=== PATIENT | female | born 1965 | race Caucasian/White ===

== ENCOUNTER 2017-11-10 08:25 | Inpatient (IN) | payer OTHER ==
[2017-11-06 10:52] VITALS: BMI 27.4
[2017-12-01] MEDS ORDERED: HEPARIN NA (PORCINE) 5,000 UNITS/ML 1ML VIAL ONE (07:19)
[2017-12-01] MEDS ORDERED: MIDAZOLAM HCL 2 MG/2 ML SINGLE DOSE VIAL ONE (07:29)
[2017-12-01] MEDS ORDERED: DESFLURANE GAS 240 ML BOTTLE IH ONE (07:43)
[2017-12-01] MEDS ORDERED: PROPOFOL 20 ML ONE ×18 (07:45→12:36)
[2017-12-01] MEDS ORDERED: ROCURONIUM BROMIDE 50 MG/5 ML VIAL ONE (07:54)
[2017-12-01] MEDS ORDERED: fentaNYL CITRATE 250 MCG/5 ML VIAL ONE ×2 (07:55)
[2017-12-01] MEDS ORDERED: THROMBIN (BOVINE) 5,000 UNIT VIAL TP ONE ×3 (07:59→09:23)
[2017-12-01] MEDS ORDERED: SUCCINYLCHOLINE CHLORIDE 200 MG/10 ML VIAL ONE (08:11)
[2017-12-01] MEDS ORDERED: VANCOMYCIN 1,000 MG VIAL (RESTRICTED TO ID ONLY) IVPB ONE (08:23)
[2017-12-01] MEDS ORDERED: ceFAZolin SODIUM 1 GM VIAL IVPB ONE ×2 (08:25→13:30)
[2017-12-01] MEDS ORDERED: TRANEXAMIC ACID 1000 MG/10 ML VIAL ONE ×2 (08:46→10:40)
[2017-12-01] MEDS ORDERED: GELATIN, ABSORBABLE 100 EACH SPONGE TP ONE ×2 (09:23)
[2017-12-01] MEDS ORDERED: DEXAMETHASONE SOD PHOSPHATE 4 MG/1 ML VIAL ONE ×5 (11:45)
[2017-12-01] MEDS ORDERED: ePHEDrine SULFATE 50 MG/1 ML AMPULE ONE (11:48)
[2017-12-01] MEDS ORDERED: BENZOIN/ALOE VERA/STORAX/TOLU 58 ML BOTTLE ONE (13:14)
[2017-12-01] MEDS ORDERED: ceFAZolin SODIUM 1 GM VIAL ONE ×2 (13:26→22:12)
--- NOTE | 2017-12-01 13:59 | OP ---
Operative Note - Note: Operative Date: 12/01/17 Pre-Operative Diagnosis: 1. T6-T7 disk herniation. 2. Thoracic myelopathy Operation: 1. Removal of spinal cord stimulator. 2. T6, T7 left sided pedicle osteotomies. 3. T4-T8 posterior decompression. 4. T6-T7 discectomy. 5. T4-T9 PISF. 6. BMAC autograft. 7. Allograft bone Post-Operative Diagnosis: Same as Pre-op Surgeon: Micheal Anthony Supervisory Civil Engineer: Bulmaro Anthony Anesthesiologist/INSTRUCTIONAL MEDIA SERVICES TECHNICIAN: Reilly London Anesthesia: General Specimens Removed: T6-T7 disc Estimated Blood Loss (mls): 750 Blood Volume Replaced (mls): 375 (Cell saver) Operative Report Dictated: Yes
--- NOTE | 2017-12-01 14:02 | PN ---
Progress Note (short form) - Note Progress Note: 52F s/p removal of spinal cord stimulator; T6, T7 left sided pedicle osteotomies ; T4-T8 posterior decompression; T6-T7 discectomy; T4-T9 PISF POD #0. -Admit to ICU post-op. -Maintain MAC >80mmHg. -Maintain hemoglobin > 10, transfuse PRBC as needed. -Pain control: per anaesthesia team. -q4h B/L LE NV checks. -DVT PPx: - Mechanical only: BLACK's, SCD's. -Incentive spirometry. -PT/OT/Rehab, OOB. -WBAT B/L LE. -Post-op antibiotics x 2 doses. -NPO until flatus. -d/c Moseley catheter when ambulating. -Care per medical hospitalist team. -Discharge planning. -Will follow. Micheal Anthony MD (Orthopaedic Surgery).
[2017-12-01] MEDS: ACETAMINOPHEN 1000 MG/100 ML VIAL (NON FORMULARY) IVPB SCH (14:03)
[2017-12-01] MEDS ORDERED: ONDANSETRON 4 MG/2 ML VIAL IVPUSH PRN ×2 (14:10→14:16)
[2017-12-01] MEDS ORDERED: PROMETHAZINE HCL 25 MG/1 ML VIAL IVPUSH PRN (14:10)
[2017-12-01] MEDS: LACTATED RINGERS SOLUTION 1,000 ML IV SCH (14:15)
[2017-12-01] MEDS ORDERED: LACTATED RINGERS SOLUTION 1,000 ML IV SCH (14:15)
[2017-12-01] MEDS ORDERED: PROMETHAZINE HCL 25 MG/1 ML VIAL IVPB PRN (14:16)
[2017-12-01] MEDS ORDERED: DEXAMETHASONE SOD PHOSPHATE 4 MG/1 ML VIAL IVPUSH ONE (14:16)
[2017-12-01] MEDS: HYDROmorphone *PCA* 10MG/50ML DISP.SYRIN PCA SCH (15:00)
[2017-12-01] MEDS ORDERED: CEFAZOLIN 1 GM in DEXTROSE 5%-WATER - 50 ML IVPB SCH ×2 (21:00→21:51)
[2017-12-01] MEDS ORDERED: DEXTROSE 5%-WATER - 50 ML IVPB ONE (22:13)
[2017-12-01] MEDS ORDERED: hydrALAZINE HCL 20 MG/ML VIAL IVPUSH ONE (23:15)
[2017-12-02 06:17] LABS: HEMATOCRIT 41.6 % (32.4-45.2); HEMOGLOBIN 14.4 GM/dL (10.7-15.3); MCH 30.5 pg (25.7-33.7); MCHC 34.6 g/dl (32.0-36.0); PLATELET COUNT 194 K/MM3 (134-434); RBC 4.72 M/mm3 (3.60-5.2); RDW 15.2 % (11.6-15.6); WHITE BLOOD COUNT 17.7 K/mm3 (4.0-10.0)
[2017-12-02] MEDS: ACETAMINOPHEN 1000 MG/100 ML VIAL (NON FORMULARY) IVPB SCH (06:31)
[2017-12-02 06:36] LABS: ANION GAP 8 (8-16); BLOOD UREA NITROGEN 9 mg/dL (7-18); CALCIUM 8.6 mg/dL (8.5-10.1); CHLORIDE 103 mmol/L (98-107); CO2 27 mmol/L (21-32); CREATININE 0.8 mg/dL (0.55-1.02); GLUCOSE,RANDOM 116 mg/dL (74-106); POTASSIUM 4.5 mmol/L (3.5-5.1); SODIUM 138 mmol/L (136-145)
--- NOTE | 2017-12-02 07:05 | OP ---
DATE OF OPERATION: 12/01/2017 SURGEON: Micheal Anthony M.D. PSYCH RN: Bulmaro Anthony M.D. PREOPERATIVE DIAGNOSIS: 1. Thoracic disk prolapse T6-7 with acute kyphosis. 2. For removal of in situ electrical stimulator. POSTOPERATIVE DIAGNOSIS: 1. Thoracic disk prolapse T6-7 with acute kyphosis. 2. For removal of in situ electrical stimulator. OPERATION PERFORMED: 1. Removal of electrical stimulator via separate right buttock and lumbar spine exposure. 2. Diskectomy C6-C7 with instrumented stabilization T4-T9. ANESTHESIA: General. ANTIBIOTICS GIVEN: 2 g Kefzol, 1 g vancomycin, 1 g Kefzol given intraoperatively, and also 10 mg Decadron given preoperatively, and 10 mg Decadron given intraoperatively. NEUROMONITORING: Utilized. CELL SAVER: Utilized. INTRAOPERATIVE FLUOROSCOPY: Utilized. OPERATION DETAILS: The patient was correctly identified, brought to the operating room. The back was prepped in routine manner with Betadine scrub solution, wiped with alcohol, DuraPrep applied, and the entire spine was exposed through this draping, which was a window drape. The indications for this operation were intractable midthoracic back pain with mild myelopathic signs and associated failed electrical stimulator which was utilized to treat this prolapse. The plan was for removal of internal fixator and appropriate transpedicular approach from posterior diskectomy and fusion from T4 to T9. In the prone position midline incision was utilized. The entire spine was exposed from T3 down to T10. In the prone position midline incision was utilized. The entire exposure of the sublaminar area as well as the soft tissue dissected off the tips of the spinous process, both left and right side. Once this had been performed, the transverse incision was made over the right buttock. Without any difficulty the electrical stimulator box was removed and dissected out. The wires were left, and then a separate incision at the area where the wires had been seated was then approached. The actual wires were noted and very easily pulled out of the epidural space and then freed completely, thus completely free the entire electrical stimulator apparatus. The wound was closed with subcutaneous 1 Vicryl, subcutaneous 3-0 Monocryl, with Steri-Strips. The difficulty of this operation was to identify the C6-C7 level. The imaging was available for intraoperative evaluation that included an MRI from T1 right down to sacrum. The shape of the bone, the levels and numbers of disks, as well as the area of the apex of the kyphosis were all taken in account to arrive at a level that was at T6-7 finding. This was done on a number of occasions. Once the entire dissection had been performed and we knew where T6-T7 was on left fluoroscopic x-ray, the lamina of 5 and 6 were resected and the lamina of T7 and right down to T8 were resected, freeing the cord completely. At the T6-7 level on the left hand side, the pedicle was identified. The dural elements were without any traction on the cord and very fine instrument placed so that no damage to the neural tissues occurred, and thus to shield the tissues from the Leksell rongeurs as well as the Midas-Benja noemy. The burring was through the pedicle and achieved the purpose of burring this down right flush to and just below the level of the posterior surface of the vertebral body both at T6 and T7 on the left hand side. This enabled very easy access to and visualization of the cord and the 2 nerve roots as they exited out the appropriate foramen. No other disturbance of intercostal vessels were noted. Coming from far lateral with virtually no retraction of the cord, a nerve root retractor was placed around the cord. It was held in that position to ensure no damage to the dura, and from under this segment using a Westerly probe and Jewell 4 probe, the large disk was identified. This was actually easily palpable as a large lump, and the 11 blade was made incised into the actual disk from the side. Using a petite rongeur as well as a very fine neurosurgical pituitary and upgoing pituitary rongeurs, the disk material was resected. Once this had been done, the lump was completely flattened in visually as well as palpably noted using Alva's to feel under ventral to the anterior surface of the dura. This was very different from what it was prior to this event taking place. Unfortunately at that point, motor evoked potentials level dropped, SSEP levels remained intact, and over the passage of the next hour, the signals slowly came back. It was at that point I ordered another 10 mg of Decadron and reinsured that the patient's blood pressure was maintained well. All Cell Saver blood was given back to the patient expeditiously. Blood loss was about 700 mL and 390 plus 400 mL of own concentrated blood was given back to her. To a completely independent site, the Jamshidi needle was seated into left posterior ilium, 60 mL of marrow were aspirated and this spun down for the CD34 cells. Once this had been completed and the entire decompression completed including the diskectomy, the pedicles of T4-5 as well as 6-7-8 were identified and a seating of the screws was first by drilling with a 3.2 drill bit, each pedicle screw measured 5.5 x 35 mm screws. These were Precision screws, and one screw measured 5.5 x 40. The screws, as discussed with the neuromonitoring team, were not tested because the adequacy of accuracy was minimal in thoracic screw evaluation. The rods were contoured appropriately, fixed solid into the screw heads, and tightened with the appropriate caps of the torque device. No cross links was utilized. Partial arthrodesis was performed. This was a combination of autologous as well as expanded bone. This was mixed with the CD34 cells with the bone marrow aspirate. This was placed posterolaterally alongside the lateral side of the actual rods themselves. On the basis of this, operation went extremely well. No complications excepting the drop in motor evoked potentials but not SSEPs, which remained concerning. The wounds were thoroughly lavaged throughout the closure, muscle 1 Vicryl, fascia 1 Vicryl , subcutaneous 1 and 2-0 Vicryl, skin 3-0 Monocryl with Steri-Strips. Drainage, nil. This in fact was a 4-layer closure in keeping with a complex wound closure of 25 cm. No other complications. MD LUIS ANTONIO Irving/[id number] MTDD
--- NOTE | 2017-12-02 08:40 | PN ---
Progress Note, Physician Chief Complaint: Pt resting comfortably in bed, using DIAMOND SORTER for pain control. No GA complaints - Current Medication List Current Medications: Active Medications Diazepam (Valium Injection -) 5 mg IVPUSH Q6H PRN PRN Reason: MUSCLE SPASMS Fentanyl (Sublimaze Injection -) 50 mcg IVPUSH [id number] PRN PRN Reason: PAIN-PACU ORDER X 4 DOSES ONLY Hydromorphone HCl (Dilaudid Sales Leader -) 0 mg DIAMOND SORTER DIAMOND SORTER KEVIN; Protocol Stop: 12/08/17 14:16 Last Admin: 12/01/17 15:00 Dose: 10 mg Lactated Ringer's (Lactated Ringers Solution) 1,000 mls @ 125 mls/hr IV ASDIR KEVIN Last Admin: 12/01/17 14:15 Dose: 125 mls/hr Ondansetron HCl (Zofran Injection) 4 mg IVPUSH Q6H PRN PRN Reason: NAUSEA AND/OR VOMITING Ondansetron HCl (Zofran Injection) 4 mg IVPUSH Q4H PRN PRN Reason: NAUSEA AND/OR VOMITING Promethazine HCl (Phenergan Injection -) 12.5 mg IVPB Q6H PRN PRN Reason: NAUSEA AND/OR VOMITING - Objective Vital Signs: Vital Signs Temperature 98.6 F 12/02/17 06:00 Pulse Rate 56 L 12/02/17 06:00 Respiratory Rate 18 12/02/17 06:00 Blood Pressure 163/101 12/02/17 06:00 O2 Sat by Pulse Oximetry (%) 100 12/01/17 19:59 Constitutional: Yes: Well Nourished, No Distress, Calm Neurological: Yes: WNL, Alert, Oriented Labs: CBC, BMP 12/02/17 06:00 12/02/17 06:00 Assessment/Plan POD#1 s/p T4-T8 spinal fusion with instrumentation under GA. Dilaudid DIAMOND SORTER. Doing well. Continue DIAMOND SORTER
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
--- NOTE | 2017-12-02 11:47 | PN ---
Teaching Attending Note Name of Resident: Carmelo Byrne ATTENDING PHYSICIAN STATEMENT I saw and evaluated the patient. I reviewed the resident's note and discussed the case with the resident. I agree with the resident's findings and plan as documented. SUBJECTIVE: Pt seen and examined in the ICU. Briefly, 52yo female with h/o thoracic herniated discs who underwent elective T6, T7 left sided pedicle osteotomies/T4- T8 posterior decompression/T6-T7 discectomy/T4-T9 PISF. EBL 750mL, 375mL cell saver returned. Received 1 unit PRBC, 2400mL crystalloid. States pain relatively controlled. No shortness of breath or chest pain. No flatus yet. No nausea or vomiting. OBJECTIVE: Vital Signs Period Temp Pulse Resp BP Sys/Watters Pulse Ox Last 24 Hr 97.2 F-98.6 F 50-96 13-22 118-181/60-101 99-100 Intake & Output 11/29/17 11/30/17 12/01/17 12/02/17 23:59 23:59 23:59 23:59 Intake Total 3700 1650 Output Total 2100 1200 Balance 1600 450 Gen: NAD at rest Heart: RRR Lung: decreased breath sounds at the bases Abd: soft, nontender Ext: no edema Back: dressing intact CBC, BMP 12/02/17 06:00 12/02/17 06:00 Active Medications Diazepam (Valium Injection -) 5 mg IVPUSH Q6H PRN PRN Reason: MUSCLE SPASMS Fentanyl (Sublimaze Injection -) 50 mcg IVPUSH [id number] PRN PRN Reason: PAIN-PACU ORDER X 4 DOSES ONLY Hydromorphone HCl (Dilaudid [employer] Coach -) 0 mg RIVER TRANSPORTATION WORKER RIVER TRANSPORTATION WORKER KEVIN; Protocol Stop: 12/08/17 14:16 Last Admin: 12/01/17 15:00 Dose: 10 mg Lactated Ringer's (Lactated Ringers Solution) 1,000 mls @ 125 mls/hr IV ASDIR KEVIN Last Admin: 12/01/17 14:15 Dose: 125 mls/hr Ondansetron HCl (Zofran Injection) 4 mg IVPUSH Q6H PRN PRN Reason: NAUSEA AND/OR VOMITING Ondansetron HCl (Zofran Injection) 4 mg IVPUSH Q4H PRN PRN Reason: NAUSEA AND/OR VOMITING Promethazine HCl (Phenergan Injection -) 12.5 mg IVPB Q6H PRN PRN Reason: NAUSEA AND/OR VOMITING ASSESSMENT AND PLAN: Disc Herniation s/p T6, T7 left sided pedicle osteotomies/T4-T8 posterior decompression/T6-T7 discectomy/T4-T9 PISF - pain control - incentive spirometry - IVF - d/c cohen when OOB - rehab/PT - PO/activity/DVT prophylaxis/disposition per surgery
--- NOTE | 2017-12-02 12:28 | CONSULT ---
Consultation: REQUESTING PROVIDER: Dr. Anthony CONSULT REQUEST: We have been asked to medically evaluate this patient for ( specify). HISTORY OF PRESENT ILLNESS: Patient is 52 yo F with a Pmhx of thoracic herniated disks, POD #1 for elective T6, T7 left sided pedicle osteotomies/T4- T8 posterior decompression/T6-T7 discectomy/T4-T9 PISF. Patient says pain is controlled with the medications. Has not passed Flatus or had BM. Denies sob, chest pain, nausea, vomiting, dizziness, dysuria. REVIEW OF SYSTEMS: CONSTITUTIONAL: Absent: fever, chills, diaphoresis, generalized weakness, malaise, loss of appetite, weight change HEENT: Absent: rhinorrhea, nasal congestion, throat pain, throat swelling, difficulty swallowing, mouth swelling, ear pain, eye pain, visual changes CARDIOVASCULAR: Absent: chest pain, syncope, palpitations, irregular heart rate, lightheadedness , peripheral edema RESPIRATORY: Absent: cough, shortness of breath, dyspnea with exertion, orthopnea, wheezing, stridor, hemoptysis GASTROINTESTINAL: Absent: abdominal pain, abdominal distension, nausea, vomiting, diarrhea, constipation, melena, hematochezia GENITOURINARY: Absent: dysuria, frequency, urgency, hesitancy, hematuria, flank pain, genital pain MUSCULOSKELETAL: Absent: myalgia, arthralgia, joint swelling, neck pain SKIN: Absent: rash, itching, pallor HEMATOLOGIC/IMMUNOLOGIC: Absent: easy bleeding, easy bruising, lymphadenopathy, frequent infections ENDOCRINE: Absent: unexplained weight gain, unexplained weight loss, heat intolerance, cold intolerance NEUROLOGIC: Absent: headache, focal weakness or paresthesias, dizziness, unsteady gait, seizure, mental status changes, bladder or bowel incontinence PHYSICAL EXAMINATION Vital Signs - 24 hr 12/01/17 12/01/17 12/01/17 14:06 14:20 14:30 Temperature 98.1 F Pulse Rate 69 68 59 L Respiratory 13 16 16 Rate Blood Pressure 134/96 136/91 145/81 O2 Sat by Pulse 100 100 99 Oximetry (%) 12/01/17 12/01/17 12/01/17 14:45 15:00 15:15 Temperature Pulse Rate 52 L 52 L 50 L Respiratory 18 16 16 Rate Blood Pressure 141/71 128/60 136/68 O2 Sat by Pulse 100 99 100 Oximetry (%) 12/01/17 12/01/17 12/01/17 15:30 15:45 16:00 Temperature Pulse Rate 52 L 51 L 51 L Respiratory 16 18 18 Rate Blood Pressure 137/69 146/78 152/74 O2 Sat by Pulse 100 99 99 Oximetry (%) 12/01/17 12/01/17 12/01/17 16:15 17:28 17:31 Temperature 97.7 F 97.2 F L Pulse Rate 51 L 58 L Respiratory 18 16 Rate Blood Pressure 148/72 144/75 O2 Sat by Pulse 100 Oximetry (%) 12/01/17 12/01/17 12/01/17 18:48 19:59 20:12 Temperature Pulse Rate 54 L 53 L Respiratory 18 18 15 Rate Blood Pressure 152/86 181/86 O2 Sat by Pulse 100 Oximetry (%) 12/01/17 12/02/17 12/02/17 22:00 00:00 02:00 Temperature 97.4 F L 97.6 F Pulse Rate 56 L 96 H 70 Respiratory 16 19 22 Rate Blood Pressure 178/84 118/74 128/79 O2 Sat by Pulse Oximetry (%) 12/02/17 12/02/17 12/02/17 04:00 06:00 08:00 Temperature 98.6 F Pulse Rate 60 56 L 73 Respiratory 20 18 17 Rate Blood Pressure 152/74 163/101 138/76 O2 Sat by Pulse Oximetry (%) 12/02/17 12/02/17 12/02/17 09:00 10:00 12:08 Temperature 98.3 F 98.3 F Pulse Rate 62 63 Respiratory 17 20 Rate Blood Pressure 144/84 159/76 O2 Sat by Pulse 100 Oximetry (%) GENERAL: A/o x 3, in NAD, comfortable EYES: Pupils equal, round and reactive to light, extraocular movements intact, sclera anicteric EARS, NOSE, THROAT: oropharynx clear without exudates. Moist mucous membranes. NECK: supple without lymphadenopathy, JVD, or masses. LUNGS: Breath sounds equal, clear to auscultation bilaterally. HEART: Regular rate and rhythm, normal S1 and S2 without murmur, rub or gallop. ABDOMEN: Soft, nontender, not distended, normoactive bowel sounds MUSCULOSKELETAL: Normal range of motion at all joints. Back with surgical dressing. LOWER EXTREMITIES: 2+ pulses, warm, well-perfused. No peripheral edema. NEUROLOGICAL: Cranial nerves II-XII intact. Normal speech. Laboratory Results - last 24 hr 12/01/17 12/01/17 12/02/17 06:12 06:50 06:00 WBC 17.7 H RBC 4.72 Hgb 14.4 Hct 41.6 MCV 88.0 MCH 30.5 MCHC 34.6 RDW 15.2 Plt Count 194 MPV 8.0 Sodium Potassium Chloride Carbon Dioxide Anion Gap BUN Creatinine Random Glucose Calcium Blood Type O POSITIVE Antibody Screen Negative Crossmatch See Detail Crossmatch IS Only See Detail 12/02/17 06:00 WBC RBC Hgb Hct MCV MCH MCHC RDW Plt Count MPV Sodium 138 Potassium 4.5 Chloride 103 Carbon Dioxide 27 Anion Gap 8 BUN 9 Creatinine 0.8 Random Glucose 116 H Calcium 8.6 Blood Type Antibody Screen Crossmatch Crossmatch IS Only Active Medications Generic Name Dose Route Start Last Admin Trade Name Freq PRN Reason Stop Dose Admin Diazepam 5 mg 12/01/17 14:03 Valium Injection - IVPUSH Q6H PRN MUSCLE SPASMS Fentanyl 50 mcg 12/01/17 16:13 Sublimaze Injection - IVPUSH [id number] PRN PAIN-PACU ORDER X 4 DOSES ONLY Hydromorphone HCl 0 mg 12/01/17 14:30 12/01/17 15:00 Dilaudid Electrical Transmission Engineer - AP PROCESSOR 12/08/17 14:16 10 mg AP PROCESSOR KEVIN Administration Protocol Lactated Ringer's 1,000 mls @ 125 mls/hr 12/01/17 14:15 12/01/17 14:15 Lactated Ringers Solution IV 125 mls/hr ASDIR KEVIN Administration Ondansetron HCl 4 mg 12/02/17 02:16 Zofran Injection IVPUSH Q6H PRN NAUSEA AND/OR VOMITING Ondansetron HCl 4 mg 12/01/17 14:16 Zofran Injection IVPUSH Q4H PRN NAUSEA AND/OR VOMITING Promethazine HCl 12.5 mg 12/01/17 14:16 Phenergan Injection - IVPB Q6H PRN NAUSEA AND/OR VOMITING ASSESSMENT/PLAN: #Removal of spinal cord stimulator w/ T6, T7 left sided pedicle osteotomies; T4- T8 posterior decompression; T6-T7 discectomy; T4-T9 PISF -POD #1 -Perioperative Ancef given; no need to continue -NPO until flatus -Remove cohen once ambulating. -Pain control via AP PROCESSOR pump currently -Incentive spirometer -Physical therapy ordered and weight-bearing as tolerated -Zofran 4mg IVP q4h PRN #FEN: -LR@125cc/hr -monitor lytes -NPO till flatus then advance to softs as tolerated #PPX: SCDs Dispo: We will continue to follow the patient. Thank you for this consultative opportunity. Visit type - Emergency Visit Emergency Visit: Yes ED Registration Date: 12/01/17 Care time: The patient presented to the Emergency Department on the above date and was hospitalized for further evaluation of their emergent condition. - New Patient This patient is new to me today: Yes Date on this admission: 12/02/17 - Critical Care Critical Care patient: Yes Total Critical Care Time (in minutes): 40 Critical Care Statement: The care of this patient involved high complexity decision making to prevent further life threatening deterioration of the patient 's condition and/or to evaluate & treat vital organ system(s) failure or risk of failure.
[2017-12-02] MEDS: ONDANSETRON 4 MG/2 ML VIAL IVPUSH PRN (17:49)
--- NOTE | 2017-12-02 18:26 | PN ---
Teaching Attending Note Name of Resident: Reilly Espitia ATTENDING PHYSICIAN STATEMENT I saw and evaluated the patient. I reviewed the resident's note and discussed the case with the resident. I agree with the resident's findings and plan as documented. SUBJECTIVE: OBJECTIVE: Vital Signs Temperature 98.3 F 12/02/17 12:08 Pulse Rate 79 12/02/17 16:42 Respiratory Rate 14 12/02/17 16:42 Blood Pressure 127/72 12/02/17 16:42 O2 Sat by Pulse Oximetry (%) 100 12/02/17 09:00 CBCD WBC 17.7 K/mm3 (4.0-10.0) H 12/02/17 06:00 RBC 4.72 M/mm3 (3.60-5.2) 12/02/17 06:00 Hgb 14.4 GM/dL (10.7-15.3) 12/02/17 06:00 Hct 41.6 % (32.4-45.2) 12/02/17 06:00 MCV 88.0 fl (80-96) 12/02/17 06:00 MCHC 34.6 g/dl (32.0-36.0) 12/02/17 06:00 RDW 15.2 % (11.6-15.6) 12/02/17 06:00 Plt Count 194 K/MM3 (134-434) 12/02/17 06:00 MPV 8.0 fl (7.5-11.1) 12/02/17 06:00 CMP Sodium 138 mmol/L (136-145) 12/02/17 06:00 Potassium 4.5 mmol/L (3.5-5.1) 12/02/17 06:00 Chloride 103 mmol/L (98-107) 12/02/17 06:00 Carbon Dioxide 27 mmol/L (21-32) 12/02/17 06:00 Anion Gap 8 (8-16) 12/02/17 06:00 BUN 9 mg/dL (7-18) 12/02/17 06:00 Creatinine 0.8 mg/dL (0.55-1.02) 12/02/17 06:00 Random Glucose 116 mg/dL (74-106) H 12/02/17 06:00 Calcium 8.6 mg/dL (8.5-10.1) 12/02/17 06:00 Current Medications Generic Name Dose Route Start Last Admin Trade Name Jluia PRN Reason Stop Dose Admin Fentanyl 50 mcg 12/01/17 16:13 Sublimaze Injection - IVPUSH [id number] PRN PAIN-PACU ORDER X 4 DOSES ONLY Hydromorphone HCl 0 mg 12/01/17 14:30 12/01/17 15:00 Dilaudid Electrical Control Assembler - CRNA 12/08/17 14:16 10 mg CRNA KEVIN Administration Protocol Lactated Ringer's 1,000 mls @ 125 mls/hr 12/01/17 14:15 12/01/17 14:15 Lactated Ringers Solution IV 125 mls/hr ASDIR KEVIN Administration Lorazepam 1 mg 12/01/17 14:03 Ativan Injection - IVPUSH Q6H PRN MUSCLE SPASMS Ondansetron HCl 4 mg 12/02/17 02:16 12/02/17 17:49 Zofran Injection IVPUSH 4 mg Q6H PRN Administration NAUSEA AND/OR VOMITING Ondansetron HCl 4 mg 12/01/17 14:16 Zofran Injection IVPUSH Q4H PRN NAUSEA AND/OR VOMITING Promethazine HCl 12.5 mg 12/01/17 14:16 Phenergan Injection - IVPB Q6H PRN NAUSEA AND/OR VOMITING Home Medications Medication Instructions Recorded NK [No Known Home Medication] 11/06/17 PE: per Dr. Anthony ASSESSMENT AND PLAN: # POD #! s/p Removal of spinal cord stimulator w/ T6, T7 left sided pedicle osteotomies; T4-T8 posterior decompression; T6-T7 discectomy; T4-T9 PISF as per further management DVT Px: SCDs; no AC as per surgery
[2017-12-03] MEDS: LACTATED RINGERS SOLUTION 1,000 ML IV SCH (01:00)
[2017-12-03 06:08] LABS: HEMATOCRIT 39.4 % (32.4-45.2); HEMOGLOBIN 13.4 GM/dL (10.7-15.3); MCH 30.3 pg (25.7-33.7); MCHC 34.1 g/dl (32.0-36.0); MEAN CELL VOLUME 88.9 fl (80-96); PLATELET COUNT 158 K/MM3 (134-434); RBC 4.43 M/mm3 (3.60-5.2); RDW 15.1 % (11.6-15.6)
[2017-12-03 06:36] LABS: ALK PHOS 50 U/L (45-117); ANION GAP 8 (8-16); BILIRUBIN,TOTAL 2.3 mg/dL (0.2-1.0); BLOOD UREA NITROGEN 8 mg/dL (7-18); CALCIUM 8.2 mg/dL (8.5-10.1); CHLORIDE 98 mmol/L (98-107); CO2 29 mmol/L (21-32); CREATININE 0.6 mg/dL (0.55-1.02); GLUCOSE,RANDOM 102 mg/dL (74-106); MAGNESIUM 1.6 mg/dL (1.8-2.4); PHOSPHOROUS 2.2 mg/dL (2.5-4.9); SGOT/AST 34 U/L (15-37); SGPT/ALT 28 U/L (12-78); SODIUM 135 mmol/L (136-145); TOT PROT 5.8 g/dl (6.4-8.2)
[2017-12-03] MEDS ORDERED: HYDROmorphone *PCA* 10MG/50ML DISP.SYRIN PCA ONE (07:42)
[2017-12-03] MEDS: HYDROmorphone *PCA* 10MG/50ML DISP.SYRIN PCA SCH (07:47)
--- NOTE | 2017-12-03 08:23 | PN ---
Physical Exam: SUBJECTIVE: Patient seen and examined. Offers no complaints. Says she felt a little warm last night. Has not had BM or passed flatus. Tmax 100. Sat 100% on RA. OBJECTIVE: Vital Signs Period Temp Pulse Resp BP Sys/Watters Pulse Ox Last 24 Hr 98.3 F-100 F 62-92 14-20 104-159/72-86 96-100 GENERAL: A/o x 3, in NAD, comfortable EYES: Pupils equal, round and reactive to light, extraocular movements intact, sclera anicteric EARS, NOSE, THROAT: oropharynx clear without exudates. Moist mucous membranes. NECK: supple without lymphadenopathy, JVD, or masses. LUNGS: Breath sounds equal, clear to auscultation bilaterally. HEART: Regular rate and rhythm, normal S1 and S2 without murmur, rub or gallop. ABDOMEN: Soft, nontender, not distended, normoactive bowel sounds MUSCULOSKELETAL: Normal range of motion at all joints. Back with surgical dressing. LOWER EXTREMITIES: 2+ pulses, warm, well-perfused. No peripheral edema. NEUROLOGICAL: Cranial nerves II-XII intact. Normal speech. Laboratory Results - last 24 hr 12/03/17 12/03/17 05:55 05:55 WBC 14.0 H RBC 4.43 Hgb 13.4 Hct 39.4 MCV 88.9 MCH 30.3 MCHC 34.1 RDW 15.1 Plt Count 158 MPV 8.0 Sodium 135 L Potassium 4.0 Chloride 98 Carbon Dioxide 29 Anion Gap 8 BUN 8 Creatinine 0.6 Creat Clearance w eGFR > 60 Random Glucose 102 Calcium 8.2 L Phosphorus 2.2 L Magnesium 1.6 L Total Bilirubin 2.3 H AST 34 ALT 28 Alkaline Phosphatase 50 Total Protein 5.8 L Albumin 3.0 L Active Medications Generic Name Dose Route Start Last Admin Trade Name Freq PRN Reason Stop Dose Admin Fentanyl 50 mcg 12/01/17 16:13 Sublimaze Injection - IVPUSH [id number] PRN PAIN-PACU ORDER X 4 DOSES ONLY Hydromorphone HCl 0 mg 12/01/17 14:30 12/03/17 07:47 Dilaudid Medical Donation Professional - WATER JET LOOM FIXER 12/08/17 14:16 0.2 mg WATER JET LOOM FIXER KEVIN Administration Protocol Lactated Ringer's 1,000 mls @ 125 mls/hr 12/01/17 14:15 12/03/17 01:00 Lactated Ringers Solution IV 125 mls/hr ASDIR KEVIN Administration Sodium Phosphate 30 mm/ 260 mls @ 62.5 mls/hr 12/03/17 07:19 Dextrose IVPB 12/03/17 11:28 ONCE ONE Lorazepam 1 mg 12/01/17 14:03 Ativan Injection - IVPUSH Q6H PRN MUSCLE SPASMS Magnesium Sulfate 2 gm 12/03/17 07:16 Magnesium Sulfate IVPB 12/03/17 07:17 ONCE ONE Ondansetron HCl 4 mg 12/02/17 02:16 12/02/17 17:49 Zofran Injection IVPUSH 4 mg Q6H PRN Administration NAUSEA AND/OR VOMITING Ondansetron HCl 4 mg 12/01/17 14:16 Zofran Injection IVPUSH Q4H PRN NAUSEA AND/OR VOMITING Promethazine HCl 12.5 mg 12/01/17 14:16 Phenergan Injection - IVPB Q6H PRN NAUSEA AND/OR VOMITING ASSESSMENT/PLAN: #Removal of spinal cord stimulator w/ T6, T7 left sided pedicle osteotomies; T4- T8 posterior decompression; T6-T7 discectomy; T4-T9 PISF -POD #2 -NPO until flatus -d/c cohen -Pain control via WATER JET LOOM FIXER pump currently -Incentive spirometer -Physical therapy and weight-bearing as tolerated -Zofran 4mg IVP q4h PRN #FEN: -LR@125cc/hr -monitor lytes -NPO till flatus then advance to softs as tolerated #PPX: SCDs cont. ICu monitoring Visit type - Emergency Visit Emergency Visit: Yes ED Registration Date: 12/01/17 Care time: The patient presented to the Emergency Department on the above date and was hospitalized for further evaluation of their emergent condition. - New Patient This patient is new to me today: No - Critical Care Critical Care patient: Yes Total Critical Care Time (in minutes): 40 Critical Care Statement: The care of this patient involved high complexity decision making to prevent further life threatening deterioration of the patient 's condition and/or to evaluate & treat vital organ system(s) failure or risk of failure.
--- NOTE | 2017-12-03 08:33 | PN ---
Progress Note (short form) - Note Progress Note: Post op day#2.P 88,BP 135/75 and Spo2 95% on RA.Patient stable and c/o pain score of 4-5/10 on movement on Dilaudid HYDRAULIC OIL TOOL OPERATOR.Will continue HYDRAULIC OIL TOOL OPERATOR today and will f/ u tomorrow.
--- NOTE | 2017-12-03 09:10 | PN ---
Physical Exam: SUBJECTIVE: Pt wants to move and be out of bed more. Pain well controlled on MARKETING RESEARCH COORDINATOR. No flatus yet. OBJECTIVE: Vital Signs Period Temp Pulse Resp BP Sys/Watters Pulse Ox Last 24 Hr 98.3 F-100 F 62-92 14-20 104-159/72-86 96-100 GENERAL: NAD, awake, alert, and fully oriented, laying in bed HEENT: EOMI, PRACHI, sclera anicteric and without injections, MMM LUNGS: CTA bilaterally. No wheezes, and no crackles. No accessory muscle use. HEART: RRR, normal S1 and S2 without murmur ABDOMEN: Soft, NT/ND, normoactive bowel sounds, no guarding. No hepatomegaly MUSCULOSKELETAL: Back with surgical bandage without any let-through; no erythema EXTREMITIES: 2+ DP pulses, warm, No peripheral edema. No calf tenderness NEUROLOGICAL: wire splicer II-XII intact. Strength 5/5 in upper extremity shrug, flexion extension and handgrip. Strength 5/5 in LE leg flexion, plantar/dorsal flexion. Normal speech. PSYCHIATRIC: Cooperative. Good eye contact. Appropriate mood and affect. SKIN: Warm, dry, no rashes or lesions noted. Laboratory Results - last 24 hr 12/03/17 12/03/17 05:55 05:55 WBC 14.0 H RBC 4.43 Hgb 13.4 Hct 39.4 MCV 88.9 MCH 30.3 MCHC 34.1 RDW 15.1 Plt Count 158 MPV 8.0 Sodium 135 L Potassium 4.0 Chloride 98 Carbon Dioxide 29 Anion Gap 8 BUN 8 Creatinine 0.6 Creat Clearance w eGFR > 60 Random Glucose 102 Calcium 8.2 L Phosphorus 2.2 L Magnesium 1.6 L Total Bilirubin 2.3 H AST 34 ALT 28 Alkaline Phosphatase 50 Total Protein 5.8 L Albumin 3.0 L Active Medications Generic Name Dose Route Start Last Admin Trade Name Freq PRN Reason Stop Dose Admin Fentanyl 50 mcg 12/01/17 16:13 Sublimaze Injection - IVPUSH [id number] PRN PAIN-PACU ORDER X 4 DOSES ONLY Hydromorphone HCl 0 mg 12/01/17 14:30 12/03/17 07:47 Dilaudid Portable Sawyer - MARKETING RESEARCH COORDINATOR 12/08/17 14:16 0.2 mg MARKETING RESEARCH COORDINATOR KEVIN Administration Protocol Lactated Ringer's 1,000 mls @ 125 mls/hr 12/01/17 14:15 12/03/17 01:00 Lactated Ringers Solution IV 125 mls/hr ASDIR KEVIN Administration Sodium Phosphate 30 mm/ 260 mls @ 62.5 mls/hr 12/03/17 07:19 Dextrose IVPB 12/03/17 11:28 ONCE ONE Lorazepam 1 mg 12/01/17 14:03 Ativan Injection - IVPUSH Q6H PRN MUSCLE SPASMS Magnesium Sulfate 2 gm 12/03/17 07:16 Magnesium Sulfate IVPB 12/03/17 07:17 ONCE ONE Ondansetron HCl 4 mg 12/02/17 02:16 12/02/17 17:49 Zofran Injection IVPUSH 4 mg Q6H PRN Administration NAUSEA AND/OR VOMITING Ondansetron HCl 4 mg 12/01/17 14:16 Zofran Injection IVPUSH Q4H PRN NAUSEA AND/OR VOMITING Promethazine HCl 12.5 mg 12/01/17 14:16 Phenergan Injection - IVPB Q6H PRN NAUSEA AND/OR VOMITING ASSESSMENT/PLAN: 1) Removal of spinal cord stimulator w/ T6, T7 left sided pedicle osteotomies; T4-T8 posterior decompression; T6-T7 discectomy; T4-T9 PISF --POD #2 --Dr. Anthony on board --Maintain MAP of ~80's --Tranfusion threshold >10 due to recent surgical intervention --Holding any AP and AC --Perioperative Ancef given; no need to continue --NPO until flatus --Continue cohen while incapacitated --Pain control via MARKETING RESEARCH COORDINATOR pump currently --Anesthesia on board --Bolus 0.2; basal 0.0 --Incentive spirometer q1h --Physical therapy ordered and weight-bearing as tolerated --Zofran 4mg IVP q4h PRN for nausea if needed FEN: LR@125cc/hr Electrolyte abnormalities - None today Nutrition: NPO till flatus then advance to softs as tolerated PPX: DVT - SCDs; holding a/p due to recent surgery Dispo: Continue monitoring; Thank you for this consultative opportunity. Case to be discussed with Dr. Bhavna Espitia, DO - IM PGY-1 Visit type - Emergency Visit Emergency Visit: No - New Patient This patient is new to me today: No - Critical Care Critical Care patient: No
[2017-12-03] MEDS ORDERED: MAGNESIUM 2GM/50ML STERILE WATER IVPB IVPB ONE (09:15)
[2017-12-03] MEDS: ONDANSETRON 4 MG/2 ML VIAL IVPUSH PRN (09:50)
[2017-12-03] MEDS ORDERED: SODIUM PHOSPHATE - 30 MM in DEXTROSE 5%-WATER - 250 ML IVPB ONE (10:00)
--- NOTE | 2017-12-03 10:59 | PN ---
Teaching Attending Note Name of Resident: Carmelo Byrne ATTENDING PHYSICIAN STATEMENT I saw and evaluated the patient. I reviewed the resident's note and discussed the case with the resident. I agree with the resident's findings and plan as documented. SUBJECTIVE: Pt seen and examined in the ICU. Pain controlled. No nausea or vomiting. No flatus or BM yet. OBJECTIVE: Vital Signs Period Temp Pulse Resp BP Sys/Watters Pulse Ox Last 24 Hr 97.4 F-100 F 63-92 14-20 98-159/64-86 96-100 Intake & Output 11/30/17 12/01/17 12/02/17 12/03/17 23:59 23:59 23:59 23:59 Intake Total 3700 3150 1500 Output Total 2100 2750 1600 Balance 1600 400 -100 Gen: NAD in chair Heart: RRR Lung: decreased breath sounds at the bases Abd: soft, nontender Ext: no edema CBC, BMP 12/03/17 05:55 12/03/17 05:55 Active Medications Fentanyl (Sublimaze Injection -) 50 mcg IVPUSH [id number] PRN PRN Reason: PAIN-PACU ORDER X 4 DOSES ONLY Hydromorphone HCl (Dilaudid Intellectual Property Lawyer -) 0 mg COMPENSATION SUPERVISOR COMPENSATION SUPERVISOR KEVIN; Protocol Stop: 12/08/17 14:16 Last Admin: 12/03/17 07:47 Dose: 0.2 mg Lactated Ringer's (Lactated Ringers Solution) 1,000 mls @ 125 mls/hr IV ASDIR KEVIN Last Admin: 12/03/17 01:00 Dose: 125 mls/hr Sodium Phosphate 30 mm/ (Dextrose) 260 mls @ 43.333 mls/hr IVPB ONCE ONE Stop: 12/03/17 15:59 Last Admin: 12/03/17 10:28 Dose: 43.333 mls/hr Lorazepam (Ativan Injection -) 1 mg IVPUSH Q6H PRN PRN Reason: MUSCLE SPASMS Ondansetron HCl (Zofran Injection) 4 mg IVPUSH Q6H PRN PRN Reason: NAUSEA AND/OR VOMITING Last Admin: 12/03/17 09:50 Dose: 4 mg Ondansetron HCl (Zofran Injection) 4 mg IVPUSH Q4H PRN PRN Reason: NAUSEA AND/OR VOMITING Promethazine HCl (Phenergan Injection -) 12.5 mg IVPB Q6H PRN PRN Reason: NAUSEA AND/OR VOMITING ASSESSMENT AND PLAN: Disc Herniation s/p T6, T7 left sided pedicle osteotomies/T4-T8 posterior decompression/T6-T7 discectomy/T4-T9 PISF - pain control - incentive spirometry - IVF - rehab/PT - PO/activity/DVT prophylaxis/disposition per surgery
--- NOTE | 2017-12-03 15:57 | PN ---
Teaching Attending Note Name of Resident: Reilly Espitia ATTENDING PHYSICIAN STATEMENT I saw and evaluated the patient. I reviewed the resident's note and discussed the case with the resident. I agree with the resident's findings and plan as documented. SUBJECTIVE: back pain , no weakness in LE . ambulating. No flatus OBJECTIVE: NAD Cv : RRR Lungs: CTAB MS: back with mid line surgical dressing Neuro: strength 5/5 in upper and lower extremities proximally and distally. Sensation to light touch NL. reflexes 2+ knee jerk and biceps b/l ASSESSMENT AND PLAN: 52 y/o lady wtih no significant PMH who presented with back pain now s/p spine sx 1- S/P Removal of spinal cord stimulator. T6, T7 left sided pedicle osteotomies. T4-T8 posterior decompression. T6-T7 discectomy, and T4-T9 PISF: - Record Searcher flatus yet. No BM - bowel regimen - NPO per sx - IVF - ambulation - cont LABELS MOLDER - PT - no nausea, hold zofran, check QTC .
--- NOTE | 2017-12-03 17:06 | PATH ---
Surgical Pathology Report Patient Name: STACEY ORR [facility]. Rec. #: [id number] /Age/Gender: 1965 (Age: 52) / F Account: [id number] Location: [facility] GRAIN CLEANER Taken: 12/01/2017 Received: 12/02/2017 Reported: 12/03/2017 Physicians: Micheal Anthony M.D. Specimen(s) Received T6-T7 DISC Clinical History Pain thoracic spine Final Diagnosis T6-T7 DISC, DISCECTOMY: FIBROCARTILAGINOUS TISSUE DEGENERATIVE CHANGE. Electronically Signed Sujey Adames M.D. Gross Description Received in formalin, labeled "T6-T7 disc" is a 1 x 1 x 0.3 cm aggregate of branham irregular soft tissue fragments. The specimen is totally submitted in one cassette. __ KAVON/12/02/2017 juan a/12/02/2017
[2017-12-04 08:56] LABS: ALBUMIN 2.4 g/dl (3.4-5.0); ALK PHOS 42 U/L (45-117); ANION GAP 12 (8-16); BILIRUBIN,DIRECT 0.5 mg/dL (0.0-0.2); BILIRUBIN,TOTAL 1.8 mg/dL (0.2-1.0); BLOOD UREA NITROGEN 7 mg/dL (7-18); CHLORIDE 99 mmol/L (98-107); CO2 25 mmol/L (21-32); CREATININE 0.4 mg/dL (0.55-1.02); GLUCOSE,RANDOM 88 mg/dL (74-106); MAGNESIUM 1.8 mg/dL (1.8-2.4); PHOSPHOROUS 2.2 mg/dL (2.5-4.9); POTASSIUM 3.7 mmol/L (3.5-5.1); SGOT/AST 29 U/L (15-37); SGPT/ALT 21 U/L (12-78); SODIUM 136 mmol/L (136-145); TOT PROT 5.1 g/dl (6.4-8.2)
[2017-12-04] MEDS ORDERED: oxyCODONE HCL 5 MG TABLET PO PRN ×3 (10:11→11:52)
[2017-12-04] MEDS ORDERED: HYDROmorphone HCL CARPU-JECT 1 MG/1 ML DISP.SYRIN IVPUSH PRN (10:12)
[2017-12-04] MEDS ORDERED: DEXTROSE 5%-NORMAL SALINE 1,000 ML IV SCH (10:30)
--- NOTE | 2017-12-04 10:43 | PN ---
Physical Exam: SUBJECTIVE: Patient seen and examined. says she was coughing overnight. Denies chest pain, nausea, vomiting, sob. Saturating well on RA. OBJECTIVE: Vital Signs Period Temp Pulse Resp BP Sys/Watters Pulse Ox Last 24 Hr 98 F-98.9 F 78-88 12-80 117-129/71-83 96 GENERAL: A/o x 3, in NAD, comfortable EYES: Pupils equal, round and reactive to light, extraocular movements intact, sclera anicteric EARS, NOSE, THROAT: oropharynx clear without exudates. Moist mucous membranes. NECK: supple without lymphadenopathy, JVD, or masses. LUNGS: Breath sounds equal, clear to auscultation bilaterally. HEART: Regular rate and rhythm, normal S1 and S2 without murmur, rub or gallop. ABDOMEN: Soft, nontender, not distended, normoactive bowel sounds MUSCULOSKELETAL: Normal range of motion at all joints. Back with surgical dressing. LOWER EXTREMITIES: 2+ pulses, warm, well-perfused. No peripheral edema. NEUROLOGICAL: Cranial nerves II-XII intact. Normal speech. Laboratory Results - last 24 hr 12/04/17 06:00 Sodium 136 Potassium 3.7 Chloride 99 Carbon Dioxide 25 Anion Gap 12 BUN 7 Creatinine 0.4 L Creat Clearance w eGFR > 60 Random Glucose 88 Calcium 8.0 L Phosphorus 2.2 L Magnesium 1.8 Total Bilirubin 1.8 H D Direct Bilirubin 0.5 H AST 29 ALT 21 Alkaline Phosphatase 42 L Total Protein 5.1 L Albumin 2.4 L Active Medications Generic Name Dose Route Start Last Admin Trade Name Freq PRN Reason Stop Dose Admin Docusate Sodium 100 mg 12/04/17 14:00 Colace - PO TID KEVIN Fentanyl 50 mcg 12/01/17 16:13 Sublimaze Injection - IVPUSH [id number] PRN PAIN-PACU ORDER X 4 DOSES ONLY Hydromorphone HCl 1 mg 12/04/17 10:12 Dilaudid Injection - IVPUSH Q6H PRN Pain 7-10 Lactated Ringer's 1,000 mls @ 125 mls/hr 12/01/17 14:15 12/03/17 01:00 Lactated Ringers Solution IV 125 mls/hr ASDIR KEVIN Administration Dextrose/Sodium Chloride 1,000 mls @ 75 mls/hr 12/04/17 10:30 D5-Ns - IV ASDIR KEVIN Lorazepam 1 mg 12/01/17 14:03 Ativan Injection - IVPUSH Q6H PRN MUSCLE SPASMS Oxycodone HCl 5 mg 12/04/17 10:11 Roxicodone - PO Q6H PRN Pain 4-6 Oxycodone HCl 10 mg 12/04/17 10:11 Roxicodone - PO Q6H PRN Pain 7-10 Promethazine HCl 12.5 mg 12/01/17 14:16 Phenergan Injection - IVPB Q6H PRN NAUSEA AND/OR VOMITING ASSESSMENT/PLAN: #Removal of spinal cord stimulator w/ T6, T7 left sided pedicle osteotomies; T4- T8 posterior decompression; T6-T7 discectomy; T4-T9 PISF -POD #2 -NPO until flatus -d/c cohen -D/c ADVERTISING OPERATIONS MANAGER pump -Incentive spirometer -Physical therapy and weight-bearing as tolerated -Zofran 4mg IVP q4h PRN #FEN: -D5 NS @ 75 -phosphate repleted. monitor lytes -NPO till flatus then advance to softs as tolerated #PPX: SCDs FU with surgery for med-surge transfer Visit type - Emergency Visit Emergency Visit: Yes ED Registration Date: 12/01/17 Care time: The patient presented to the Emergency Department on the above date and was hospitalized for further evaluation of their emergent condition. - New Patient This patient is new to me today: No - Critical Care Critical Care patient: Yes Total Critical Care Time (in minutes): 40 Critical Care Statement: The care of this patient involved high complexity decision making to prevent further life threatening deterioration of the patient 's condition and/or to evaluate & treat vital organ system(s) failure or risk of failure.
--- NOTE | 2017-12-04 10:54 | PN ---
Teaching Attending Note Name of Resident: Carmelo Byrne ATTENDING PHYSICIAN STATEMENT I saw and evaluated the patient. I reviewed the resident's note and discussed the case with the resident. I agree with the resident's findings and plan as documented. SUBJECTIVE: Pt seen and examined in the ICU. Ambulated down alberto but no flatus reported. Pain controlled. OBJECTIVE: Vital Signs Period Temp Pulse Resp BP Sys/Watters Pulse Ox Last 24 Hr 98 F-98.9 F 78-88 12-80 117-129/71-83 96 Intake & Output 12/01/17 12/02/17 12/03/17 12/04/17 23:59 23:59 23:59 23:59 Intake Total 3700 3150 3150 Output Total 2100 2750 1600 Balance 7173 129 3199 Weight 72.575 kg Gen: NAD in chair Heart: RRR Lung: decreased breath sounds at the bases Abd: soft, nontender Ext: no edema CBC, BMP 12/03/17 05:55 12/04/17 06:00 Active Medications Docusate Sodium (Colace -) 100 mg PO TID KEVIN Fentanyl (Sublimaze Injection -) 50 mcg IVPUSH [id number] PRN PRN Reason: PAIN-PACU ORDER X 4 DOSES ONLY Hydromorphone HCl (Dilaudid Injection -) 1 mg IVPUSH Q6H PRN PRN Reason: Pain 7-10 Lactated Ringer's (Lactated Ringers Solution) 1,000 mls @ 125 mls/hr IV ASDIR KEVIN Last Admin: 12/03/17 01:00 Dose: 125 mls/hr Dextrose/Sodium Chloride (D5-Ns -) 1,000 mls @ 75 mls/hr IV ASDIR KEVIN Sodium Phosphate 30 mm/ Sodium (Chloride) 260 mls @ 62.5 mls/hr IVPB ONCE ONE Stop: 12/04/17 14:48 Lorazepam (Ativan Injection -) 1 mg IVPUSH Q6H PRN PRN Reason: MUSCLE SPASMS Oxycodone HCl (Roxicodone -) 5 mg PO Q6H PRN PRN Reason: Pain 4-6 Oxycodone HCl (Roxicodone -) 10 mg PO Q6H PRN PRN Reason: Pain 7-10 Promethazine HCl (Phenergan Injection -) 12.5 mg IVPB Q6H PRN PRN Reason: NAUSEA AND/OR VOMITING ASSESSMENT AND PLAN: Disc Herniation s/p T6, T7 left sided pedicle osteotomies/T4-T8 posterior decompression/T6-T7 discectomy/T4-T9 PISF - pain control - incentive spirometry - decrease IVF rate - rehab/PT - PO/activity/DVT prophylaxis/disposition per surgery - can transfer to floors from medical standpoint
[2017-12-04 11:45] LABS: BASO % 0.2 % (0-2.0); EOS % 0.2 % (0-4.5); HEMATOCRIT 36.4 % (32.4-45.2); HEMOGLOBIN 12.3 GM/dL (10.7-15.3); LYMPH % 7.7 % (8-40); MCH 30.3 pg (25.7-33.7); MCHC 33.7 g/dl (32.0-36.0); MEAN CELL VOLUME 89.8 fl (80-96); MEAN PLT VOLUME 8.8 fl (7.5-11.1); MONO % 8.7 % (3.8-10.2); NEUT % 83.2 % (42.8-82.8); PLATELET COUNT 176 K/MM3 (134-434); RBC 4.06 M/mm3 (3.60-5.2); RDW 14.9 % (11.6-15.6); WHITE BLOOD COUNT 11.5 K/mm3 (4.0-10.0)
[2017-12-04] MEDS ORDERED: HYDROmorphone HCL CARPU-JECT 1 MG/1 ML DISP.SYRIN IVPB PRN (11:52)
--- NOTE | 2017-12-04 11:58 | PN ---
Teaching Attending Note Name of Resident: Reilly Espitia ATTENDING PHYSICIAN STATEMENT I saw and evaluated the patient. I reviewed the resident's note and discussed the case with the resident. I agree with the resident's findings and plan as documented. SUBJECTIVE: back pain is controlled. able to ambulate and walk in hallway. No fever or chills . No flatus and no BMs yet , but no N/V or abdominal distention OBJECTIVE: NAD Cv : RRR Lungs: CTAB MS: back with mid line surgical dressing Neuro: strength 5/5 in lower extremities proximally and distally. Sensation to light touch NL. reflexes 2+ knee jerk ASSESSMENT AND PLAN: 52 y/o lady with no significant PMH who presented with back pain now s/p spine sx 1- S/P Removal of spinal cord stimulator. T6, T7 left sided pedicle osteotomies. T4-T8 posterior decompression. T6-T7 discectomy, and T4-T9 PISF: - Detective Supervisor flatus or BM but no N/V . ? clears. per Sx - bowel regimen - lower rate of IVF - dc EXERCISE PLANNER and start IV dilaudid, and Oxycodone PRN - ambulation - PT 2- Leukocytosis : likely reactive, improved . 3- Hyperbilirubinemia : indirect bilirubin elevation is likely Gilbert's . improving after sx. No suspicion for obstruction . Nl ALT/ASt/Alk phos 4- replete hypophosphatemia 5- DVT Px , per ortho if safe
[2017-12-04] MEDS ORDERED: LORazepam 2 MG/ML SDV VIAL IVPUSH PRN (12:18)
[2017-12-04] MEDS ORDERED: SODIUM PHOSPHATE - 30 MM in SODIUM CHLORIDE 250 ML IVPB ONE (13:00)
--- NOTE | 2017-12-04 13:22 | PN ---
Progress Note (short form) - Note Progress Note: POD #3. VSS. Pt. doing well, resting comfortably in bed. No complaints. NITROCELLULOSE MAKER discontinued earlier - on prn IV dilaudid. Will sign off. Reconsult if needed.
--- NOTE | 2017-12-04 13:57 | PN ---
Physical Exam: SUBJECTIVE: Pt reports walking down one hallway and back of ICU corridor. She reports the pain is present, however still tolerable. She is willing to try PO narcotic PRN medication at this point. Denies having any episodes of flatus or BM's. OBJECTIVE: Vital Signs Period Temp Pulse Resp BP Sys/Watters Pulse Ox Last 24 Hr 98 F-98.9 F 78-88 12-80 117-129/71-78 96 GENERAL: NAD, awake, alert, and fully oriented, laying in bed HEENT: EOMI, PRACHI, sclera anicteric and without injections, MMM LUNGS: CTA bilaterally. No wheezes, and no crackles. No accessory muscle use. HEART: RRR, normal S1 and S2 without murmur ABDOMEN: Soft, NT/ND, normoactive bowel sounds, no guarding. No hepatomegaly MUSCULOSKELETAL: Back with surgical bandage without any let-through; no erythema EXTREMITIES: 2+ DP pulses, warm, No peripheral edema. No calf tenderness NEUROLOGICAL: sex worker or escort II-XII intact. Strength 5/5 in upper extremity shrug, flexion extension and handgrip. Strength 5/5 in LE leg flexion, plantar/dorsal flexion. Normal speech. PSYCHIATRIC: Cooperative. Good eye contact. Appropriate mood and affect. SKIN: Warm, dry, no rashes or lesions noted. Laboratory Results - last 24 hr 12/01/17 12/04/17 12/04/17 06:12 06:00 10:30 WBC 11.5 H RBC 4.06 Hgb 12.3 Hct 36.4 MCV 89.8 MCH 30.3 MCHC 33.7 RDW 14.9 Plt Count 176 MPV 8.8 Absolute Neuts (auto) 9.5 Neutrophils % 83.2 H Lymphocytes % 7.7 L Monocytes % 8.7 Eosinophils % 0.2 Basophils % 0.2 Nucleated RBC % 0 Sodium 136 Potassium 3.7 Chloride 99 Carbon Dioxide 25 Anion Gap 12 BUN 7 Creatinine 0.4 L Creat Clearance w eGFR > 60 Random Glucose 88 Calcium 8.0 L Phosphorus 2.2 L Magnesium 1.8 Total Bilirubin 1.8 H D Direct Bilirubin 0.5 H AST 29 ALT 21 Alkaline Phosphatase 42 L Total Protein 5.1 L Albumin 2.4 L Blood Type O POSITIVE Antibody Screen Negative Crossmatch See Detail Active Medications Generic Name Dose Route Start Last Admin Trade Name Freq PRN Reason Stop Dose Admin Docusate Sodium 100 mg 12/04/17 14:00 Colace - PO TID KEVIN Fentanyl 50 mcg 12/01/17 16:13 Sublimaze Injection - IVPUSH [id number] PRN PAIN-PACU ORDER X 4 DOSES ONLY Dextrose/Sodium Chloride 1,000 mls @ 75 mls/hr 12/04/17 10:30 12/04/17 13:22 D5-Ns - IV 75 mls/hr ASDIR KEVIN Administration Sodium Phosphate 30 mm/ Sodium 260 mls @ 65 mls/hr 12/04/17 13:00 12/04/17 13 :33 Chloride IVPB 12/04/17 16:59 65 mls/hr ONCE ONE Administration 30 MM/4 HR Lorazepam 1 mg 12/04/17 12:18 Ativan Injection - IVPUSH Q6H PRN MUSCLE SPASMS Oxycodone HCl 5 mg 12/04/17 11:52 Roxicodone - PO Q4H PRN PAIN LEVEL 1 - 3 Oxycodone HCl 10 mg 12/04/17 11:52 Roxicodone - PO Q6H PRN PAIN LEVEL 4 - 6 Promethazine HCl 12.5 mg 12/01/17 14:16 Phenergan Injection - IVPB Q6H PRN NAUSEA AND/OR VOMITING ASSESSMENT/PLAN: 1) Removal of spinal cord stimulator w/ T6, T7 left sided pedicle osteotomies; T4-T8 posterior decompression; T6-T7 discectomy; T4-T9 PISF --POD #3 --Dr. Anthony on board --Maintain MAP of ~80's --Tranfusion threshold >10 due to recent surgical intervention --Holding any AP and AC --NPO until flatus --Continue cohen while incapacitated --Discontinued PEDIATRICS PHYSICIAN pump due to pt's ability to walk without pain --Oxycodone 5mg PO q4h PRN pain 1-3 --Oxycodone 10mg PO q6h PRN pain 4-6 --Incentive spirometer q1h --Physical therapy and weight-bearing as tolerated --Zofran 4mg IVP q4h PRN for nausea if needed FEN: D5NS@75cc/hr Electrolyte abnormalities - None today Nutrition: NPO till flatus then advance to softs as tolerated PPX: DVT - SCDs; holding a/p due to recent surgery Dispo: Continue monitoring Case to be discussed with Dr. Bhavna Espitia, DO - IM PGY-1 Visit type - Emergency Visit Emergency Visit: No - New Patient This patient is new to me today: No - Critical Care Critical Care patient: No
[2017-12-04] MEDS: morphine SULFATE 4 MG/ML VIAL IVPUSH PRN ×2 (14:56→21:00)
[2017-12-04] MEDS: DOCUSATE SODIUM 100 MG CAPSULE (FP) PO SCH ×2 (15:02→22:34)
[2017-12-04] MEDS ORDERED: morphine SULFATE 4 MG/ML VIAL IVPUSH ONE (18:15)
[2017-12-05] MEDS: morphine SULFATE 4 MG/ML VIAL IVPUSH PRN (00:44)
[2017-12-05] MEDS: oxyCODONE HCL 5 MG TABLET PO PRN ×4 (04:17→20:37)
[2017-12-05 06:40] LABS: ALBUMIN 2.2 g/dl (3.4-5.0); ANION GAP 9 (8-16); BLOOD UREA NITROGEN 4 mg/dL (7-18); CHLORIDE 100 mmol/L (98-107); CO2 28 mmol/L (21-32); CREATININE 0.5 mg/dL (0.55-1.02); GLUCOSE,RANDOM 115 mg/dL (74-106); MAGNESIUM 1.8 mg/dL (1.8-2.4); POTASSIUM 3.5 mmol/L (3.5-5.1); SGOT/AST 24 U/L (15-37); SGPT/ALT 19 U/L (12-78); SODIUM 137 mmol/L (136-145)
[2017-12-05 06:42] LABS: ALK PHOS 38 U/L (45-117); BILIRUBIN,TOTAL 1.3 mg/dL (0.2-1.0); TOT PROT 5.1 g/dl (6.4-8.2)
--- NOTE | 2017-12-05 06:58 | PN ---
Progress Note (short form) - Note Progress Note: S: No complaints. Passed gas. Colace not given O: Vital Signs Period Temp Pulse Resp BP Sys/Watters Pulse Ox Last 24 Hr 98.2 F-98.8 F 66-81 13-20 127-162/77-88 99-99 Tele - No events GEN: AAOx3, NAD, Lying down w/ C-collar in place HEENT: PERRL, no JVD CV: S1, S2, RRR LUNG: CTABL ABD: Soft, NT, ND MSK: No edema, no erythema NEURO: Grossly intact bilaterally A/P: 52yo s/p removal of spinal cord stimulator, thoracic discectomy and fusion on # S/P thoracic spinal fusion surgery -- Ambulating. Pain controlled w/ IV morphine 4q4 and oxy PRN. Passing gas. # Indirect Hyperbili -- Trending down, possibly reactive. No abd pain # FEN/PPx -- D51/2ns at 75, SCDs # Dispo -- Transfer to floor Erica Rodriges MD pGY1 ICU Resident
[2017-12-05 07:11] LABS: HEMATOCRIT 34.5 % (32.4-45.2); HEMOGLOBIN 11.8 GM/dL (10.7-15.3); MCH 30.7 pg (25.7-33.7); MCHC 34.3 g/dl (32.0-36.0); MEAN CELL VOLUME 89.5 fl (80-96); MEAN PLT VOLUME 8.3 fl (7.5-11.1); PLATELET COUNT 153 K/MM3 (134-434); RBC 3.85 M/mm3 (3.60-5.2); RDW 14.5 % (11.6-15.6); WHITE BLOOD COUNT 6.9 K/mm3 (4.0-10.0)
[2017-12-05] MEDS ORDERED: POTASSIUM PHOSPHATE 20 MM in SODIUM CHLORIDE 250 ML IVPB ONE (09:30)
[2017-12-05] MEDS: DOCUSATE SODIUM 100 MG CAPSULE (FP) PO SCH ×4 (10:02→21:00)
--- NOTE | 2017-12-05 10:32 | PN ---
Teaching Attending Note Name of Resident: Erica Rodriges ATTENDING PHYSICIAN STATEMENT I saw and evaluated the patient. I reviewed the resident's note and discussed the case with the resident. I agree with the resident's findings and plan as documented. SUBJECTIVE: Patient seen and examined in the ICU. (+) Flatus. Pain seems better controlled. No CP or SOB. OBJECTIVE: Intake & Output 12/02/17 12/03/17 12/04/17 12/05/17 23:59 23:59 23:59 23:59 Intake Total 3150 3150 1800 725 Output Total 2750 1600 Balance 400 1550 1800 725 Weight 160 lb Last Vital Signs Temp Pulse Resp BP Pulse Ox 98.1 F 80 18 108/83 98 12/05/17 10:00 12/05/17 10:00 12/05/17 10:00 12/05/17 10:00 12/05/17 09:00 Active Medications Docusate Sodium (Colace -) 100 mg PO TID KEVIN Last Admin: 12/05/17 10:02 Dose: 100 mg Fentanyl (Sublimaze Injection -) 50 mcg IVPUSH [id number] PRN PRN Reason: PAIN-PACU ORDER X 4 DOSES ONLY Potassium Phosphate 20 mm/ (Sodium Chloride) 256.6667 mls @ 62.5 mls/hr IVPB ONCE ONE Stop: 12/05/17 13:36 Last Admin: 12/05/17 10:02 Dose: 62.5 mls/hr Lorazepam (Ativan Injection -) 1 mg IVPUSH Q6H PRN PRN Reason: MUSCLE SPASMS Morphine Sulfate (Morphine Sulfate) 4 mg IVPUSH Q4H PRN PRN Reason: PAIN LEVEL 7 - 10 Last Admin: 12/05/17 00:44 Dose: 4 mg Oxycodone HCl (Roxicodone -) 5 mg PO Q4H PRN PRN Reason: PAIN LEVEL 1 - 3 Oxycodone HCl (Roxicodone -) 10 mg PO Q6H PRN PRN Reason: PAIN LEVEL 4 - 6 Last Admin: 12/05/17 10:02 Dose: 10 mg Promethazine HCl (Phenergan Injection -) 12.5 mg IVPB Q6H PRN PRN Reason: NAUSEA AND/OR VOMITING Gen: NAD in bed Heart: RRR Lung: decreased breath sounds at the bases Abd: soft, nontender Ext: no edema Laboratory Results - last 24 hr 12/01/17 12/04/17 12/05/17 06:12 10:30 05:40 WBC 11.5 H 6.9 D RBC 4.06 3.85 Hgb 12.3 11.8 Hct 36.4 34.5 MCV 89.8 89.5 MCH 30.3 30.7 MCHC 33.7 34.3 RDW 14.9 14.5 Plt Count 176 153 MPV 8.8 8.3 Absolute Neuts (auto) 9.5 Neutrophils % 83.2 H Lymphocytes % 7.7 L Monocytes % 8.7 Eosinophils % 0.2 Basophils % 0.2 Nucleated RBC % 0 Sodium Potassium Chloride Carbon Dioxide Anion Gap BUN Creatinine Creat Clearance w eGFR Random Glucose Calcium Phosphorus Magnesium Total Bilirubin AST ALT Alkaline Phosphatase Total Protein Albumin Blood Type O POSITIVE Antibody Screen Negative Crossmatch See Detail 12/05/17 05:50 WBC RBC Hgb Hct MCV MCH MCHC RDW Plt Count MPV Absolute Neuts (auto) Neutrophils % Lymphocytes % Monocytes % Eosinophils % Basophils % Nucleated RBC % Sodium 137 Potassium 3.5 Chloride 100 Carbon Dioxide 28 Anion Gap 9 BUN 4 L Creatinine 0.5 L Creat Clearance w eGFR > 60 Random Glucose 115 H Calcium 8.0 L Phosphorus 2.0 L Magnesium 1.8 Total Bilirubin 1.3 H D AST 24 ALT 19 Alkaline Phosphatase 38 L Total Protein 5.1 L Albumin 2.2 L Blood Type Antibody Screen Crossmatch ASSESSMENT AND PLAN: Disc Herniation s/p T6, T7 left sided pedicle osteotomies/T4-T8 posterior decompression/T6-T7 discectomy/T4-T9 PISF - pain control - incentive spirometry - D/C IVF - rehab/PT - PO/activity/DVT prophylaxis/disposition per surgery - Floor Dr Aaron
[2017-12-05] MEDS ORDERED: DEXAMETHASONE SOD PHOSPHATE 4 MG/1 ML VIAL IVPUSH ONE (11:03)
[2017-12-05] MEDS ORDERED: morphine SULFATE 4 MG/ML VIAL IVPUSH PRN (11:03)
[2017-12-05] MEDS ORDERED: LORazepam 2 MG/ML SDV VIAL IVPUSH PRN (11:03)
[2017-12-05] MEDS ORDERED: PROMETHAZINE HCL 25 MG/1 ML VIAL IVPB PRN (11:03)
[2017-12-05] MEDS: LACTATED RINGERS SOLUTION 1,000 ML IV SCH (11:05)
[2017-12-05] MEDS: HYDROmorphone *PCA* 10MG/50ML DISP.SYRIN PCA SCH (11:06)
[2017-12-05] MEDS: ACETAMINOPHEN 1000 MG/100 ML VIAL (NON FORMULARY) IVPB SCH (11:06)
--- NOTE | 2017-12-05 13:46 | PN ---
Teaching Attending Note Name of Resident: Reilly Espitia ATTENDING PHYSICIAN STATEMENT I saw and evaluated the patient. I reviewed the resident's note and discussed the case with the resident. I agree with the resident's findings and plan as documented. SUBJECTIVE: no fever or chills . back pain is better . has flatus but no BM OBJECTIVE: NAD Cv : RRR Lungs: CTAB MS: back with mid line surgical dressing Neuro: strength 5/5 in lower extremities proximally and distally. Sensation to light touch NL. reflexes 2+ knee jerk ASSESSMENT AND PLAN: 52 y/o lady with no significant PMH who presented with back pain now s/p spine sx 1- S/P Removal of spinal cord stimulator. T6, T7 left sided pedicle osteotomies. T4-T8 posterior decompression. T6-T7 discectomy, and T4-T9 PISF: - toelrated diet - bowel regimen - dc IVF - cont po and IV pain meds, may dc IV morphine today - ambulation - PT 2- Leukocytosis : likely reactive, resolved 3- Hyperbilirubinemia : likely Gilbert's. improving after sx. No suspicion for obstruction . DVT Px , per ortho if safe Will d/w Neuro sx the timing of DC ( ? tomorrow )
[2017-12-05] MEDS ORDERED: POLYETHYLENE GLYCOL 3350 119 GM BTL PO PRN (13:49)
[2017-12-05] MEDS: SENNOSIDES 8.6MG TABLET (FP) PO SCH ×2 (20:56→21:00)
--- NOTE | 2017-12-05 22:49 | PN ---
Physical Exam: SUBJECTIVE: Past flatus this morning and continues to improve with ambulation. Pain well controlled. no other complaints today. OBJECTIVE: Vital Signs Period Temp Pulse Resp BP Sys/Watters Pulse Ox Last 24 Hr 97.8 F-98.4 F 66-95 13-20 108-160/74-83 98 GENERAL: NAD, awake, alert, and fully oriented, laying in bed HEENT: EOMI, PRACHI, sclera anicteric and without injections, MMM LUNGS: CTA bilaterally. No wheezes, and no crackles. No accessory muscle use. HEART: RRR, normal S1 and S2 without murmur ABDOMEN: Soft, NT/ND, normoactive bowel sounds, no guarding. No hepatomegaly MUSCULOSKELETAL: Back with surgical bandage without any let-through; no erythema EXTREMITIES: 2+ DP pulses, warm, No peripheral edema. No calf tenderness NEUROLOGICAL: alternative energy technician II-XII intact. Strength 5/5 in upper extremity shrug, flexion extension and handgrip. Strength 5/5 in LE leg flexion, plantar/dorsal flexion. Normal speech. PSYCHIATRIC: Cooperative. Good eye contact. Appropriate mood and affect. SKIN: Warm, dry, no rashes or lesions noted. Laboratory Results - last 24 hr 12/05/17 12/05/17 05:40 05:50 WBC 6.9 D RBC 3.85 Hgb 11.8 Hct 34.5 MCV 89.5 MCH 30.7 MCHC 34.3 RDW 14.5 Plt Count 153 MPV 8.3 Sodium 137 Potassium 3.5 Chloride 100 Carbon Dioxide 28 Anion Gap 9 BUN 4 L Creatinine 0.5 L Creat Clearance w eGFR > 60 Random Glucose 115 H Calcium 8.0 L Phosphorus 2.0 L Magnesium 1.8 Total Bilirubin 1.3 H D AST 24 ALT 19 Alkaline Phosphatase 38 L Total Protein 5.1 L Albumin 2.2 L Active Medications Generic Name Dose Route Start Last Admin Trade Name Freq PRN Reason Stop Dose Admin Docusate Sodium 100 mg 12/05/17 14:00 12/05/17 21:00 Colace - PO Not Given TID KEVIN Fentanyl 50 mcg 12/05/17 11:03 Sublimaze Injection - IVPUSH [id number] PRN PAIN-PACU ORDER X 4 DOSES ONLY Lorazepam 1 mg 12/05/17 11:03 Ativan Injection - IVPUSH Q6H PRN MUSCLE SPASMS Oxycodone HCl 5 mg 12/05/17 11:03 12/05/17 20:37 Roxicodone - PO 5 mg Q4H PRN Administration PAIN LEVEL 1 - 3 Oxycodone HCl 10 mg 12/05/17 11:03 12/05/17 15:57 Roxicodone - PO 10 mg Q6H PRN Administration PAIN LEVEL 4 - 6 Polyethylene Glycol 17 gm 12/05/17 13:49 Miralax (For Daily Use) - PO DAILY PRN CONSTIPATION Promethazine HCl 12.5 mg 12/05/17 11:03 Phenergan Injection - IVPB Q6H PRN NAUSEA AND/OR VOMITING Senna 2 tab 12/05/17 22:00 12/05/17 21:00 Senna - PO Not Given HS [facility] ASSESSMENT/PLAN: 1) Removal of spinal cord stimulator w/ T6, T7 left sided pedicle osteotomies; T4-T8 posterior decompression; T6-T7 discectomy; T4-T9 PISF --POD #4 --Dr. Anthony on board: --Need to discuss about wound care and possibility of discharge tomorrow --Pt tolerating clear liquids; can advance to full liquids --Hesitant to advance to softs w/o BM --Continue cohen while incapacitated --Continue pain regiment --Oxycodone 5mg PO q4h PRN pain 1-3 --Oxycodone 10mg PO q6h PRN pain 4-6 --Incentive spirometer q1h --Physical therapy and weight-bearing as tolerated --Prescribed rolling walker for pt's home --Zofran 4mg IVP q4h PRN for nausea if needed FEN: Discontinue fluids Electrolyte abnormalities - None today Nutrition: Full liquids PPX: DVT - SCDs; holding a/p due to recent surgery Dispo: D/C planning Case to be discussed with Dr. Bhavna Espitia, DO - IM PGY-1 Visit type - Emergency Visit Emergency Visit: No - New Patient This patient is new to me today: No - Critical Care Critical Care patient: No
[2017-12-06] MEDS: oxyCODONE HCL 5 MG TABLET PO PRN ×4 (00:44→22:03)
[2017-12-06] MEDS: DOCUSATE SODIUM 100 MG CAPSULE (FP) PO SCH ×3 (06:04→21:49)
[2017-12-06] MEDS ORDERED: ACETAMINOPHEN 325 MG TABLET (FP) PO ONE (08:22)
--- NOTE | 2017-12-06 09:22 | EKG ---
Test Reason : Blood Pressure : / mmHG Vent. Rate : 053 BPM Atrial Rate : 053 BPM P-R Int : 114 ms QRS Dur : 090 ms QT Int : 486 ms P-R-T Axes : -15 023 -07 degrees QTc Int : 456 ms SINUS BRADYCARDIA OTHERWISE NORMAL ECG NO PREVIOUS ECGS AVAILABLE Confirmed by FRANNY MADSEN, RASHIDA ([id number]) on 12/06/2017 9:22:03 AM Referred By: Micheal Anthony Confirmed By:RASHIDA BLANTON MD
[2017-12-06] MEDS ORDERED: NAPH,MB-DB/K PH,MBDB POWDER PACKET PO ONE (09:50)
[2017-12-06] MEDS ORDERED: MAGNESIUM OXIDE 400 MG TABLET (FP) PO ONE (09:51)
[2017-12-06] MEDS: HEPARIN NA (PORCINE) 5,000 UNITS/ML 1ML VIAL SQ SCH ×3 (11:23→21:49)
--- NOTE | 2017-12-06 13:17 | PN ---
Addendum entered and electronically signed by Raul Mayer, RESIDENT 12/06/17 13:40: diet changed t soft diet miralex started bid Original Note: Physical Exam: SUBJECTIVE: Patient seen and examined over night patient asked for oxycodone twice. This morning complains of pain in left side of chest along left subcostal margin , tender to touch. Patient reports that this pain is same which she s having from 3 days, she states she doesn't have back pain. Patient as no history of chicken pox and has no exposure to it. Pain is not radiating to shoulder, neck or jaw. not associated with diziness and palpitations. reports she has gets sob because it hurt when she breaths. EKG done in morning no new changes. will cxr and rib x ray OBJECTIVE: Vital Signs Period Temp Pulse Resp BP Sys/Watters Pulse Ox Last 24 Hr 97.3 F-97.8 F 53-95 18-20 122-177/72-94 98-98 GENERAL: The patient is awake, alert, complaining of pain HEAD: Normal with no signs of trauma. ENT: , moist mucous membranes. NECK: Trachea midline, full range of motion, supple. LUNGS: Breath sounds equal, clear to auscultation bilaterally, no wheezes, no crackles, no accessory muscle use. Tenderness present along left subcostal margin. HEART: Regular rate and rhythm, S1, S2 normal. ABDOMEN: Soft, nontender, nondistended, normoactive bowel sounds, no guarding, no rebound, dressing present in back EXTREMITIES: 2+ pulses, warm, well-perfused, no edema. . SKIN: Warm, dry, Active Medications Generic Name Dose Route Start Last Admin Trade Name Freq PRN Reason Stop Dose Admin Docusate Sodium 100 mg 12/05/17 14:00 12/06/17 06:04 Colace - PO 100 mg TID KEVIN Administration Fentanyl 50 mcg 12/05/17 11:03 Sublimaze Injection - IVPUSH [id number] PRN PAIN-PACU ORDER X 4 DOSES ONLY Heparin Sodium (Porcine) 5,000 unit 12/06/17 11:12 12/06/17 11:23 Heparin - SQ 5,000 unit TID KEVIN Administration Lorazepam 1 mg 12/05/17 11:03 Ativan Injection - IVPUSH Q6H PRN MUSCLE SPASMS Oxycodone HCl 5 mg 12/05/17 11:03 12/06/17 00:44 Roxicodone - PO 5 mg Q4H PRN Administration PAIN LEVEL 1 - 3 Oxycodone HCl 10 mg 12/05/17 11:03 12/06/17 08:57 Roxicodone - PO 10 mg Q6H PRN Administration PAIN LEVEL 4 - 6 Polyethylene Glycol 17 gm 12/05/17 13:49 Miralax (For Daily Use) - PO DAILY PRN CONSTIPATION Promethazine HCl 12.5 mg 12/05/17 11:03 Phenergan Injection - IVPB Q6H PRN NAUSEA AND/OR VOMITING Senna 2 tab 12/05/17 22:00 12/05/17 21:00 Senna - PO Not Given HS [facility] ASSESSMENT/PLAN: 1) Removal of spinal cord stimulator w/ T6, T7 left sided pedicle osteotomies; T4-T8 posterior decompression; T6-T7 discectomy; T4-T9 PISF --POD #5 --Dr. Anthony on board: -- on liquid diet tolerated well, didn't have bowel movement yet although BS + and pain is passing flatus. -- cohen removed yesterday, voidng fine -- Physical therapy and weight-bearing as tolerated -- spirometry q1h --Continue pain regiment --Oxycodone 5mg PO q4h PRN pain 1-3 --Oxycodone 10mg PO q6h PRN pain 4-6 -- patient is allergic to NSAID -- watch for heart rate, as her HR is 52. but she is haemodynamically stable. -- Zofran 4mg IVP q4h PRN for nausea if needed -- cxr and rib xray reviewed. -- watch for rash around left subcoastal area: Currently has no rash. -- pain in left subcoastal area can also occur from intercostal nerve irritation. Hyperbilrubenemia getting better could be due to cell breakdown. FEN: orally allowed Electrolyte abnormalities - None today Nutrition: Full liquids PPX: DVT - citlali start her on heparin sq Visit type - Emergency Visit Emergency Visit: Yes ED Registration Date: 12/01/17 Care time: The patient presented to the Emergency Department on the above date and was hospitalized for further evaluation of their emergent condition. - New Patient This patient is new to me today: No - Critical Care Critical Care patient: No
[2017-12-06] MEDS: CYCLOBENZAPRINE HCL 10 MG TABLET (FP) PO SCH (13:44)
--- NOTE | 2017-12-06 16:15 | PN ---
Teaching Attending Note Name of Resident: Raul Mayer ATTENDING PHYSICIAN STATEMENT I saw and evaluated the patient. I reviewed the resident's note and discussed the case with the resident. I agree with the resident's findings and plan as documented. SUBJECTIVE: Left sided chest pain, with deep inspiration. SOb due to pain with each breath .no trauma. does not have pain or between breaths OBJECTIVE: NAD Cv: RRR Lungs: CTAB MS: back with mid line surgical dressing. TTP over L lateral and anterior ribs. no rash . no pain with rubbing skin or pinching skinand soft tissue. just deep palpation of ribs . Neuro: strength 5/5 in lower extremities proximally and distally. Sensation to light touch NL. reflexes 2+ knee jerk ASSESSMENT AND PLAN: 52 y/o lady with no significant PMH who presented with back pain now s/p spine sx 1- S/P Removal of spinal cord stimulator. T6, T7 left sided pedicle osteotomies. T4-T8 posterior decompression. T6-T7 discectomy, and T4-T9 PISF: - advance diet to regular - bowel regimen - dc iv morphine . cont po meds . - ambulation - PT 2- L sided chest pain: EKG with no acute ischemic changes. cxray and rib xray neg. no suspicion for PE: no S1Q3T3 on EKG, no hypotension , no tachycardia and no hypoxia . will monitor closely 3- Hyperbilirubinemia : likely Gilbert's. improving after sx. No suspicion for obstruction . 4- DVT PX : start heparin Sq
--- NOTE | 2017-12-06 19:09 | PN ---
Progress Note (short form) - Note Progress Note: POD#5 Thoacic tranpedicular disc resection T6/7 with kyphosis and instrumented fusion Doing well Walked in the hallway climbed stairs. C/O incisional pain CVS Stable RESP Clear ABD Soft Not distended No stool Neuro at baseline All intact motor and sensory ASSESSMENT Doing well For better pain control PLAN Add toradol D/C plaining To rehab PT Mobilze FWBAT
[2017-12-06] MEDS: SENNOSIDES 8.6MG TABLET (FP) PO SCH (21:49)
[2017-12-06] MEDS: PANTOPRAZOLE SODIUM 40 MG VIAL IVPUSH SCH (21:49)
[2017-12-06] MEDS: POLYETHYLENE GLYCOL 3350 119 GM BTL PO SCH (21:50)
[2017-12-07] MEDS: oxyCODONE HCL 5 MG TABLET PO PRN ×2 (04:14→21:57)
[2017-12-07] MEDS: traMADol HCL 50 MG TABLET PO SCH ×3 (05:56→17:27)
[2017-12-07] MEDS: DOCUSATE SODIUM 100 MG CAPSULE (FP) PO SCH ×3 (05:58→21:56)
[2017-12-07] MEDS: HEPARIN NA (PORCINE) 5,000 UNITS/ML 1ML VIAL SQ SCH ×3 (05:58→21:56)
[2017-12-07 08:53] LABS: BASO % 0.4 % (0-2.0); EOS % 1.1 % (0-4.5); HEMATOCRIT 38.9 % (32.4-45.2); HEMOGLOBIN 13.5 GM/dL (10.7-15.3); LYMPH % 17.6 % (8-40); MCH 30.5 pg (25.7-33.7); MCHC 34.6 g/dl (32.0-36.0); MEAN CELL VOLUME 88.2 fl (80-96); MEAN PLT VOLUME 7.6 fl (7.5-11.1); NEUT % 70.9 % (42.8-82.8); PLATELET COUNT 276 K/MM3 (134-434); RBC 4.41 M/mm3 (3.60-5.2); RDW 14.5 % (11.6-15.6); WHITE BLOOD COUNT 6.6 K/mm3 (4.0-10.0)
[2017-12-07] MEDS: CYCLOBENZAPRINE HCL 10 MG TABLET (FP) PO SCH (09:04)
[2017-12-07] MEDS: POLYETHYLENE GLYCOL 3350 119 GM BTL PO SCH ×2 (09:05→21:56)
[2017-12-07] MEDS: PANTOPRAZOLE SODIUM 40 MG VIAL IVPUSH SCH ×2 (09:05→22:06)
[2017-12-07 09:12] LABS: ALBUMIN 2.9 g/dl (3.4-5.0); ANION GAP 7 (8-16); BLOOD UREA NITROGEN 10 mg/dL (7-18); CALCIUM 9.2 mg/dL (8.5-10.1); CHLORIDE 96 mmol/L (98-107); CO2 33 mmol/L (21-32); CREATININE 0.7 mg/dL (0.55-1.02); GLUCOSE,RANDOM 97 mg/dL (74-106); POTASSIUM 3.4 mmol/L (3.5-5.1); SGOT/AST 30 U/L (15-37); SGPT/ALT 31 U/L (12-78); SODIUM 136 mmol/L (136-145)
[2017-12-07 09:14] LABS: ALK PHOS 56 U/L (45-117); BILIRUBIN,TOTAL 1.3 mg/dL (0.2-1.0); TOT PROT 6.7 g/dl (6.4-8.2)
[2017-12-07 10:39] LABS: OVALOCYTE 1+; PLATELET ESTIMATE NORMAL
--- NOTE | 2017-12-07 11:49 | PN ---
Progress Note (short form) - Note Progress Note: Stable No change from yesterday Wound dry Will change dressing tomorrow. PLAN Pain mx PT mobilize
[2017-12-07] MEDS ORDERED: POTASSIUM CHLORIDE TABS 20 MEQ TABLET.ER (FP) PO ONE (17:18)
--- NOTE | 2017-12-07 17:24 | PN ---
Progress Note (short form) - Note Progress Note: Subjective: No fever or chills . No abd pain . L sided chest pain has almost resolved . nO SOB . no pleuritic c=features. pain is there when she changes position in bed. Objective: Vital Signs: Last Vital Signs Temp Pulse Resp BP Pulse Ox 98.0 F 79 18 112/72 98 12/07/17 16:05 12/07/17 16:05 12/07/17 16:05 12/07/17 16:05 12/06/17 21:00 Laboratory Results - last 24 hr 12/07/17 12/07/17 08:05 08:05 WBC 6.6 RBC 4.41 Hgb 13.5 D Hct 38.9 MCV 88.2 MCH 30.5 MCHC 34.6 RDW 14.5 Plt Count 276 D MPV 7.6 Absolute Neuts (auto) 4.7 Neutrophils % 70.9 Neutrophils % (Manual) 67.0 Band Neutrophils % 0.0 Lymphocytes % 17.6 D Lymphocytes % (Manual) 23.0 Monocytes % 10.0 Monocytes % (Manual) 9 Eosinophils % 1.1 D Eosinophils % (Manual) 0.0 Basophils % 0.4 Basophils % (Manual) 0.0 Myelocytes % (Man) 0 Promyelocytes % (Man) 0 Blast Cells % (Manual) 0 Nucleated RBC % 0 Metamyelocytes 1 Platelet Estimate Normal Ovalocytes 1+ Stomatocytes 1+ Sodium 136 Potassium 3.4 L Chloride 96 L Carbon Dioxide 33 H Anion Gap 7 L BUN 10 Creatinine 0.7 Creat Clearance w eGFR > 60 Random Glucose 97 Calcium 9.2 Total Bilirubin 1.3 H AST 30 ALT 31 Alkaline Phosphatase 56 Total Protein 6.7 Albumin 2.9 L Physical Exam: NAD Cv: RRR Lungs: CTAB MS: back with mid line surgical dressing. TTP over L lateral and anterior ribs ( much improved ) . no rash . Neuro: strength 5/5 in lower extremities proximally and distally. Sensation to light touch NL. reflexes 2+ knee jerk ASSESSMENT AND PLAN: 52 y/o lady with no significant PMH who presented with back pain now s/p spine sx 1- S/P Removal of spinal cord stimulator. T6, T7 left sided pedicle osteotomies. T4-T8 posterior decompression. T6-T7 discectomy, and T4-T9 PISF: - bowel regimen -cont po pain meds. tramadol added - ambulation - dressing to be changed tomorrow 2- L sided MS chest pain: improved . 3- Hyperbilirubinemia : improved 4- hypokalemia : replete K. 5- DVT PX : heparin Sq will start lookng for rehab tomorrow Visit type - Emergency Visit Emergency Visit: Yes ED Registration Date: 12/01/17 Care time: The patient presented to the Emergency Department on the above date and was hospitalized for further evaluation of their emergent condition. - New Patient This patient is new to me today: No - Critical Care Critical Care patient: No
[2017-12-07] MEDS: SENNOSIDES 8.6MG TABLET (FP) PO SCH (21:55)
[2017-12-08] MEDS: traMADol HCL 50 MG TABLET PO SCH ×5 (01:21→23:36)
[2017-12-08] MEDS: DOCUSATE SODIUM 100 MG CAPSULE (FP) PO SCH ×3 (06:00→23:05)
[2017-12-08] MEDS: HEPARIN NA (PORCINE) 5,000 UNITS/ML 1ML VIAL SQ SCH ×3 (06:03→23:05)
[2017-12-08] MEDS: CYCLOBENZAPRINE HCL 10 MG TABLET (FP) PO SCH (09:30)
[2017-12-08] MEDS: POLYETHYLENE GLYCOL 3350 119 GM BTL PO SCH ×2 (09:31→23:05)
[2017-12-08] MEDS: PANTOPRAZOLE SODIUM 40 MG VIAL IVPUSH SCH ×2 (09:32→23:06)
--- NOTE | 2017-12-08 17:31 | PN ---
Teaching Attending Note Name of Resident: Reilly Espitia ATTENDING PHYSICIAN STATEMENT I saw and evaluated the patient. I reviewed the resident's note and discussed the case with the resident. I agree with the resident's findings and plan as documented. SUBJECTIVE: no fever or chills . No cp today OBJECTIVE: NAD Cv: RRR Lungs: CTAB MS: back with mid line surgical dressing.NO TTP over L lateral and anterior ribs today Neuro: strength 5/5 in lower extremities proximally and distally. Sensation to light touch NL. reflexes 2+ knee jerk ASSESSMENT AND PLAN: 52 y/o lady with no significant PMH who presented with back pain now s/p spine sx 1- S/P Removal of spinal cord stimulator. T6, T7 left sided pedicle osteotomies. T4-T8 posterior decompression. T6-T7 discectomy, and T4-T9 PISF: - bowel regimen -cont po pain meds - ambulation - dressing to be changed today 2- L sided MS chest pain: resolved 3- Hyperbilirubinemia : improved 4- hypokalemia: resolved 5- DVT PX : heparin Sq await rehab placement if possible
[2017-12-08] MEDS ORDERED: LACTULOSE 20 GM/30 ML UDC (FOR ORAL USE ONLY) PO ONE (17:45)
--- NOTE | 2017-12-08 20:53 | PN ---
Physical Exam: SUBJECTIVE: Over weekend pt complained of chest discomfort found to have costochondritis. Pt has been passing flatus, improving her physical therapy, however no BM yet. Denies abdominal pain and distention. OBJECTIVE: Vital Signs Period Temp Pulse Resp BP Sys/Watters Pulse Ox Last 24 Hr 97.5 F-98.8 F 64-74 18-20 124-140/77-88 GENERAL: NAD, awake, alert, and fully oriented, laying in bed HEENT: EOMI, PRACHI, sclera anicteric and without injections, MMM LUNGS: CTA bilaterally. No wheezes, and no crackles. HEART: RRR, normal S1 and S2 without murmur ABDOMEN: Soft, NT/ND, normoactive bowel sounds, no guarding. No hepatomegaly EXTREMITIES: 2+ DP pulses, warm, No peripheral edema. No calf tenderness NEUROLOGICAL: commercial loan assistant II-XII intact. Strength 5/5 in upper extremity shrug, flexion extension and handgrip. Strength 5/5 in LE leg flexion, plantar/dorsal flexion. Normal speech. PSYCHIATRIC: Cooperative. Good eye contact. Appropriate mood and affect. SKIN: Warm, dry, no rashes or lesions noted. Laboratory Results - last 24 hr 12/01/17 12/08/17 06:50 07:30 Potassium 4.0 Crossmatch IS Only See Detail Active Medications Generic Name Dose Route Start Last Admin Trade Name Freq PRN Reason Stop Dose Admin Cyclobenzaprine HCl 5 mg 12/06/17 13:31 12/08/17 09:30 Flexeril - PO 5 mg DAILY KEVIN Administration Docusate Sodium 100 mg 12/05/17 14:00 12/08/17 13:44 Colace - PO 100 mg TID KEVIN Administration Fentanyl 50 mcg 12/05/17 11:03 Sublimaze Injection - IVPUSH [id number] PRN PAIN-PACU ORDER X 4 DOSES ONLY Heparin Sodium (Porcine) 5,000 unit 12/06/17 11:12 12/08/17 13:45 Heparin - SQ 5,000 unit TID KEVIN Administration Pantoprazole Sodium 40 mg 12/06/17 22:00 12/08/17 09:32 Protonix Iv IVPUSH 40 mg BID KEVIN Administration Polyethylene Glycol 17 gm 12/06/17 22:00 12/08/17 09:31 Miralax (For Daily Use) - PO 17 gm BID KEVIN Administration Promethazine HCl 12.5 mg 12/05/17 11:03 Phenergan Injection - IVPB Q6H PRN NAUSEA AND/OR VOMITING Senna 2 tab 12/05/17 22:00 12/07/17 21:55 Senna - PO 2 tab HS KEVIN Administration Tramadol HCl 50 mg 12/07/17 06:00 12/08/17 17:25 Ultram - PO 50 mg Q6HPO KEVIN Administration ASSESSMENT/PLAN: 1) Removal of spinal cord stimulator w/ T6, T7 left sided pedicle osteotomies; T4-T8 posterior decompression; T6-T7 discectomy; T4-T9 PISF --Dr. Anthony on board: --Need to discuss about wound care long-term plans --Dressing to be changed today --Pt not had a bowel movement yet --Continue Miralax, Senna, and Colace --Adding Lactulose 30 once PO --Adding SSE once --Pt not requiring intense pain medication --Switch to Ultram 50mg q6h PO --Incentive spirometer q1h --PT to continue --Zofran 4mg IVP q4h PRN for nausea if needed FEN: None Electrolyte abnormalities - None today Nutrition: Soft diet PPX: DVT - SCDs; holding a/p due to recent surgery Dispo: D/C planning to rehab if able Case to be discussed with Dr. Bhavna Espitia, DO - IM PGY-1 Visit type - Emergency Visit Emergency Visit: No - New Patient This patient is new to me today: No - Critical Care Critical Care patient: No
[2017-12-08] MEDS: SENNOSIDES 8.6MG TABLET (FP) PO SCH (23:06)
[2017-12-09] MEDS: traMADol HCL 50 MG TABLET PO SCH ×3 (05:16→16:34)
[2017-12-09] MEDS: DOCUSATE SODIUM 100 MG CAPSULE (FP) PO SCH ×2 (05:17→13:08)
[2017-12-09] MEDS: HEPARIN NA (PORCINE) 5,000 UNITS/ML 1ML VIAL SQ SCH ×2 (05:17→13:05)
[2017-12-09] MEDS ORDERED: oxyCODONE HCL 5 MG TABLET PO ONE (06:36)
[2017-12-09] MEDS ORDERED: PT OWN MED DRAWER 7, Y5N ONE (09:09)
[2017-12-09] MEDS: CYCLOBENZAPRINE HCL 10 MG TABLET (FP) PO SCH (09:18)
[2017-12-09] MEDS: POLYETHYLENE GLYCOL 3350 119 GM BTL PO SCH (09:19)
[2017-12-09] MEDS: PANTOPRAZOLE SODIUM 40 MG VIAL IVPUSH SCH (09:19)
[2017-12-09 14:45] VITALS: BP 115/78; PULSE 70; TEMP 98.5
--- NOTE | 2017-12-09 17:21 | PN ---
Teaching Attending Note Name of Resident: Reilly Espitia ATTENDING PHYSICIAN STATEMENT I saw and evaluated the patient. I reviewed the resident's note and discussed the case with the resident. I agree with the resident's findings and plan as documented. SUBJECTIVE: No fever or chills . No abd p ain , no CP . able to ambulate with walker OBJECTIVE: NAD Cv: RRR Lungs: CTAB MS: back with mid line surgical dressing.NO TTP over L lateral and anterior ribs today Neuro: strength 5/5 in lower extremities proximally and distally. Sensation to light touch NL. reflexes 2+ knee jerk ASSESSMENT AND PLAN: 52 y/o lady with no significant PMH who presented with back pain now s/p spine sx 1- S/P Removal of spinal cord stimulator. T6, T7 left sided pedicle osteotomies. T4-T8 posterior decompression. T6-T7 discectomy, and T4-T9 PISF: - bowel regimen -cont po pain meds with tramadol after dc - dressing changed today by RN and resident . will be changed every [address] Alberto verbal Recs 2- L sided MS chest pain: resolved dispo : DC to rehab today . f/u with Dr. Anthony and Dr. Pike
--- NOTE | 2017-12-09 22:13 | DS ---
Physical Exam: SUBJECTIVE: Patient seen and examined OBJECTIVE: Vital Signs Period Temp Pulse Resp BP Sys/Watters Pulse Ox Last 24 Hr 97.3 F-98.5 F 66-78 16-20 115-149/78-94 98 PHYSICAL EXAM GENERAL: The patient is awake, alert, and fully oriented, in no acute distress. HEAD: Normal with no signs of trauma. EYES: PERRL, extraocular movements intact, sclera anicteric, conjunctiva clear. ENT: Ears normal, nares patent, oropharynx clear without exudates, moist mucous membranes. NECK: Trachea midline, full range of motion, supple. LUNGS: Breath sounds equal, clear to auscultation bilaterally, no wheezes, no crackles, no accessory muscle use. HEART: Regular rate and rhythm, S1, S2 without murmur, rub or gallop. ABDOMEN: Soft, nontender, nondistended, normoactive bowel sounds, no guarding, no rebound, no hepatosplenomegaly, no masses. EXTREMITIES: 2+ pulses, warm, well-perfused, no edema. NEUROLOGICAL: Cranial nerves II through XII grossly intact. Normal speech, gait not observed. PSYCH: Normal mood, normal affect. SKIN: Warm, dry, normal turgor, no rashes or lesions noted. LABS HOSPITAL COURSE: Date of Admission:12/01/17 Date of Discharge: 12/09/17 Discharge Summary Reason For Visit: PAIN IN THORACIC SPINE Condition: Stable - Instructions Diet, Activity, Other Instructions: You were seen here for your spine surgery by Dr. Anthony. He removed your spinal stimulator during your surgery as well. MEDICATIONS: In order to help with the pain, you will be given: Tramadol 50mg to take every 6 hours NEEDED for pain 6-10 You will also be given a constipation regiment to help with bowel movements. You were prescribed a rolling walker to help you walk while you recover from your surgery. This will already be arranged to have delivered to your house. Per Dr. Anthony's recommendations, you will need to change the dressing with a dry sterile dressing every 2 days. Do not submerge your back in water as this can lead to infection. You can perform regular activities as tolerated. Activity as tolerated, no lifting heavier than 10 lbs , Diet as tolerated FOLLOW-UPs: You should follow-up with Dr. Anthony in his office within 2 weeks to evaluate how well you are healing. if you don't have a PCP please folow with Dr. Pike Referrals: Vikram Pike MD [Staff Physician] - 2 Weeks Micheal Anthony MD [Staff Physician] - 2 Weeks Disposition: SNF FACILITY - Home Medications Comprehensive Discharge Medication List: Ambulatory Orders Walker [Ultra-Light Rollator] 1 each MC DAILY #1 each 12/05/17 Docusate Sodium [Colace -] 100 mg PO TID capsule 12/09/17 Polyethylene Glycol 3350 [Miralax 119 gm Btl -] 17 gm PO BID bottle 12/09/17 Sennosides [Senna -] 2 tab PO HS tablet 12/09/17 Tramadol HCl 50 mg PO Q6H PRN #30 tablet MDD 300 12/09/17
== END 2017-12-09 17:32 | DRG 304 ==
LOC: JSAMEDAYSX 08:25 → UNDOADMIN 08:25 → EDSTATUS 10:45 → JSAMEDAYSX 12-01 06:03 → JICU 12-01 16:35 → J8W 12-05 10:58
PROVIDERS: ADMIT Orthopaedic Surgery Orthopaedic Surgery of the Spine; ATTEND Internal Medicine
PROC: 0JPT0MZ Removal of Stimulator Generator from Trunk Subcutaneous Tissue and Fascia, Open Approach (ICD-10-PCS; 2017-12-01)
PROC: 0RT90ZZ Resection of Thoracic Vertebral Disc, Open Approach (ICD-10-PCS; 2017-12-01)
PROC: XRG New Technology, Joints, Fusion (ICD-10-PCS; 2017-12-01)
PROC: 0RT90ZZ Resection of Thoracic Vertebral Disc, Open Approach (ICD-10-PCS; 2017-12-01)
PROC: 30233N1 Transfusion of Nonautologous Red Blood Cells into Peripheral Vein, Percutaneous Approach (ICD-10-PCS; 2017-12-01)
PROC: 00PU0MZ Removal of Neurostimulator Lead from Spinal Canal, Open Approach (ICD-10-PCS; principal; 2017-12-01 08:00)
DX: M51.04 Intervertebral disc disorders with myelopathy, thoracic region (principal); D72.829 Elevated white blood cell count, unspecified; E80.6 Other disorders of bilirubin metabolism; E83.39 Other disorders of phosphorus metabolism; R07.89 Other chest pain; E87.6 Hypokalemia
CPT/HCPCS: 36415; 71045-TC-FY; 71046-TC-FY; 71111-TC-FY; 76000-TC-FY; 80048; 80053; 82248; 83735; 84100; 84132; 84703; 85025; 85027; 86850; 86891; 86900; 86901; 86922; 88304-TC; 93005; 93010; 94760; 97116-GP; 97161-GP; J0131; J1644; P9038; P9058

== ENCOUNTER 2020-05-29 05:22 | Inpatient (IN) | payer OTHER ==
[2020-05-26 15:10] VITALS: BMI 28.3
[~2020-05-29 05:22] MED LIST: VANCOMYCIN 1,000 MG VIAL (RESTRICTED TO ID ONLY) IVPB ONE; ceFAZolin SODIUM 1 GM VIAL IVPB ONE
[2020-05-29] MEDS ORDERED: THROMBIN (BOVINE) 20,000 UNIT VIAL TP ONE (14:43)
[2020-05-29] MEDS ORDERED: ceFAZolin SODIUM 1 GM VIAL IVPB ONE (14:50)
[2020-05-29] MEDS ORDERED: HEPARIN NA (PORCINE) 5,000 UNITS/ML 1ML VIAL ONE (14:54)
[2020-05-29] MEDS ORDERED: PROPOFOL 20 ML ONE ×11 (14:54→15:05)
[2020-05-29] MEDS ORDERED: fentaNYL CITRATE 250 MCG/5 ML VIAL ONE (14:54)
[2020-05-29] MEDS ORDERED: MIDAZOLAM HCL 2 MG/2 ML SINGLE DOSE VIAL ONE (14:55)
[2020-05-29] MEDS ORDERED: VANCOMYCIN 1,000 MG VIAL (RESTRICTED TO ID ONLY) ONE (14:56)
[2020-05-29] MEDS ORDERED: ONDANSETRON 4 MG/2 ML VIAL ONE (14:56)
[2020-05-29] MEDS ORDERED: DEXAMETHASONE SOD PHOSPHATE 4 MG/1 ML VIAL ONE (14:56)
[2020-05-29] MEDS ORDERED: LIDOCAINE HCL/PF 2% SDV 5ML VIAL ONE (14:56)
[2020-05-29] MEDS ORDERED: SUCCINYLCHOLINE CHLORIDE 200 MG/10 ML SYRINGE ONE (15:18)
[2020-05-29] MEDS ORDERED: ceFAZolin SODIUM 1 GM VIAL ONE ×2 (15:30→21:19)
[2020-05-29] MEDS ORDERED: TRANEXAMIC ACID 1000 MG/10 ML VIAL ONE (15:30)
[2020-05-29] MEDS ORDERED: EPHEDRINE SULFATE/0.9% NACL/PF 50 MG/10 ML SYRINGE NR ONE (15:33)
[2020-05-29] MEDS ORDERED: VANCOMYCIN 1,000 MG VIAL (RESTRICTED TO ID ONLY) IVPB ONE (15:40)
[2020-05-29] MEDS ORDERED: THROMBIN (BOVINE) 5,000 UNIT VIAL TP ONE (16:08)
[2020-05-29] MEDS ORDERED: ROCURONIUM BROMIDE 50 MG/5 ML SYRINGE ONE (16:18)
[2020-05-29] MEDS ORDERED: BUPIVACAINE LIPOSOME/PF (EXPAREL) 266 MG/20 ML VIAL ONE (16:29)
[2020-05-29] MEDS ORDERED: ONDANSETRON 4 MG/2 ML VIAL IVPUSH PRN ×2 (16:39→17:43)
[2020-05-29] MEDS ORDERED: LACTATED RINGERS SOLUTION 1,000 ML IV SCH (16:45)
[2020-05-29] MEDS ORDERED: NEOSTIGMINE METHYLSULFATE 0.5 MG/1 ML - 10 ML MDV ONE (16:53)
[2020-05-29] MEDS ORDERED: BUPIVACAINE HCL/PF 0.5% (5 MG/ML) 30 ML VIAL IJ ONE (16:53)
[2020-05-29] MEDS ORDERED: GLYCOPYRROLATE 0.2 MG/1 ML VIAL ONE (16:53)
[2020-05-29] MEDS ORDERED: BUPIVACAINE LIPOSOME/PF (EXPAREL) 266 MG/20 ML VIAL NR ONE (16:53)
[2020-05-29] MEDS: LACTATED RINGERS SOLUTION 500 ML IV SCH (17:55)
[2020-05-29] MEDS ORDERED: ACETAMINOPHEN INJECTION 100 ML IVPB ONE (18:27)
[2020-05-29] MEDS ORDERED: HYDROmorphone *PCA* 10MG/50ML DISP.SYRIN ONE (18:27)
[2020-05-29] MEDS: ACETAMINOPHEN 1000 MG/100 ML VIAL (NON FORMULARY) IVPB SCH (18:30)
[2020-05-29] MEDS: HYDROmorphone *PCA* 10MG/50ML DISP.SYRIN PCA SCH (18:35)
[2020-05-29] MEDS: LACTATED RINGERS SOLUTION 1,000 ML/1,000 ML INFUS.BAG IV SCH (22:41)
[2020-05-29] MEDS: DOCUSATE SODIUM 100 MG CAPSULE (FP) PO SCH (23:37)
[2020-05-30] MEDS ORDERED: CEFAZOLIN 1 GM/D5W 1 GM/50 ML BAG IVPB SCH (00:01)
[2020-05-30] MEDS: CEFAZOLIN 1 GM in DEXTROSE 5%-WATER - 1 GM/50 ML IVPB IVPB SCH ×2 (00:32→11:23)
[2020-05-30] MEDS: ACETAMINOPHEN 1000 MG/100 ML VIAL (NON FORMULARY) IVPB SCH ×3 (00:33→15:20)
[2020-05-30] MEDS: DOCUSATE SODIUM 100 MG CAPSULE (FP) PO SCH ×3 (05:30→21:47)
[2020-05-30 08:21] LABS: HEMATOCRIT 38.8 % (32.4-45.2); HEMOGLOBIN 12.9 GM/dL (10.7-15.3); MCH 29.1 pg (25.7-33.7); MCHC 33.2 g/dl (32.0-36.0); MEAN CELL VOLUME 87.8 fl (80-96); MEAN PLT VOLUME 8.3 fl (7.5-11.1); PLATELET COUNT 245 K/MM3 (134-434); RBC 4.42 M/mm3 (3.60-5.2); RDW 14.2 % (11.6-15.6); WHITE BLOOD COUNT 12.7 K/mm3 (4.0-10.0)
[2020-05-30 08:44] LABS: POTASSIUM 4.2 mmol/L (3.5-5.1)
[2020-05-30 08:53] LABS: CALCIUM 9.3 mg/dL (8.5-10.1)
[2020-05-30 08:55] LABS: BLOOD UREA NITROGEN 14.1 mg/dL (7-18)
[2020-05-30 08:57] LABS: CREATININE 0.8 mg/dL (0.55-1.3)
[2020-05-30] MEDS ORDERED: oxyCODONE HCL 5 MG TABLET PO PRN (10:44)
[2020-05-30] MEDS ORDERED: morphine CARPU-JECT 2 MG/1 ML DISP.SYRIN IVPUSH PRN (10:45)
[2020-05-30] MEDS ORDERED: DEXTROSE 5%-WATER - 50 ML IVPB ONE (11:07)
[2020-05-30] MEDS ORDERED: ceFAZolin SODIUM 1 GM VIAL ONE (11:07)
[2020-05-30] MEDS: CYCLOBENZAPRINE HCL 10 MG TABLET (FP) PO SCH (11:20)
[2020-05-30] MEDS: HYDROCHLOROTHIAZIDE 25 MG TABLET (FP) PO SCH (11:20)
[2020-05-30] MEDS: oxyCODONE HCL 5 MG TABLET PO PRN ×3 (11:20→21:47)
[2020-05-30] MEDS: LACTATED RINGERS SOLUTION 1,000 ML/1,000 ML INFUS.BAG IV SCH (17:46)
[2020-05-30] MEDS: HYDROmorphone *PCA* 10MG/50ML DISP.SYRIN PCA SCH (20:25)
[2020-05-30] MEDS: LACTATED RINGERS SOLUTION 500 ML IV SCH (20:26)
[2020-05-30 21:58] VITALS: PULSE 77
[2020-05-30] MEDS ORDERED: PCA PUMP NR ONE (23:50)
[2020-05-30] MEDS: MORPHINE SULFATE 2 MG/ML VIAL IVPUSH PRN (23:54)
[2020-05-30] MEDS ORDERED: ACETAMINOPHEN 325 MG TABLET (FP) PO PRN (23:55)
[2020-05-31] MEDS: DOCUSATE SODIUM 100 MG CAPSULE (FP) PO SCH ×2 (05:52→13:37)
[2020-05-31 07:28] VITALS: BP 131/67; TEMP 100.5
[2020-05-31] MEDS: HYDROCHLOROTHIAZIDE 25 MG TABLET (FP) PO SCH (09:55)
[2020-05-31] MEDS: CYCLOBENZAPRINE HCL 10 MG TABLET (FP) PO SCH (09:55)
[2020-05-31] MEDS: MORPHINE SULFATE 2 MG/ML VIAL IVPUSH PRN (10:02)
== END 2020-05-31 14:55 | disposition home or self-care (01) | DRG 458 ==
LOC: J2C 05:22 → J8W 22:40
PROVIDERS: ADMIT Orthopaedic Surgery Orthopaedic Surgery of the Spine; ATTEND Orthopaedic Surgery Orthopaedic Surgery of the Spine
PROC: 0RG8071 Fusion of 8 or more Thoracic Vertebral Joints with Autologous Tissue Substitute, Posterior Approach, Posterior Column, Open Approach (ICD-10-PCS; 2020-05-29)
PROC: 07DR3ZZ Extraction of Iliac Bone Marrow, Percutaneous Approach (ICD-10-PCS; 2020-05-29)
PROC: 0RP60AZ Removal of Interbody Fusion Device from Thoracic Vertebral Joint, Open Approach (ICD-10-PCS; principal; 2020-05-29 11:00)
DX: T84.89XA Other specified complication of internal orthopedic prosthetic devices, implants and grafts, initial encounter (principal); M51.24 Other intervertebral disc displacement, thoracic region; M71.58 Other bursitis, not elsewhere classified, other site; Y83.8 Other surgical procedures as the cause of abnormal reaction of the patient, or of later complication, without mention of misadventure at the time of the procedure
CPT/HCPCS: 36415; 80048; 85027; 86850; 86900; 86901; 88300-TC; 94760; 97116-GP; 97162-GP; J0131; J1644

== ENCOUNTER 2021-04-30 04:20 | Inpatient (IN) | payer OTHER ==
[~2021-04-30 04:20] MED LIST changes: +BUPIVACAINE HCL/PF 0.5% (5 MG/ML) 30 ML VIAL IJ ONE; +BUPIVACAINE LIPOSOME/PF (EXPAREL) 266 MG/20 ML VIAL NR ONE; +THROMBIN (BOVINE) 5,000 UNIT VIAL TP ONE
[2021-04-30] MEDS ORDERED: GENTAMICIN SO4 80 MG/2 ML VIAL ONE (12:24)
[2021-04-30] MEDS ORDERED: BUPIVACAINE LIPOSOME/PF (EXPAREL) 266 MG/20 ML VIAL ONE (12:24)
[2021-04-30] MEDS ORDERED: THROMBIN (BOVINE) 20,000 UNIT VIAL TP ONE (12:25)
[2021-04-30] MEDS ORDERED: fentaNYL CITRATE 250 MCG/5 ML VIAL ONE (12:39)
[2021-04-30] MEDS ORDERED: MIDAZOLAM HCL 2 MG/2 ML SINGLE DOSE VIAL ONE ×3 (12:39→21:12)
[2021-04-30] MEDS ORDERED: ceFAZolin SODIUM 1 GM VIAL IVPB ONE (13:44)
[2021-04-30] MEDS ORDERED: VANCOMYCIN 1,000 MG VIAL (RESTRICTED TO ID ONLY) IVPB ONE (13:44)
[2021-04-30] MEDS ORDERED: HYDROmorphone HCl 2 MG/ML VIAL ONE (14:39)
[2021-04-30] MEDS ORDERED: ROCURONIUM BROMIDE 50 MG/5 ML SYRINGE ONE ×2 (14:42→15:17)
[2021-04-30] MEDS ORDERED: THROMBIN (BOVINE) 5,000 UNIT VIAL TP ONE (15:02)
[2021-04-30] MEDS ORDERED: CALCIUM CHLORIDE 1 GM/10 ML *DISP.SYRIN ONE (16:00)
[2021-04-30] MEDS ORDERED: HYDROmorphone HCl 2 MG/ML VIAL SQ PRN (17:18)
[2021-04-30] MEDS ORDERED: oxyCODONE HCL 5 MG TABLET PO PRN (17:18)
[2021-04-30] MEDS ORDERED: PHENYLEPHRINE HCL 10 MG/1 ML SINGLE DOSE VIAL ONE (18:39)
[2021-04-30] MEDS ORDERED: BUPIVACAINE HCL/PF 0.5% (5 MG/ML) 30 ML VIAL IJ ONE (18:54)
[2021-04-30] MEDS ORDERED: BUPIVACAINE LIPOSOME/PF (EXPAREL) 266 MG/20 ML VIAL NR ONE (18:54)
[2021-04-30] MEDS ORDERED: NEOSTIGMINE METHYLSULFATE 0.5 MG/1 ML - 10 ML MDV ONE (19:05)
[2021-04-30] MEDS ORDERED: GLYCOPYRROLATE 0.2 MG/1 ML VIAL ONE (19:05)
[2021-04-30] MEDS ORDERED: ePHEDrine SULFATE 50 MG/1 ML AMPULE ONE (19:19)
[2021-04-30] MEDS: ACETAMINOPHEN 1000 MG/100 ML BAG IVPB PRN (20:00)
[2021-04-30 20:11] LABS: BASO % 0.8 % (0-2.0); HEMATOCRIT 36.9 % (32.4-45.2); LYMPH % 9.2 % (8-40); MCHC 35.2 g/dl (32.0-36.0); MEAN CELL VOLUME 85.5 fl (80-96); MEAN PLT VOLUME 7.6 fl (7.5-11.1); MONO % 5.3 % (3.8-10.2); NEUT % 84.7 % (42.8-82.8); PLATELET COUNT 247 10^3/uL (134-434); RBC 4.32 M/mm3 (3.60-5.2); RDW 14.4 % (11.6-15.6); WHITE BLOOD COUNT 15.2 K/mm3 (4.0-10.0)
[2021-04-30 20:19] LABS: INR 1.2 (0.83-1.09); PROTHROMBIN TIME (PATIENT) 13.5 SEC (9.7-13.0)
[2021-04-30 20:26] LABS: ALBUMIN 2.7 g/dl (3.4-5.0); CALCIUM 8.8 mg/dL (8.5-10.1)
[2021-04-30 20:30] LABS: CREATININE 0.8 mg/dL (0.55-1.3)
[2021-04-30 20:31] LABS: BILIRUBIN,TOTAL 1.8 mg/dL (0.2-1); TOT PROT 5.1 g/dl (6.4-8.2)
[2021-04-30] MEDS ORDERED: ACETAMINOPHEN INJECTION 100 ML IVPB ONE (20:31)
[2021-04-30] MEDS ORDERED: ONDANSETRON 4 MG/2 ML VIAL IVPUSH PRN (20:42)
[2021-04-30 21:17] LABS: ARTERIAL BLD GAS O2 SATURATION 99.2 % (95-98); ARTERIAL BLOOD GAS BASE EXCESS -2.9 mmol/L (-2-2); ARTERIAL BLOOD GAS PO2 168.1 mmHg (80-100); ARTERIAL BLOOD GAS pH 7.459 (7.350-7.450)
[2021-04-30 21:18] LABS: VENT MODE SIMV; VENT RATE 5
[2021-04-30] MEDS ORDERED: ceFAZolin SODIUM 1 GM VIAL ONE ×2 (22:18→22:20)
[2021-04-30] MEDS: ONDANSETRON 4 MG/2 ML VIAL IVPUSH PRN (22:39)
[2021-04-30] MEDS ORDERED: HYDROmorphone HCl 2 MG/ML VIAL IVPUSH PRN (22:44)
[2021-04-30] MEDS: HYDROmorphone HCl 2 MG/ML VIAL IVPUSH PRN (23:10)
[2021-04-30] MEDS ORDERED: SODIUM CHLORIDE 1,000 ML IV SCH ×2 (23:45→23:48)
[2021-04-30] MEDS ORDERED: guaiFENesin 200 MG/10 ML 10 ML UNIT-DOSE CUPS PO ONE (23:45)
[2021-05-01] MEDS: CEFAZOLIN 2 GM in DEXTROSE 5%-WATER - 100 ML IVPB SCH ×4 (00:16→20:18)
[2021-05-01] MEDS: LACTATED RINGERS SOLUTION 1,000 ML IV SCH ×2 (01:46→20:18)
[2021-05-01] MEDS: HYDROmorphone HCl 2 MG/ML VIAL IVPUSH PRN ×5 (03:20→20:17)
[2021-05-01] MEDS: ACETAMINOPHEN 1000 MG/100 ML BAG IVPB PRN ×2 (05:10→13:00)
[2021-05-01] MEDS: ONDANSETRON 4 MG/2 ML VIAL IVPUSH PRN ×3 (05:20→20:25)
[2021-05-01 06:47] LABS: HEMATOCRIT 28.7 % (32.4-45.2); HEMOGLOBIN 10.1 GM/dL (10.7-15.3); MCH 31.1 pg (25.7-33.7); MEAN CELL VOLUME 88.8 fl (80-96); MEAN PLT VOLUME 8.2 fl (7.5-11.1); PLATELET COUNT 135 10^3/uL (134-434); RBC 3.24 M/mm3 (3.60-5.2); RDW 14.7 % (11.6-15.6); WHITE BLOOD COUNT 11.5 K/mm3 (4.0-10.0)
[2021-05-01 07:05] LABS: BLOOD UREA NITROGEN 12.4 mg/dL (7-18)
[2021-05-01 07:08] LABS: CREATININE 0.6 mg/dL (0.55-1.3)
[2021-05-01 07:16] LABS: PHOSPHOROUS 2.3 mg/dL (2.5-4.9)
[2021-05-01] MEDS ORDERED: MAGNESIUM 2GM/50ML STERILE WATER IVPB IVPB ONE (09:15)
[2021-05-01] MEDS: MUPIROCIN 2% TOPICAL OINTMENT FOR DECOLONIZATION NS SCH ×2 (09:43→21:44)
[2021-05-01] MEDS ORDERED: SODIUM PHOSPHATE - 15 MM in SODIUM CHLORIDE 250 ML IVPB ONE (10:00)
[2021-05-01] MEDS ORDERED: PT OWN MED DRAWER 7, Y5N ONE ×3 (10:58→17:09)
[2021-05-01 14:18] LABS: BASO % 0.2 % (0-2.0); EOS % 0.1 % (0-4.5); HEMATOCRIT 24.5 % (32.4-45.2); HEMOGLOBIN 8.4 GM/dL (10.7-15.3); LYMPH % 7.1 % (8-40); MCH 30.6 pg (25.7-33.7); MCHC 34.4 g/dl (32.0-36.0); MEAN CELL VOLUME 88.9 fl (80-96); MEAN PLT VOLUME 7.9 fl (7.5-11.1); MONO % 8.9 % (3.8-10.2); NEUT % 83.7 % (42.8-82.8); PLATELET COUNT 108 10^3/uL (134-434); RBC 2.76 M/mm3 (3.60-5.2); RDW 14.8 % (11.6-15.6); WHITE BLOOD COUNT 8.8 K/mm3 (4.0-10.0)
[2021-05-01] MEDS: diazePAM CARPU-JECT 10 MG/2 ML DISP.SYRIN IVPUSH PRN (15:05)
[2021-05-01] MEDS ORDERED: KETOROLAC TROMETHAMINE 15 MG/ML VIAL IVPUSH ONE (16:41)
[2021-05-01 20:46] LABS: BASO % 0.2 % (0-2.0); EOS % 0.2 % (0-4.5); HEMOGLOBIN 11.4 GM/dL (10.7-15.3); LYMPH % 11.4 % (8-40); MCH 30.6 pg (25.7-33.7); MCHC 34.6 g/dl (32.0-36.0); MEAN CELL VOLUME 88.4 fl (80-96); MEAN PLT VOLUME 8.8 fl (7.5-11.1); MONO % 9.4 % (3.8-10.2); NEUT % 78.8 % (42.8-82.8); PLATELET COUNT 117 10^3/uL (134-434); RBC 3.73 M/mm3 (3.60-5.2); RDW 14.7 % (11.6-15.6); WHITE BLOOD COUNT 12.6 K/mm3 (4.0-10.0)
[2021-05-01] MEDS: CHLORHEXIDINE GLUCONATE 4% CLEANSER FOR DECOLONIZATION TP SCH (21:45)
[2021-05-01] MEDS: oxyCODONE HCL 5 MG TABLET PO PRN (23:01)
[2021-05-02] MEDS: HYDROmorphone HCl 2 MG/ML VIAL IVPUSH PRN ×4 (01:16→20:32)
[2021-05-02] MEDS: ONDANSETRON 4 MG/2 ML VIAL IVPUSH PRN ×4 (01:20→20:24)
[2021-05-02] MEDS: oxyCODONE HCL 5 MG TABLET PO PRN ×5 (03:24→22:23)
[2021-05-02 07:01] LABS: BASO % 0.2 % (0-2.0); EOS % 0.2 % (0-4.5); HEMATOCRIT 29.1 % (32.4-45.2); HEMOGLOBIN 10.2 GM/dL (10.7-15.3); LYMPH % 10.4 % (8-40); MCH 30.9 pg (25.7-33.7); MEAN CELL VOLUME 88.2 fl (80-96); MEAN PLT VOLUME 8.4 fl (7.5-11.1); MONO % 7.2 % (3.8-10.2); PLATELET COUNT 129 10^3/uL (134-434); RDW 14.8 % (11.6-15.6); WHITE BLOOD COUNT 10.2 K/mm3 (4.0-10.0)
[2021-05-02 07:23] LABS: CALCIUM 7.8 mg/dL (8.5-10.1)
[2021-05-02 07:24] LABS: ALBUMIN 2.4 g/dl (3.4-5.0); BLOOD UREA NITROGEN 11.9 mg/dL (7-18)
[2021-05-02 07:27] LABS: CREATININE 0.7 mg/dL (0.55-1.3)
[2021-05-02 07:29] LABS: BILIRUBIN,TOTAL 1.5 mg/dL (0.2-1); TOT PROT 4.9 g/dl (6.4-8.2)
[2021-05-02] MEDS: diazePAM CARPU-JECT 10 MG/2 ML DISP.SYRIN IVPUSH PRN (10:12)
[2021-05-02] MEDS: MUPIROCIN 2% TOPICAL OINTMENT FOR DECOLONIZATION NS SCH ×2 (10:19→22:28)
[2021-05-02] MEDS: LACTATED RINGERS SOLUTION 1,000 ML IV SCH ×3 (12:03→21:40)
[2021-05-02 12:27] LABS: EPI CELLS 4 /uL (0-25.1); HYALINE CASTS 2 /uL (0-3.1); PH,URINE 5.5 (5.0-8.0); URINE APPEARANCE CLEAR; URINE BACTERIA 3 /uL (0-1359); URINE BILIRUBIN NEGATIVE (NEGATIVE); URINE COLOR YELLOW; URINE GLUCOSE (UA) NEGATIVE (NEGATIVE); URINE KETONE 3+ (NEGATIVE); URINE LEUK ESTERASE NEGATIVE (NEGATIVE); URINE NITRITE NEGATIVE (NEGATIVE); URINE PROTEIN 1+ (NEGATIVE); URINE RBC 21 /uL (0-23.9); URINE UROBILINOGEN 0.2 mg/dL (0.2-1.0); URINE WBC 6 /uL (0-25.8)
[2021-05-02] MEDS ORDERED: KETOROLAC TROMETHAMINE 30 MG/1 ML VIAL IVPUSH ONE (14:18)
[2021-05-02] MEDS: CHLORHEXIDINE GLUCONATE 4% CLEANSER FOR DECOLONIZATION TP SCH (22:29)
[2021-05-03] MEDS: HYDROmorphone HCl 2 MG/ML VIAL IVPUSH PRN ×4 (01:22→14:27)
[2021-05-03] MEDS: oxyCODONE HCL 5 MG TABLET PO PRN ×4 (04:05→21:07)
[2021-05-03] MEDS: ONDANSETRON 4 MG/2 ML VIAL IVPUSH PRN ×3 (04:06→14:28)
[2021-05-03] MEDS: LACTATED RINGERS SOLUTION 1,000 ML IV SCH ×2 (05:05→10:38)
[2021-05-03 07:00] LABS: BASO % 0.2 % (0-2.0); EOS % 0.7 % (0-4.5); HEMATOCRIT 26.2 % (32.4-45.2); HEMOGLOBIN 9.3 GM/dL (10.7-15.3); LYMPH % 10.9 % (8-40); MCH 31.4 pg (25.7-33.7); MCHC 35.5 g/dl (32.0-36.0); MEAN CELL VOLUME 88.6 fl (80-96); MEAN PLT VOLUME 8.6 fl (7.5-11.1); MONO % 7.8 % (3.8-10.2); NEUT % 80.4 % (42.8-82.8); PLATELET COUNT 123 10^3/uL (134-434); RBC 2.95 M/mm3 (3.60-5.2); RDW 14.4 % (11.6-15.6)
[2021-05-03 07:26] LABS: ALBUMIN 1.9 g/dl (3.4-5.0); BLOOD UREA NITROGEN 9.6 mg/dL (7-18); MAGNESIUM 1.9 mg/dL (1.8-2.4)
[2021-05-03 07:29] LABS: CREATININE 0.5 mg/dL (0.55-1.3); PHOSPHOROUS 1.4 mg/dL (2.5-4.9)
[2021-05-03 07:31] LABS: TOT PROT 4.5 g/dl (6.4-8.2)
[2021-05-03] MEDS: MUPIROCIN 2% TOPICAL OINTMENT FOR DECOLONIZATION NS SCH ×2 (09:30→21:07)
[2021-05-03] MEDS ORDERED: SODIUM PHOSPHATE - 30 MM in SODIUM CHLORIDE 250 ML IVPB ONE (11:30)
[2021-05-03] MEDS ORDERED: SENNOSIDES 8.6MG TABLET (FP) PO PRN (20:13)
[2021-05-03] MEDS: POLYETHYLENE GLYCOL (HEALTHYLAX) 3350 17 GM PACKET PO SCH (21:07)
[2021-05-03] MEDS: CHLORHEXIDINE GLUCONATE 4% CLEANSER FOR DECOLONIZATION TP SCH (21:07)
[2021-05-04] MEDS: HYDROmorphone HCl 2 MG/ML VIAL IVPUSH PRN (06:35)
[2021-05-04 06:49] LABS: BASO % 0.7 % (0-2.0); EOS % 0.2 % (0-4.5); HEMOGLOBIN 9.7 GM/dL (10.7-15.3); LYMPH % 9.8 % (8-40); MCH 30.8 pg (25.7-33.7); MCHC 35.8 g/dl (32.0-36.0); MEAN CELL VOLUME 86.1 fl (80-96); MEAN PLT VOLUME 8.1 fl (7.5-11.1); MONO % 7.8 % (3.8-10.2); NEUT % 81.5 % (42.8-82.8); PLATELET COUNT 160 10^3/uL (134-434); RBC 3.14 M/mm3 (3.60-5.2); RDW 13.9 % (11.6-15.6); WHITE BLOOD COUNT 8.9 K/mm3 (4.0-10.0)
[2021-05-04 07:14] LABS: ALBUMIN 1.9 g/dl (3.4-5.0); MAGNESIUM 2.1 mg/dL (1.8-2.4)
[2021-05-04 07:17] LABS: CREATININE 0.4 mg/dL (0.55-1.3); PHOSPHOROUS 2.1 mg/dL (2.5-4.9)
[2021-05-04 07:18] LABS: BILIRUBIN,TOTAL 0.9 mg/dL (0.2-1)
[2021-05-04] MEDS ORDERED: SODIUM PHOSPHATE - 20 MM in SODIUM CHLORIDE 250 ML IVPB ONE (07:30)
[2021-05-04] MEDS ORDERED: SODIUM PHOSPHATE - 15 MM in SODIUM CHLORIDE 250 ML IVPB ONE (07:51)
[2021-05-04] MEDS: oxyCODONE HCL 5 MG TABLET PO PRN ×2 (09:32→20:55)
[2021-05-04] MEDS: POLYETHYLENE GLYCOL (HEALTHYLAX) 3350 17 GM PACKET PO SCH (09:32)
[2021-05-04] MEDS: MUPIROCIN 2% TOPICAL OINTMENT FOR DECOLONIZATION NS SCH ×2 (17:47→23:02)
[2021-05-04] MEDS: CHLORHEXIDINE GLUCONATE 4% CLEANSER FOR DECOLONIZATION TP SCH (23:03)
[2021-05-04] MEDS: LACTATED RINGERS SOLUTION 1,000 ML IV SCH (23:03)
[2021-05-04] MEDS ORDERED: SENNOSIDES 8.6MG TABLET (FP) PO PRN (23:08)
[2021-05-04] MEDS ORDERED: oxyCODONE HCL 5 MG TABLET PO PRN (23:08)
[2021-05-04] MEDS ORDERED: ONDANSETRON 4 MG/2 ML VIAL IVPUSH PRN (23:08)
[2021-05-05] MEDS: oxyCODONE HCL 5 MG TABLET PO PRN ×5 (01:23→18:04)
[2021-05-05] MEDS: ACETAMINOPHEN 325 MG TABLET (FP) PO PRN ×4 (05:08→18:05)
[2021-05-05] MEDS: POLYETHYLENE GLYCOL (HEALTHYLAX) 3350 17 GM PACKET PO SCH (09:43)
[2021-05-05 09:56] LABS: BASO % 0.4 % (0-2.0); EOS % 0.7 % (0-4.5); HEMATOCRIT 28.5 % (32.4-45.2); HEMOGLOBIN 9.9 GM/dL (10.7-15.3); LYMPH % 11.9 % (8-40); MCH 30.6 pg (25.7-33.7); MCHC 34.6 g/dl (32.0-36.0); MEAN CELL VOLUME 88.3 fl (80-96); MEAN PLT VOLUME 8.4 fl (7.5-11.1); MONO % 9.8 % (3.8-10.2); NEUT % 77.2 % (42.8-82.8); PLATELET COUNT 192 10^3/uL (134-434); RBC 3.23 M/mm3 (3.60-5.2); RDW 13.9 % (11.6-15.6); WHITE BLOOD COUNT 8.9 K/mm3 (4.0-10.0)
[2021-05-05] MEDS ORDERED: MUPIROCIN 2% TOPICAL OINTMENT FOR DECOLONIZATION NS SCH (10:00)
[2021-05-05 10:21] LABS: BLOOD UREA NITROGEN 10.5 mg/dL (7-18)
[2021-05-05 10:22] LABS: MAGNESIUM 2.1 mg/dL (1.8-2.4)
[2021-05-05 10:24] LABS: CREATININE 0.6 mg/dL (0.55-1.3); PHOSPHOROUS 2.3 mg/dL (2.5-4.9)
[2021-05-05 10:26] LABS: BILIRUBIN,TOTAL 1.2 mg/dL (0.2-1); TOT PROT 5.3 g/dl (6.4-8.2)
[2021-05-05] MEDS ORDERED: NAPH,MB-DB/K PH,MBDB POWDER PACKET PO ONE (14:11)
[2021-05-05] MEDS ORDERED: DOCUSATE SODIUM 100 MG CAPSULE (FP) PO PRN (15:19)
[2021-05-05] MEDS ORDERED: CHLORHEXIDINE GLUCONATE 4% CLEANSER FOR DECOLONIZATION TP SCH (22:00)
[2021-05-05] MEDS: GABAPENTIN 100 MG CAPSULE PO SCH (22:19)
[2021-05-05] MEDS: morphine SULFATE 4 MG/ML VIAL IVPUSH PRN (22:22)
[2021-05-06] MEDS: morphine SULFATE 4 MG/ML VIAL IVPUSH PRN ×3 (04:44→18:31)
[2021-05-06] MEDS: GABAPENTIN 100 MG CAPSULE PO SCH ×3 (06:19→21:07)
[2021-05-06 08:59] LABS: BASO % 0.5 % (0-2.0); EOS % 0.7 % (0-4.5); HEMATOCRIT 26.7 % (32.4-45.2); HEMOGLOBIN 9.5 GM/dL (10.7-15.3); MCH 30.8 pg (25.7-33.7); MCHC 35.5 g/dl (32.0-36.0); MEAN CELL VOLUME 86.7 fl (80-96); MEAN PLT VOLUME 8.1 fl (7.5-11.1); MONO % 6.9 % (3.8-10.2); NEUT % 84.9 % (42.8-82.8); PLATELET COUNT 199 10^3/uL (134-434); RBC 3.08 M/mm3 (3.60-5.2); RDW 13.9 % (11.6-15.6); WHITE BLOOD COUNT 10.6 K/mm3 (4.0-10.0)
[2021-05-06 09:18] LABS: BLOOD UREA NITROGEN 10.2 mg/dL (7-18); CALCIUM 7.7 mg/dL (8.5-10.1)
[2021-05-06] MEDS: POLYETHYLENE GLYCOL (HEALTHYLAX) 3350 17 GM PACKET PO SCH ×2 (09:18→09:32)
[2021-05-06 09:19] LABS: ALBUMIN 1.8 g/dl (3.4-5.0)
[2021-05-06] MEDS: oxyCODONE HCL 5 MG TABLET PO PRN ×2 (09:20→21:08)
[2021-05-06 09:21] LABS: CREATININE 0.5 mg/dL (0.55-1.3)
[2021-05-06 09:23] LABS: BILIRUBIN,TOTAL 0.9 mg/dL (0.2-1); TOT PROT 5.3 g/dl (6.4-8.2)
[2021-05-06] MEDS ORDERED: KETOROLAC TROMETHAMINE 30 MG/1 ML VIAL IVPUSH ONE (12:11)
[2021-05-06 14:00] VITALS: BMI 34.0
[2021-05-07] MEDS: morphine SULFATE 4 MG/ML VIAL IVPUSH PRN ×2 (01:13→07:36)
[2021-05-07] MEDS: oxyCODONE HCL 5 MG TABLET PO PRN ×4 (05:18→20:24)
[2021-05-07] MEDS: GABAPENTIN 100 MG CAPSULE PO SCH ×3 (05:18→23:09)
[2021-05-07] MEDS: POLYETHYLENE GLYCOL (HEALTHYLAX) 3350 17 GM PACKET PO SCH (09:29)
[2021-05-07] MEDS ORDERED: SODIUM PHOSPHATE - 30 MM in SODIUM CHLORIDE 500 ML IVPB ONE (12:00)
[2021-05-07] MEDS: HYDROmorphone HCl 2 MG/ML VIAL SQ PRN ×2 (16:19→23:06)
[2021-05-08] MEDS: HYDROmorphone HCl 2 MG/ML VIAL SQ PRN ×2 (05:40→11:49)
[2021-05-08] MEDS: GABAPENTIN 100 MG CAPSULE PO SCH ×3 (05:47→22:33)
[2021-05-08] MEDS: POLYETHYLENE GLYCOL (HEALTHYLAX) 3350 17 GM PACKET PO SCH (09:01)
[2021-05-08 09:47] LABS: HEMOGLOBIN 9.8 GM/dL (10.7-15.3); MCH 30.5 pg (25.7-33.7); MEAN CELL VOLUME 87.1 fl (80-96); PLATELET COUNT 345 10^3/uL (134-434); RBC 3.22 M/mm3 (3.60-5.2); WHITE BLOOD COUNT 8.3 K/mm3 (4.0-10.0)
[2021-05-08 10:28] LABS: ALBUMIN 2.1 g/dl (3.4-5.0); CALCIUM 8.2 mg/dL (8.5-10.1)
[2021-05-08 10:29] LABS: BLOOD UREA NITROGEN 12.9 mg/dL (7-18)
[2021-05-08 10:32] LABS: CREATININE 0.4 mg/dL (0.55-1.3)
[2021-05-08 10:33] LABS: BILIRUBIN,TOTAL 0.9 mg/dL (0.2-1)
[2021-05-08 10:34] LABS: TOT PROT 5.5 g/dl (6.4-8.2)
[2021-05-08] MEDS ORDERED: BUPIVACAINE LIPOSOME/PF (EXPAREL) 266 MG/20 ML VIAL ONE (13:51)
[2021-05-08] MEDS ORDERED: THROMBIN (BOVINE) 20,000 UNIT VIAL TP ONE (13:51)
[2021-05-08] MEDS ORDERED: fentaNYL CITRATE 250 MCG/5 ML VIAL ONE (13:51)
[2021-05-08] MEDS ORDERED: SUCCINYLCHOLINE CHLORIDE 200 MG/10 ML SYRINGE ONE (13:51)
[2021-05-08] MEDS ORDERED: ROCURONIUM BROMIDE 50 MG/5 ML SYRINGE ONE (13:51)
[2021-05-08] MEDS ORDERED: BUPIVACAINE HCL/PF 0.5% (5MG/ML) 10 ML VIAL ONE (13:51)
[2021-05-08] MEDS ORDERED: GENTAMICIN SO4 80 MG/2 ML VIAL ONE (13:51)
[2021-05-08] MEDS ORDERED: MIDAZOLAM HCL 2 MG/2 ML SINGLE DOSE VIAL ONE (13:51)
[2021-05-08] MEDS ORDERED: PROPOFOL 20 ML ONE (13:51)
[2021-05-08] MEDS ORDERED: ceFAZolin 2 GRAM PREMIX BAG IVPB ONE ×2 (14:07→15:00)
[2021-05-08] MEDS ORDERED: VANCOMYCIN 1 GM in D5W (PRE-DOCKED) 1,000 MG/250 ML IVPB ONE ×2 (14:08→15:01)
[2021-05-08] MEDS ORDERED: THROMBIN (BOVINE) 5,000 UNIT VIAL TP ONE ×2 (14:08→15:30)
[2021-05-08] MEDS ORDERED: HYDROGEN PEROXIDE 473 ML PO ONE ×2 (14:09→15:31)
[2021-05-08] MEDS ORDERED: GENTAMICIN SO4 80 MG/2 ML VIAL IVPB ONE ×2 (14:09→15:30)
[2021-05-08] MEDS ORDERED: BUPIVACAINE LIPOSOME/PF (EXPAREL) 266 MG/20 ML VIAL NR ONE ×2 (14:10→16:58)
[2021-05-08] MEDS ORDERED: BUPIVACAINE HCL/PF 0.5% (5 MG/ML) 30 ML VIAL IJ ONE (14:10)
[2021-05-08] MEDS ORDERED: ONDANSETRON 4 MG/2 ML VIAL IVPUSH PRN ×2 (15:44→17:53)
[2021-05-08] MEDS ORDERED: LACTATED RINGERS SOLUTION 1,000 ML IV SCH (15:45)
[2021-05-08] MEDS ORDERED: HYDROmorphone HCl 2 MG/ML VIAL IVPUSH SCH (15:45)
[2021-05-08] MEDS ORDERED: NEOSTIGMINE METHYLSULFATE 0.5 MG/1 ML - 10 ML MDV ONE (16:40)
[2021-05-08] MEDS ORDERED: ONDANSETRON 4 MG/2 ML VIAL ONE (17:16)
[2021-05-08] MEDS ORDERED: DEXAMETHASONE SOD PHOSPHATE 4 MG/1 ML VIAL ONE (17:16)
[2021-05-08] MEDS ORDERED: GLYCOPYRROLATE 0.2 MG/1 ML VIAL ONE (17:16)
[2021-05-08] MEDS ORDERED: ceFAZolin SODIUM 1 GM VIAL ONE ×2 (17:16→18:16)
[2021-05-08] MEDS ORDERED: TRANEXAMIC ACID 1000 MG/10 ML VIAL ONE (17:16)
[2021-05-08] MEDS ORDERED: VANCOMYCIN 1,000 MG VIAL (RESTRICTED TO ID ONLY) ONE (17:16)
[2021-05-08] MEDS ORDERED: HYDROmorphone HCl 2 MG/ML VIAL ONE (17:38)
[2021-05-08] MEDS: HYDROmorphone HCl 2 MG/ML VIAL IVPUSH ONE ×2 (17:45→20:37)
[2021-05-08] MEDS ORDERED: HYDROmorphone HCl 2 MG/ML VIAL SQ PRN (17:53)
[2021-05-08] MEDS ORDERED: oxyCODONE HCL 5 MG TABLET PO PRN (17:53)
[2021-05-08] MEDS ORDERED: ACETAMINOPHEN 325 MG TABLET (FP) PO PRN (17:53)
[2021-05-08 18:06] LABS: HEMATOCRIT 27.5 % (32.4-45.2); HEMOGLOBIN 9.8 GM/dL (10.7-15.3); MCH 30.2 pg (25.7-33.7); MCHC 35.6 g/dl (32.0-36.0); MEAN CELL VOLUME 84.9 fl (80-96); MEAN PLT VOLUME 7.4 fl (7.5-11.1); PLATELET COUNT 369 10^3/uL (134-434); RBC 3.24 M/mm3 (3.60-5.2); RDW 14.3 % (11.6-15.6); WHITE BLOOD COUNT 10.9 K/mm3 (4.0-10.0)
[2021-05-08] MEDS ORDERED: HYDROmorphone *PCA* 10MG/50ML DISP.SYRIN ONE (18:17)
[2021-05-08] MEDS ORDERED: CEFAZOLIN 1 GM in DEXTROSE 5%-WATER - 50 ML IVPB ONE (18:45)
[2021-05-08] MEDS: LACTATED RINGERS SOLUTION 1,000 ML IV SCH (19:01)
[2021-05-08] MEDS: HYDROmorphone *PCA* 10MG/50ML DISP.SYRIN PCA SCH (20:42)
[2021-05-08] MEDS: CEFAZOLIN 2 GM in DEXTROSE 5%-WATER - 100 ML IVPB SCH (23:48)
[2021-05-09] MEDS ORDERED: PCA PUMP NR ONE ×2 (05:40→18:14)
[2021-05-09] MEDS: HYDROmorphone *PCA* 10MG/50ML DISP.SYRIN PCA SCH ×3 (05:44→18:34)
[2021-05-09] MEDS: CEFAZOLIN 2 GM in DEXTROSE 5%-WATER - 100 ML IVPB SCH ×2 (05:44→11:35)
[2021-05-09] MEDS: GABAPENTIN 100 MG CAPSULE PO SCH ×3 (05:44→21:56)
[2021-05-09 09:28] LABS: MAGNESIUM 1.9 mg/dL (1.8-2.4)
[2021-05-09 09:32] LABS: PHOSPHOROUS 2.7 mg/dL (2.5-4.9)
[2021-05-09] MEDS: POLYETHYLENE GLYCOL (HEALTHYLAX) 3350 17 GM PACKET PO SCH (10:06)
[2021-05-09 12:48] LABS: HEMATOCRIT 26.2 % (32.4-45.2); HEMOGLOBIN 9.1 GM/dL (10.7-15.3); MCH 30.2 pg (25.7-33.7); MCHC 34.6 g/dl (32.0-36.0); MEAN CELL VOLUME 87.1 fl (80-96); MEAN PLT VOLUME 7.7 fl (7.5-11.1); PLATELET COUNT 389 10^3/uL (134-434); RBC 3.01 M/mm3 (3.60-5.2); RDW 13.9 % (11.6-15.6); WHITE BLOOD COUNT 10.1 K/mm3 (4.0-10.0)
[2021-05-09 13:01] LABS: CALCIUM 8.5 mg/dL (8.5-10.1)
[2021-05-09 13:05] LABS: CREATININE 0.4 mg/dL (0.55-1.3)
[2021-05-09 13:06] LABS: BILIRUBIN,TOTAL 0.6 mg/dL (0.2-1); TOT PROT 5.2 g/dl (6.4-8.2)
[2021-05-09 14:24] LABS: ANISOCYTOSIS 0; HELMET CELLS 0; HOWELL-JOLLY BODIES 0; MACROCYTOSIS 0; OVALOCYTE 0; PLATELET ESTIMATE NORMAL; ROULEAU 0; SICKELED CELLS 0; TARGET CELLS 0; TEAR DROP CELLS 0; TOXIC GRANULATION 0
[2021-05-09] MEDS: LACTATED RINGERS SOLUTION 1,000 ML IV SCH ×2 (17:42→18:04)
[2021-05-09] MEDS: SENNOSIDES 8.6MG TABLET (FP) PO PRN (18:06)
[2021-05-09] MEDS ORDERED: oxyCODONE HCL 5 MG TABLET PO PRN ×2 (19:00)
[2021-05-10] MEDS: GABAPENTIN 100 MG CAPSULE PO SCH ×3 (05:53→21:22)
[2021-05-10 08:51] LABS: HEMATOCRIT 24.7 % (32.4-45.2); HEMOGLOBIN 8.4 GM/dL (10.7-15.3); MCH 29.6 pg (25.7-33.7); MCHC 34.1 g/dl (32.0-36.0); MEAN PLT VOLUME 7.5 fl (7.5-11.1); PLATELET COUNT 352 10^3/uL (134-434); RBC 2.84 M/mm3 (3.60-5.2); RDW 14.1 % (11.6-15.6)
[2021-05-10 09:32] LABS: ALBUMIN 1.8 g/dl (3.4-5.0); BLOOD UREA NITROGEN 8.2 mg/dL (7-18)
[2021-05-10 09:35] LABS: CREATININE 0.4 mg/dL (0.55-1.3)
[2021-05-10 09:36] LABS: MAGNESIUM 1.9 mg/dL (1.8-2.4)
[2021-05-10 09:37] LABS: BILIRUBIN,TOTAL 0.6 mg/dL (0.2-1)
[2021-05-10 09:42] LABS: TOT PROT 4.8 g/dl (6.4-8.2)
[2021-05-10] MEDS ORDERED: CYCLOBENZAPRINE HCL 10 MG TABLET (FP) PO SCH (10:00)
[2021-05-10 10:11] LABS: ANISOCYTOSIS 1+; MACROCYTOSIS 0; OVALOCYTE 1+; PLATELET ESTIMATE NORMAL
[2021-05-10] MEDS: POLYETHYLENE GLYCOL (HEALTHYLAX) 3350 17 GM PACKET PO SCH (10:41)
[2021-05-10] MEDS: DOCUSATE SODIUM 100 MG CAPSULE (FP) PO PRN (10:42)
[2021-05-10] MEDS ORDERED: PCA PUMP NR ONE (12:05)
[2021-05-10] MEDS: HYDROmorphone *PCA* 10MG/50ML DISP.SYRIN PCA SCH ×2 (12:07→16:48)
[2021-05-10] MEDS: LACTATED RINGERS SOLUTION 1,000 ML/1,000 ML INFUS.BAG IV SCH ×2 (16:30→23:28)
[2021-05-10] MEDS: CYCLOBENZAPRINE HCL 10 MG TABLET (FP) PO SCH (21:22)
[2021-05-11] MEDS ORDERED: PCA PUMP NR ONE ×2 (04:45→18:05)
[2021-05-11] MEDS: GABAPENTIN 100 MG CAPSULE PO SCH ×3 (06:46→21:01)
[2021-05-11] MEDS ORDERED: KCL 10 MEQ IVPB 10 MEQ/100 ML INFUS.BAG IVPB SCH (07:15)
[2021-05-11] MEDS ORDERED: POTASSIUM CHLORIDE TABS 20 MEQ TABLET.ER (FP) PO ONE (07:16)
[2021-05-11 09:12] LABS: HEMATOCRIT 24.2 % (32.4-45.2); HEMOGLOBIN 8.6 GM/dL (10.7-15.3); MCH 30.8 pg (25.7-33.7); MCHC 35.6 g/dl (32.0-36.0); MEAN CELL VOLUME 86.7 fl (80-96); MEAN PLT VOLUME 7.4 fl (7.5-11.1); PLATELET COUNT 300 10^3/uL (134-434); RBC 2.79 M/mm3 (3.60-5.2); RDW 14.3 % (11.6-15.6); WHITE BLOOD COUNT 8.8 K/mm3 (4.0-10.0)
[2021-05-11 09:37] LABS: CALCIUM 7.6 mg/dL (8.5-10.1)
[2021-05-11 09:38] LABS: ALBUMIN 1.8 g/dl (3.4-5.0); BLOOD UREA NITROGEN 5.6 mg/dL (7-18); MAGNESIUM 1.6 mg/dL (1.8-2.4)
[2021-05-11] MEDS: ACETAMINOPHEN 500 MG TABLET (FP) PO SCH ×3 (09:40→23:48)
[2021-05-11] MEDS: MULTIVITAMINS (DAILY MVI) TABLET (FP) PO SCH (09:40)
[2021-05-11] MEDS: POLYETHYLENE GLYCOL (HEALTHYLAX) 3350 17 GM PACKET PO SCH (09:40)
[2021-05-11] MEDS: DOCUSATE SODIUM 100 MG CAPSULE (FP) PO PRN ×2 (09:40→21:01)
[2021-05-11] MEDS: SENNOSIDES 8.6MG TABLET (FP) PO PRN (09:40)
[2021-05-11 09:41] LABS: CREATININE 0.5 mg/dL (0.55-1.3); PHOSPHOROUS 2.7 mg/dL (2.5-4.9)
[2021-05-11 09:42] LABS: BILIRUBIN,TOTAL 0.7 mg/dL (0.2-1); TOT PROT 4.8 g/dl (6.4-8.2)
[2021-05-11 10:09] LABS: ANISOCYTOSIS 0; HELMET CELLS 0; HOWELL-JOLLY BODIES 0; MACROCYTOSIS 0; OVALOCYTE 0; PLATELET ESTIMATE NORMAL; ROULEAU 0; SICKELED CELLS 0; TARGET CELLS 0; TEAR DROP CELLS 0; TOXIC GRANULATION 0
[2021-05-11] MEDS ORDERED: MAGNESIUM 1GM/D5W 100ML - 100 ML IVPB IVPB ONE (10:38)
[2021-05-11] MEDS: oxyCODONE HCL 5 MG TABLET PO PRN ×3 (14:42→22:36)
[2021-05-11] MEDS: SENNOSIDES 8.6MG TABLET (FP) PO SCH (21:01)
[2021-05-11] MEDS: CYCLOBENZAPRINE HCL 10 MG TABLET (FP) PO SCH (21:01)
[2021-05-12] MEDS: oxyCODONE HCL 5 MG TABLET PO PRN ×6 (01:43→21:01)
[2021-05-12] MEDS: GABAPENTIN 100 MG CAPSULE PO SCH ×3 (05:46→21:00)
[2021-05-12] MEDS: ACETAMINOPHEN 500 MG TABLET (FP) PO SCH ×3 (06:15→15:14)
[2021-05-12] MEDS: MULTIVITAMINS (DAILY MVI) TABLET (FP) PO SCH (09:38)
[2021-05-12] MEDS: DOCUSATE SODIUM 100 MG CAPSULE (FP) PO PRN (09:38)
[2021-05-12] MEDS: POLYETHYLENE GLYCOL (HEALTHYLAX) 3350 17 GM PACKET PO SCH (09:38)
[2021-05-12 10:24] LABS: HEMATOCRIT 27.1 % (32.4-45.2); HEMOGLOBIN 9.4 GM/dL (10.7-15.3); MCH 30.5 pg (25.7-33.7); MCHC 34.7 g/dl (32.0-36.0); MEAN PLT VOLUME 7.8 fl (7.5-11.1); PLATELET COUNT 365 10^3/uL (134-434); RBC 3.07 M/mm3 (3.60-5.2); RDW 14.7 % (11.6-15.6)
[2021-05-12 10:47] LABS: BLOOD UREA NITROGEN 4.3 mg/dL (7-18)
[2021-05-12 10:48] LABS: CALCIUM 7.9 mg/dL (8.5-10.1)
[2021-05-12 10:52] LABS: BILIRUBIN,TOTAL 0.8 mg/dL (0.2-1); CREATININE 0.4 mg/dL (0.55-1.3)
[2021-05-12 10:53] LABS: MAGNESIUM 2.2 mg/dL (1.8-2.4); TOT PROT 5.3 g/dl (6.4-8.2)
[2021-05-12 10:57] LABS: PHOSPHOROUS 3.3 mg/dL (2.5-4.9)
[2021-05-12 12:25] LABS: ANISOCYTOSIS 1+; MACROCYTOSIS 1+; PLATELET ESTIMATE NORMAL
[2021-05-12] MEDS ORDERED: MAGNESIUM HYDROX 2400MG/30ML ORAL SUSPENSION 30 ML CUP PO ONE (12:51)
[2021-05-12] MEDS ORDERED: HYDROmorphone HCL CARPU-JECT 2 MG/1 ML DISP.SYRIN SQ PRN (13:26)
[2021-05-12] MEDS: SENNOSIDES 8.6MG TABLET (FP) PO SCH (21:00)
[2021-05-12] MEDS: CYCLOBENZAPRINE HCL 10 MG TABLET (FP) PO SCH (21:00)
[2021-05-13] MEDS: oxyCODONE HCL 5 MG TABLET PO PRN ×6 (00:38→21:13)
[2021-05-13] MEDS: GABAPENTIN 100 MG CAPSULE PO SCH ×3 (05:05→21:12)
[2021-05-13] MEDS: HYDROmorphone HCL 2 MG TABLET PO PRN ×3 (05:05→23:30)
[2021-05-13 08:10] LABS: HEMATOCRIT 28.3 % (32.4-45.2); HEMOGLOBIN 9.8 GM/dL (10.7-15.3); MCH 30.6 pg (25.7-33.7); MCHC 34.7 g/dl (32.0-36.0); MEAN CELL VOLUME 88.2 fl (80-96); MEAN PLT VOLUME 7.4 fl (7.5-11.1); PLATELET COUNT 412 10^3/uL (134-434); RBC 3.21 M/mm3 (3.60-5.2); RDW 15.1 % (11.6-15.6); WHITE BLOOD COUNT 8.1 K/mm3 (4.0-10.0)
[2021-05-13 08:34] LABS: MAGNESIUM 2.4 mg/dL (1.8-2.4)
[2021-05-13 08:35] LABS: BLOOD UREA NITROGEN 7.4 mg/dL (7-18); CALCIUM 8.5 mg/dL (8.5-10.1)
[2021-05-13 08:38] LABS: ALBUMIN 2.3 g/dl (3.4-5.0)
[2021-05-13 08:39] LABS: CREATININE 0.5 mg/dL (0.55-1.3); TOT PROT 5.8 g/dl (6.4-8.2)
[2021-05-13 08:42] LABS: BILIRUBIN,TOTAL 0.9 mg/dL (0.2-1)
[2021-05-13 08:56] LABS: ANISOCYTOSIS 1+; MACROCYTOSIS 0; PLATELET ESTIMATE NORMAL
[2021-05-13] MEDS: POLYETHYLENE GLYCOL (HEALTHYLAX) 3350 17 GM PACKET PO SCH (09:12)
[2021-05-13] MEDS: MULTIVITAMINS (DAILY MVI) TABLET (FP) PO SCH (09:12)
[2021-05-13] MEDS: CYCLOBENZAPRINE HCL 5 MG TABLET PO SCH (11:57)
[2021-05-13] MEDS ORDERED: MAGNESIUM HYDROX 2400MG/30ML ORAL SUSPENSION 30 ML CUP PO ONE (16:48)
[2021-05-13] MEDS: CYCLOBENZAPRINE HCL 10 MG TABLET (FP) PO SCH (21:12)
[2021-05-13] MEDS: SENNOSIDES 8.6MG TABLET (FP) PO SCH (21:12)
[2021-05-14] MEDS: HYDROmorphone HCL 2 MG TABLET PO PRN ×3 (05:18→21:12)
[2021-05-14] MEDS: GABAPENTIN 100 MG CAPSULE PO SCH ×3 (05:18→21:07)
[2021-05-14] MEDS: oxyCODONE HCL 5 MG TABLET PO PRN ×5 (05:57→22:54)
[2021-05-14 08:51] LABS: HEMATOCRIT 28.8 % (32.4-45.2); HEMOGLOBIN 9.8 GM/dL (10.7-15.3); MCHC 33.9 g/dl (32.0-36.0); MEAN CELL VOLUME 88.6 fl (80-96); MEAN PLT VOLUME 7.1 fl (7.5-11.1); PLATELET COUNT 377 10^3/uL (134-434); RBC 3.25 M/mm3 (3.60-5.2); RDW 14.9 % (11.6-15.6); WHITE BLOOD COUNT 7.3 K/mm3 (4.0-10.0)
[2021-05-14] MEDS: MULTIVITAMINS (DAILY MVI) TABLET (FP) PO SCH (09:13)
[2021-05-14] MEDS: DOCUSATE SODIUM 100 MG CAPSULE (FP) PO PRN (09:13)
[2021-05-14] MEDS: POLYETHYLENE GLYCOL (HEALTHYLAX) 3350 17 GM PACKET PO SCH (09:14)
[2021-05-14 09:17] LABS: ALBUMIN 2.4 g/dl (3.4-5.0); BLOOD UREA NITROGEN 10.1 mg/dL (7-18); CALCIUM 8.7 mg/dL (8.5-10.1); MAGNESIUM 2.6 mg/dL (1.8-2.4)
[2021-05-14 09:19] LABS: CREATININE 0.5 mg/dL (0.55-1.3); PHOSPHOROUS 3.4 mg/dL (2.5-4.9)
[2021-05-14 09:21] LABS: BILIRUBIN,TOTAL 0.7 mg/dL (0.2-1); TOT PROT 5.8 g/dl (6.4-8.2)
[2021-05-14] MEDS: CYCLOBENZAPRINE HCL 5 MG TABLET PO SCH (11:06)
[2021-05-14] MEDS ORDERED: HYDROmorphone HCl 2 MG/ML VIAL SQ ONE (11:45)
[2021-05-14] MEDS: SENNOSIDES 8.6MG TABLET (FP) PO SCH (21:07)
[2021-05-14] MEDS: CYCLOBENZAPRINE HCL 10 MG TABLET (FP) PO SCH (21:07)
[2021-05-15] MEDS ORDERED: PT OWN MED DRAWER 7, Y5N ONE ×2 (00:29→20:40)
[2021-05-15] MEDS: oxyCODONE HCL 5 MG TABLET PO PRN (01:57)
[2021-05-15] MEDS: GABAPENTIN 100 MG CAPSULE PO SCH ×3 (06:05→21:06)
[2021-05-15] MEDS: HYDROmorphone HCL 2 MG TABLET PO PRN (06:35)
[2021-05-15] MEDS ORDERED: DEXMEDETOMIDINE HCL 200 MCG/2 ML IVPB ONE (07:09)
[2021-05-15] MEDS ORDERED: ACETAMINOPHEN INJECTION 100 ML IVPB ONE (07:10)
[2021-05-15] MEDS ORDERED: BUPIVACAINE LIPOSOME/PF (EXPAREL) 266 MG/20 ML VIAL ONE (07:15)
[2021-05-15] MEDS ORDERED: BUPIVACAINE HCL/PF 0.5% (5MG/ML) 10 ML VIAL ONE (07:15)
[2021-05-15] MEDS ORDERED: THROMBIN (BOVINE) 20,000 UNIT VIAL TP ONE (07:16)
[2021-05-15] MEDS ORDERED: LIDOCAINE HCL 2% JELLY (5 ML/TUBE) ONE (07:31)
[2021-05-15] MEDS ORDERED: ONDANSETRON 4 MG/2 ML VIAL ONE (07:31)
[2021-05-15] MEDS ORDERED: LIDOCAINE HCL/PF 2% SDV 5ML VIAL ONE (07:31)
[2021-05-15] MEDS ORDERED: ceFAZolin SODIUM 1 GM VIAL ONE ×2 (07:31→16:22)
[2021-05-15] MEDS ORDERED: TRANEXAMIC ACID 1000 MG/10 ML VIAL ONE (07:31)
[2021-05-15] MEDS ORDERED: fentaNYL CITRATE 250 MCG/5 ML VIAL ONE (07:33)
[2021-05-15] MEDS ORDERED: KETAMINE HCL 200 MG/20 ML VIAL ONE (07:33)
[2021-05-15] MEDS ORDERED: SUCCINYLCHOLINE CHLORIDE 200 MG/10 ML SYRINGE ONE (07:34)
[2021-05-15] MEDS ORDERED: ROCURONIUM BROMIDE 50 MG/5 ML SYRINGE ONE ×2 (07:34→11:02)
[2021-05-15] MEDS ORDERED: MIDAZOLAM HCL 2 MG/2 ML SINGLE DOSE VIAL ONE (07:34)
[2021-05-15] MEDS ORDERED: PROPOFOL 20 ML ONE ×2 (07:36)
[2021-05-15] MEDS ORDERED: VANCOMYCIN 1 GM in D5W (PRE-DOCKED) 1,000 MG/250 ML IVPB ONE (08:34)
[2021-05-15] MEDS ORDERED: ceFAZolin 2 GRAM PREMIX BAG IVPB ONE ×2 (08:34→08:55)
[2021-05-15] MEDS ORDERED: THROMBIN (BOVINE) 5,000 UNIT VIAL TP ONE ×2 (08:34→09:40)
[2021-05-15] MEDS ORDERED: GENTAMICIN SO4 80 MG/2 ML VIAL IVPB ONE ×2 (08:35→10:00)
[2021-05-15] MEDS ORDERED: HYDROGEN PEROXIDE 473 ML PO ONE ×2 (08:36→10:11)
[2021-05-15 09:10] LABS: BASO % 0.7 % (0-2.0); EOS % 3.4 % (0-4.5); HEMATOCRIT 28.1 % (32.4-45.2); HEMOGLOBIN 9.5 GM/dL (10.7-15.3); LYMPH % 17.4 % (8-40); MCH 29.9 pg (25.7-33.7); MEAN CELL VOLUME 88.1 fl (80-96); MEAN PLT VOLUME 7.3 fl (7.5-11.1); NEUT % 70.5 % (42.8-82.8); PLATELET COUNT 360 10^3/uL (134-434); RBC 3.19 M/mm3 (3.60-5.2); RDW 14.9 % (11.6-15.6); WHITE BLOOD COUNT 6.8 K/mm3 (4.0-10.0)
[2021-05-15] MEDS: POLYETHYLENE GLYCOL (HEALTHYLAX) 3350 17 GM PACKET PO SCH (10:00)
[2021-05-15] MEDS: MULTIVITAMINS (DAILY MVI) TABLET (FP) PO SCH (10:00)
[2021-05-15] MEDS: CYCLOBENZAPRINE HCL 5 MG TABLET PO SCH (10:00)
[2021-05-15 12:15] LABS: ARTERIAL BLD GAS O2 SATURATION 99.9 % (95-98); ARTERIAL BLOOD GAS BASE EXCESS 3.8 mmol/L (-2-2); ARTERIAL BLOOD GAS PO2 478.6 mmHg (80-100); ARTERIAL BLOOD GAS pH 7.442 (7.350-7.450)
[2021-05-15] MEDS ORDERED: BUPIVACAINE LIPOSOME/PF (EXPAREL) 266 MG/20 ML VIAL NR ONE (12:45)
[2021-05-15] MEDS ORDERED: BUPIVACAINE HCL/PF 0.5% (5MG/ML) 10 ML VIAL IJ ONE (12:45)
[2021-05-15 13:46] LABS: ALBUMIN 2.5 g/dl (3.4-5.0); BILIRUBIN,TOTAL 0.7 mg/dL (0.2-1); BLOOD UREA NITROGEN 14.8 mg/dL (7-18); CALCIUM 8.7 mg/dL (8.5-10.1); CREATININE 0.6 mg/dL (0.55-1.3); MAGNESIUM 2.5 mg/dL (1.8-2.4); TOT PROT 5.9 g/dl (6.4-8.2)
[2021-05-15] MEDS ORDERED: HYDROmorphone *PCA* 10MG/50ML DISP.SYRIN PCA SCH (14:00)
[2021-05-15] MEDS: LACTOBACILLUS ACIDOPHILUS 1 TABLET PO SCH ×2 (14:00→21:06)
[2021-05-15] MEDS ORDERED: HYDROmorphone *PCA* 10MG/50ML DISP.SYRIN ONE (14:48)
[2021-05-15] MEDS: HYDROmorphone *PCA* 10MG/50ML DISP.SYRIN PCA SCH ×2 (15:00→20:41)
[2021-05-15] MEDS: LACTATED RINGERS SOLUTION 1,000 ML IV SCH ×2 (16:30→17:50)
[2021-05-15] MEDS: CEFAZOLIN 2 GM in DEXTROSE 5%-WATER - 100 ML IVPB SCH ×2 (16:30→21:06)
[2021-05-15] MEDS ORDERED: CEFAZOLIN 2 GM in DEXTROSE 5%-WATER - 50 ML IVPB SCH (18:00)
[2021-05-15] MEDS: CYCLOBENZAPRINE HCL 10 MG TABLET (FP) PO SCH (21:06)
[2021-05-15] MEDS: SENNOSIDES 8.6MG TABLET (FP) PO SCH (21:06)
[2021-05-15] MEDS ORDERED: PCA PUMP NR ONE (22:27)
[2021-05-16] MEDS: CEFAZOLIN 2 GM in DEXTROSE 5%-WATER - 100 ML IVPB SCH ×4 (03:30→21:18)
[2021-05-16] MEDS ORDERED: PCA PUMP NR ONE ×3 (04:36→19:51)
[2021-05-16] MEDS: LACTOBACILLUS ACIDOPHILUS 1 TABLET PO SCH ×3 (06:12→21:19)
[2021-05-16] MEDS: GABAPENTIN 100 MG CAPSULE PO SCH ×3 (06:18→21:19)
[2021-05-16 08:22] LABS: HEMATOCRIT 28.9 % (32.4-45.2); HEMOGLOBIN 9.6 GM/dL (10.7-15.3); MCH 29.7 pg (25.7-33.7); MCHC 33.1 g/dl (32.0-36.0); MEAN CELL VOLUME 89.6 fl (80-96); MEAN PLT VOLUME 7.5 fl (7.5-11.1); PLATELET COUNT 300 10^3/uL (134-434); RBC 3.23 M/mm3 (3.60-5.2); WHITE BLOOD COUNT 15.1 K/mm3 (4.0-10.0)
[2021-05-16] MEDS ORDERED: PT OWN MED DRAWER 7, Y5N ONE (09:19)
[2021-05-16] MEDS: POLYETHYLENE GLYCOL (HEALTHYLAX) 3350 17 GM PACKET PO SCH (09:26)
[2021-05-16] MEDS: MULTIVITAMINS (DAILY MVI) TABLET (FP) PO SCH (09:26)
[2021-05-16 09:34] LABS: ANISOCYTOSIS 1+; MACROCYTOSIS 0; PLATELET ESTIMATE NORMAL
[2021-05-16] MEDS ORDERED: CYCLOBENZAPRINE HCL 5 MG TABLET PO SCH (10:00)
[2021-05-16 12:47] LABS: ALBUMIN 2.3 g/dl (3.4-5.0); BILIRUBIN,TOTAL 0.8 mg/dL (0.2-1); BLOOD UREA NITROGEN 6.6 mg/dL (7-18); CALCIUM 8.1 mg/dL (8.5-10.1); CREATININE 0.6 mg/dL (0.55-1.3); MAGNESIUM 2.2 mg/dL (1.8-2.4); PHOSPHOROUS 3.4 mg/dL (2.5-4.9); TOT PROT 5.2 g/dl (6.4-8.2)
[2021-05-16] MEDS ORDERED: SODIUM CHLORIDE 1,000 ML IV SCH (16:45)
[2021-05-16] MEDS: HYDROmorphone *PCA* 10MG/50ML DISP.SYRIN PCA SCH ×2 (20:49→20:50)
[2021-05-16] MEDS: SENNOSIDES 8.6MG TABLET (FP) PO SCH (21:19)
[2021-05-16] MEDS: CYCLOBENZAPRINE HCL 10 MG TABLET (FP) PO SCH ×2 (21:19→21:40)
[2021-05-17] MEDS: CEFAZOLIN 2 GM in DEXTROSE 5%-WATER - 100 ML IVPB SCH ×2 (02:38→09:54)
[2021-05-17] MEDS: LACTOBACILLUS ACIDOPHILUS 1 TABLET PO SCH ×3 (05:58→21:58)
[2021-05-17] MEDS: GABAPENTIN 100 MG CAPSULE PO SCH ×3 (05:59→21:58)
[2021-05-17] MEDS: MULTIVITAMINS (DAILY MVI) TABLET (FP) PO SCH (09:15)
[2021-05-17] MEDS: POLYETHYLENE GLYCOL (HEALTHYLAX) 3350 17 GM PACKET PO SCH (09:15)
[2021-05-17] MEDS: CYCLOBENZAPRINE HCL 10 MG TABLET (FP) PO SCH ×2 (09:15→21:59)
[2021-05-17] MEDS: DOCUSATE SODIUM 100 MG CAPSULE (FP) PO PRN (09:15)
[2021-05-17 10:15] LABS: BASO % 0.5 % (0-2.0); EOS % 1.1 % (0-4.5); HEMATOCRIT 25.3 % (32.4-45.2); HEMOGLOBIN 8.4 GM/dL (10.7-15.3); LYMPH % 5.2 % (8-40); MCH 29.4 pg (25.7-33.7); MCHC 33.4 g/dl (32.0-36.0); MEAN CELL VOLUME 88.2 fl (80-96); MEAN PLT VOLUME 7.3 fl (7.5-11.1); NEUT % 89.2 % (42.8-82.8); PLATELET COUNT 252 10^3/uL (134-434); RBC 2.87 M/mm3 (3.60-5.2); WHITE BLOOD COUNT 15.6 K/mm3 (4.0-10.0)
[2021-05-17] MEDS ORDERED: oxyCODONE HCL 5 MG TABLET PO PRN ×2 (12:07)
[2021-05-17 12:11] LABS: BLOOD UREA NITROGEN 8.2 mg/dL (7-18); CALCIUM 7.9 mg/dL (8.5-10.1); CREATININE 0.6 mg/dL (0.55-1.3); PHOSPHOROUS 2.3 mg/dL (2.5-4.9)
[2021-05-17 12:28] LABS: MAGNESIUM 2.1 mg/dL (1.8-2.4)
[2021-05-17] MEDS ORDERED: PCA PUMP NR ONE (12:37)
[2021-05-17] MEDS: NAPH,MB-DB/K PH,MBDB POWDER PACKET PO SCH ×2 (13:41→21:59)
[2021-05-17] MEDS: morphine SULFATE 4 MG/ML VIAL IVPUSH PRN ×2 (15:21→20:00)
[2021-05-17] MEDS: ACETAMINOPHEN 325 MG TABLET (FP) PO PRN (16:25)
[2021-05-17] MEDS: CLINDAMYCIN 300 MG PREMIX IVPB 300 MG/50 ML BAG IVPB SCH (17:14)
[2021-05-17] MEDS ORDERED: DEXTROSE 5%-WATER 100 ML IVPB ONE (17:22)
[2021-05-17] MEDS ORDERED: PIPERACILLIN/TAZOBACTAM 4.5 GM VIAL IVPB ONE (17:22)
[2021-05-17] MEDS: PIPERACILLIN/TAZOB 4.5 GM 4.5 GM in DEXTROSE 5%-WATER 100 ML IVPB SCH (17:24)
[2021-05-17] MEDS: SENNOSIDES 8.6MG TABLET (FP) PO SCH (21:59)
[2021-05-17] MEDS: oxyCODONE HCL 5 MG TABLET PO PRN (22:01)
[2021-05-18] MEDS ORDERED: DEXTROSE 5%-WATER 100 ML IVPB ONE ×2 (02:24→10:06)
[2021-05-18] MEDS ORDERED: PIPERACILLIN/TAZOBACTAM 4.5 GM VIAL IVPB ONE ×2 (02:24→10:06)
[2021-05-18] MEDS: morphine SULFATE 4 MG/ML VIAL IVPUSH PRN ×3 (02:25→18:52)
[2021-05-18] MEDS: PIPERACILLIN/TAZOB 4.5 GM 4.5 GM in DEXTROSE 5%-WATER 100 ML IVPB SCH ×5 (02:27→11:41)
[2021-05-18] MEDS: CLINDAMYCIN 300 MG PREMIX IVPB 300 MG/50 ML BAG IVPB SCH ×2 (03:00→10:21)
[2021-05-18] MEDS: LACTOBACILLUS ACIDOPHILUS 1 TABLET PO SCH ×3 (05:13→21:50)
[2021-05-18] MEDS: oxyCODONE HCL 5 MG TABLET PO PRN ×3 (05:13→21:49)
[2021-05-18] MEDS: GABAPENTIN 100 MG CAPSULE PO SCH ×3 (05:14→21:49)
[2021-05-18 08:29] LABS: BASO % 0.4 % (0-2.0); HEMATOCRIT 23.7 % (32.4-45.2); HEMOGLOBIN 8.2 GM/dL (10.7-15.3); LYMPH % 6.2 % (8-40); MCH 30.4 pg (25.7-33.7); MCHC 34.7 g/dl (32.0-36.0); MEAN CELL VOLUME 87.6 fl (80-96); MEAN PLT VOLUME 7.8 fl (7.5-11.1); MONO % 3.9 % (3.8-10.2); NEUT % 87.5 % (42.8-82.8); PLATELET COUNT 255 10^3/uL (134-434); RDW 15.2 % (11.6-15.6); WHITE BLOOD COUNT 9.7 K/mm3 (4.0-10.0)
[2021-05-18] MEDS ORDERED: SODIUM CHLORIDE 1,000 ML IV SCH (08:30)
[2021-05-18] MEDS ORDERED: PT OWN MED DRAWER 7, Y5N ONE (10:05)
[2021-05-18] MEDS: POLYETHYLENE GLYCOL (HEALTHYLAX) 3350 17 GM PACKET PO SCH (11:33)
[2021-05-18] MEDS: MULTIVITAMINS (DAILY MVI) TABLET (FP) PO SCH (11:33)
[2021-05-18] MEDS: CYCLOBENZAPRINE HCL 10 MG TABLET (FP) PO SCH ×2 (11:33→21:49)
[2021-05-18 12:54] LABS: BLOOD UREA NITROGEN 6.8 mg/dL (7-18); CALCIUM 8.1 mg/dL (8.5-10.1); CREATININE 0.5 mg/dL (0.55-1.3); MAGNESIUM 2.2 mg/dL (1.8-2.4); PHOSPHOROUS 2.4 mg/dL (2.5-4.9)
[2021-05-18 14:39] LABS: LACTIC ACID 2.3 mmol/L (0.4-2.0)
[2021-05-18] MEDS: SODIUM CHLORIDE 1,000 ML IV SCH (16:13)
[2021-05-18] MEDS ORDERED: DEXTROSE 5%-WATER - 50 ML IVPB ONE (17:06)
[2021-05-18] MEDS ORDERED: PIPERACILLIN/TAZOBACTAM 3.375 GM VIAL IVPB ONE (17:06)
[2021-05-18] MEDS: PIPERACILLIN/TAZOB 3.375 GM 3.375 GM in DEXTROSE 5%-WATER - 50 ML IVPB SCH (17:49)
[2021-05-18] MEDS: SENNOSIDES 8.6MG TABLET (FP) PO SCH (21:51)
[2021-05-19] MEDS: morphine SULFATE 4 MG/ML VIAL IVPUSH PRN ×4 (00:03→23:36)
[2021-05-19] MEDS: SODIUM CHLORIDE 1,000 ML IV SCH ×2 (00:06→16:12)
[2021-05-19] MEDS ORDERED: DEXTROSE 5%-WATER - 50 ML IVPB ONE ×3 (02:41→17:49)
[2021-05-19] MEDS ORDERED: PIPERACILLIN/TAZOBACTAM 3.375 GM VIAL IVPB ONE ×3 (02:41→17:49)
[2021-05-19] MEDS: PIPERACILLIN/TAZOB 3.375 GM 3.375 GM in DEXTROSE 5%-WATER - 50 ML IVPB SCH ×3 (02:47→17:52)
[2021-05-19] MEDS: oxyCODONE HCL 5 MG TABLET PO PRN ×2 (04:30→21:36)
[2021-05-19] MEDS: GABAPENTIN 100 MG CAPSULE PO SCH ×3 (05:19→21:37)
[2021-05-19] MEDS: LACTOBACILLUS ACIDOPHILUS 1 TABLET PO SCH ×3 (05:19→21:37)
[2021-05-19] MEDS ORDERED: PT OWN MED DRAWER 7, Y5N ONE (09:16)
[2021-05-19 09:20] LABS: BLOOD UREA NITROGEN 4.6 mg/dL (7-18); CALCIUM 8.2 mg/dL (8.5-10.1); MAGNESIUM 2.2 mg/dL (1.8-2.4)
[2021-05-19] MEDS: DOCUSATE SODIUM 100 MG CAPSULE (FP) PO PRN (09:21)
[2021-05-19] MEDS: MULTIVITAMINS (DAILY MVI) TABLET (FP) PO SCH (09:21)
[2021-05-19] MEDS: POLYETHYLENE GLYCOL (HEALTHYLAX) 3350 17 GM PACKET PO SCH (09:22)
[2021-05-19] MEDS: CYCLOBENZAPRINE HCL 10 MG TABLET (FP) PO SCH ×2 (09:22→21:36)
[2021-05-19 09:24] LABS: CREATININE 0.5 mg/dL (0.55-1.3)
[2021-05-19 09:25] LABS: PHOSPHOROUS 2.7 mg/dL (2.5-4.9)
[2021-05-19] MEDS: SENNOSIDES 8.6MG TABLET (FP) PO SCH (21:38)
[2021-05-19] MEDS ORDERED: MELATONIN 5 MG TABLETS PO ONE (22:47)
[2021-05-20] MEDS ORDERED: PIPERACILLIN/TAZOBACTAM 3.375 GM VIAL IVPB ONE ×3 (01:11→17:49)
[2021-05-20] MEDS ORDERED: DEXTROSE 5%-WATER - 50 ML IVPB ONE ×3 (01:12→17:49)
[2021-05-20] MEDS: SODIUM CHLORIDE 1,000 ML IV SCH ×3 (01:19→17:56)
[2021-05-20] MEDS: PIPERACILLIN/TAZOB 3.375 GM 3.375 GM in DEXTROSE 5%-WATER - 50 ML IVPB SCH ×3 (01:19→17:55)
[2021-05-20] MEDS: GABAPENTIN 100 MG CAPSULE PO SCH ×3 (06:52→22:15)
[2021-05-20] MEDS: LACTOBACILLUS ACIDOPHILUS 1 TABLET PO SCH ×3 (06:52→22:15)
[2021-05-20 09:00] LABS: BASO % 1.1 % (0-2.0); EOS % 4.2 % (0-4.5); HEMATOCRIT 26.6 % (32.4-45.2); LYMPH % 14.2 % (8-40); MCH 29.8 pg (25.7-33.7); MEAN CELL VOLUME 87.7 fl (80-96); MEAN PLT VOLUME 7.5 fl (7.5-11.1); MONO % 7.6 % (3.8-10.2); NEUT % 72.9 % (42.8-82.8); PLATELET COUNT 296 10^3/uL (134-434); RBC 3.03 M/mm3 (3.60-5.2); RDW 15.2 % (11.6-15.6); WHITE BLOOD COUNT 4.1 K/mm3 (4.0-10.0)
[2021-05-20] MEDS ORDERED: PT OWN MED DRAWER 7, Y5N ONE (09:02)
[2021-05-20] MEDS: morphine SULFATE 4 MG/ML VIAL IVPUSH PRN ×2 (09:08→22:15)
[2021-05-20] MEDS: MULTIVITAMINS (DAILY MVI) TABLET (FP) PO SCH (09:08)
[2021-05-20] MEDS: CYCLOBENZAPRINE HCL 10 MG TABLET (FP) PO SCH ×2 (09:08→22:15)
[2021-05-20] MEDS: POLYETHYLENE GLYCOL (HEALTHYLAX) 3350 17 GM PACKET PO SCH (09:09)
[2021-05-20] MEDS: SENNOSIDES 8.6MG TABLET (FP) PO SCH (22:15)
[2021-05-21] MEDS ORDERED: PIPERACILLIN/TAZOBACTAM 3.375 GM VIAL IVPB ONE ×2 (01:00→08:51)
[2021-05-21] MEDS ORDERED: DEXTROSE 5%-WATER - 50 ML IVPB ONE ×2 (01:01→08:51)
[2021-05-21] MEDS: PIPERACILLIN/TAZOB 3.375 GM 3.375 GM in DEXTROSE 5%-WATER - 50 ML IVPB SCH ×2 (01:04→09:56)
[2021-05-21] MEDS: morphine SULFATE 4 MG/ML VIAL IVPUSH PRN ×3 (05:05→23:12)
[2021-05-21] MEDS: GABAPENTIN 100 MG CAPSULE PO SCH ×3 (05:05→21:28)
[2021-05-21] MEDS: LACTOBACILLUS ACIDOPHILUS 1 TABLET PO SCH ×3 (05:05→21:28)
[2021-05-21] MEDS: MULTIVITAMINS (DAILY MVI) TABLET (FP) PO SCH (09:58)
[2021-05-21] MEDS: POLYETHYLENE GLYCOL (HEALTHYLAX) 3350 17 GM PACKET PO SCH (09:58)
[2021-05-21] MEDS ORDERED: DEXTROSE 5%-WATER 100 ML IVPB ONE (11:19)
[2021-05-21] MEDS: oxyCODONE HCL 5 MG TABLET PO PRN ×2 (11:38→21:39)
[2021-05-21] MEDS: CEFTRIAXONE 2 GM in DEXTROSE 5%-WATER 100 ML IVPB SCH (11:38)
[2021-05-21 13:21] LABS: BASO % 1.2 % (0-2.0); HEMATOCRIT 26.9 % (32.4-45.2); HEMOGLOBIN 9.1 GM/dL (10.7-15.3); LYMPH % 15.1 % (8-40); MCH 29.7 pg (25.7-33.7); MCHC 33.7 g/dl (32.0-36.0); MEAN CELL VOLUME 87.9 fl (80-96); MEAN PLT VOLUME 8.1 fl (7.5-11.1); MONO % 6.3 % (3.8-10.2); NEUT % 74.4 % (42.8-82.8); PLATELET COUNT 319 10^3/uL (134-434); RBC 3.06 M/mm3 (3.60-5.2); RDW 15.2 % (11.6-15.6); WHITE BLOOD COUNT 5.2 K/mm3 (4.0-10.0)
[2021-05-21 14:07] LABS: ALBUMIN 2.1 g/dl (3.4-5.0); BLOOD UREA NITROGEN 6.9 mg/dL (7-18); CALCIUM 8.5 mg/dL (8.5-10.1); MAGNESIUM 2.1 mg/dL (1.8-2.4)
[2021-05-21 14:10] LABS: CREATININE 0.5 mg/dL (0.55-1.3); PHOSPHOROUS 2.8 mg/dL (2.5-4.9)
[2021-05-21 14:12] LABS: BILIRUBIN,TOTAL 0.7 mg/dL (0.2-1)
[2021-05-21] MEDS: SODIUM CHLORIDE 1,000 ML IV SCH (17:34)
[2021-05-21] MEDS: CYCLOBENZAPRINE HCL 10 MG TABLET (FP) PO SCH (21:28)
[2021-05-21] MEDS: SENNOSIDES 8.6MG TABLET (FP) PO SCH (21:28)
[2021-05-22] MEDS ORDERED: morphine SULFATE 4 MG/ML VIAL IVPUSH ONE (03:40)
[2021-05-22] MEDS: GABAPENTIN 100 MG CAPSULE PO SCH ×2 (05:28→13:13)
[2021-05-22] MEDS: LACTOBACILLUS ACIDOPHILUS 1 TABLET PO SCH ×3 (05:28→21:18)
[2021-05-22] MEDS: oxyCODONE HCL 5 MG TABLET PO PRN ×3 (07:53→22:16)
[2021-05-22 08:43] LABS: BASO % 1.2 % (0-2.0); EOS % 4.4 % (0-4.5); HEMOGLOBIN 9.3 GM/dL (10.7-15.3); MCH 30.2 pg (25.7-33.7); MCHC 34.4 g/dl (32.0-36.0); MEAN CELL VOLUME 87.7 fl (80-96); MEAN PLT VOLUME 7.7 fl (7.5-11.1); MONO % 7.2 % (3.8-10.2); NEUT % 70.2 % (42.8-82.8); PLATELET COUNT 362 10^3/uL (134-434); RBC 3.08 M/mm3 (3.60-5.2); RDW 15.4 % (11.6-15.6); WHITE BLOOD COUNT 5.5 K/mm3 (4.0-10.0)
[2021-05-22 09:07] LABS: CALCIUM 8.8 mg/dL (8.5-10.1)
[2021-05-22 09:08] LABS: BLOOD UREA NITROGEN 5.4 mg/dL (7-18); MAGNESIUM 2.2 mg/dL (1.8-2.4)
[2021-05-22 09:11] LABS: CREATININE 0.4 mg/dL (0.55-1.3); PHOSPHOROUS 3.2 mg/dL (2.5-4.9)
[2021-05-22] MEDS ORDERED: DEXTROSE 5%-WATER 100 ML IVPB ONE (09:17)
[2021-05-22] MEDS: MULTIVITAMINS (DAILY MVI) TABLET (FP) PO SCH (10:03)
[2021-05-22] MEDS: CEFTRIAXONE 2 GM in DEXTROSE 5%-WATER 100 ML IVPB SCH (10:04)
[2021-05-22] MEDS: POLYETHYLENE GLYCOL (HEALTHYLAX) 3350 17 GM PACKET PO SCH (10:04)
[2021-05-22] MEDS: FERROUS SO4 325 MG TABLET (FP) PO SCH ×2 (10:08→21:18)
[2021-05-22] MEDS: SODIUM CHLORIDE 1,000 ML IV SCH (16:48)
[2021-05-22] MEDS: LIDOCAINE 5% TOPICAL PATCH TP SCH (20:19)
[2021-05-22] MEDS: ACETAMINOPHEN 325 MG TABLET (FP) PO PRN (20:21)
[2021-05-22] MEDS: SENNOSIDES 8.6MG TABLET (FP) PO SCH (21:18)
[2021-05-22] MEDS: GABAPENTIN 300 MG CAPSULE PO SCH (21:18)
[2021-05-22] MEDS: CYCLOBENZAPRINE HCL 10 MG TABLET (FP) PO SCH (21:18)
[2021-05-22] MEDS: MELATONIN 5 MG TABLETS PO PRN (22:16)
[2021-05-23] MEDS: ACETAMINOPHEN 325 MG TABLET (FP) PO PRN (01:58)
[2021-05-23] MEDS: SODIUM CHLORIDE 1,000 ML IV SCH (03:02)
[2021-05-23] MEDS ORDERED: morphine SULFATE 4 MG/ML VIAL IVPUSH ONE (03:11)
[2021-05-23] MEDS ORDERED: MELATONIN 5 MG TABLETS PO ONE (03:12)
[2021-05-23] MEDS: LIDOCAINE PATCH REMOVAL MC SCH ×2 (03:37→21:23)
[2021-05-23] MEDS: oxyCODONE HCL 5 MG TABLET PO PRN ×3 (06:43→21:16)
[2021-05-23] MEDS: GABAPENTIN 300 MG CAPSULE PO SCH ×3 (06:43→21:16)
[2021-05-23] MEDS: LACTOBACILLUS ACIDOPHILUS 1 TABLET PO SCH ×3 (06:43→21:16)
[2021-05-23] MEDS ORDERED: DEXTROSE 5%-WATER 100 ML IVPB ONE (09:34)
[2021-05-23] MEDS: CEFTRIAXONE 2 GM in DEXTROSE 5%-WATER 100 ML IVPB SCH (09:48)
[2021-05-23] MEDS: FERROUS SO4 325 MG TABLET (FP) PO SCH ×2 (10:01→21:16)
[2021-05-23] MEDS: DULoxetine HCL 30 MG CAPSULE.DR PO SCH (10:01)
[2021-05-23] MEDS: POLYETHYLENE GLYCOL (HEALTHYLAX) 3350 17 GM PACKET PO SCH ×2 (10:01→10:03)
[2021-05-23] MEDS: MULTIVITAMINS (DAILY MVI) TABLET (FP) PO SCH (10:01)
[2021-05-23] MEDS: LIDOCAINE 5% TOPICAL PATCH TP SCH (10:02)
[2021-05-23] MEDS: ACETAMINOPHEN 325 MG TABLET (FP) PO SCH ×2 (13:47→18:28)
[2021-05-23] MEDS: CYCLOBENZAPRINE HCL 10 MG TABLET (FP) PO SCH (21:16)
[2021-05-23] MEDS: MELATONIN 5 MG TABLETS PO PRN (21:16)
[2021-05-23] MEDS: SENNOSIDES 8.6MG TABLET (FP) PO SCH (21:23)
[2021-05-23] MEDS ORDERED: INSULIN (NOVOLOG) ASPART 100 UNITS/ML 10ML VIAL ONE (22:05)
[2021-05-24] MEDS: ACETAMINOPHEN 325 MG TABLET (FP) PO SCH ×4 (01:40→18:41)
[2021-05-24] MEDS ORDERED: morphine SULFATE 4 MG/ML VIAL IVPUSH ONE (02:49)
[2021-05-24] MEDS: oxyCODONE HCL 5 MG TABLET PO PRN ×2 (03:15→14:23)
[2021-05-24] MEDS: LACTOBACILLUS ACIDOPHILUS 1 TABLET PO SCH ×3 (07:00→21:03)
[2021-05-24] MEDS: GABAPENTIN 300 MG CAPSULE PO SCH (07:00)
[2021-05-24 08:41] LABS: EOS % 7.3 % (0-4.5); HEMATOCRIT 25.8 % (32.4-45.2); HEMOGLOBIN 8.8 GM/dL (10.7-15.3); LYMPH % 26.9 % (8-40); MCH 29.6 pg (25.7-33.7); MCHC 33.9 g/dl (32.0-36.0); MEAN CELL VOLUME 87.4 fl (80-96); MEAN PLT VOLUME 7.7 fl (7.5-11.1); MONO % 7.1 % (3.8-10.2); NEUT % 57.7 % (42.8-82.8); PLATELET COUNT 385 10^3/uL (134-434); RBC 2.96 M/mm3 (3.60-5.2); RDW 15.6 % (11.6-15.6); WHITE BLOOD COUNT 4.5 K/mm3 (4.0-10.0)
[2021-05-24 09:35] LABS: CALCIUM 8.7 mg/dL (8.5-10.1)
[2021-05-24 09:36] LABS: MAGNESIUM 2.2 mg/dL (1.8-2.4)
[2021-05-24 09:39] LABS: CREATININE 0.5 mg/dL (0.55-1.3); PHOSPHOROUS 3.7 mg/dL (2.5-4.9)
[2021-05-24] MEDS ORDERED: DEXTROSE 5%-WATER 100 ML IVPB ONE (10:06)
[2021-05-24] MEDS: LIDOCAINE 5% TOPICAL PATCH TP SCH (10:42)
[2021-05-24] MEDS: CEFTRIAXONE 2 GM in DEXTROSE 5%-WATER 100 ML IVPB SCH (10:42)
[2021-05-24] MEDS: FERROUS SO4 325 MG TABLET (FP) PO SCH ×2 (10:42→21:03)
[2021-05-24] MEDS: DULoxetine HCL 30 MG CAPSULE.DR PO SCH (10:42)
[2021-05-24] MEDS: MULTIVITAMINS (DAILY MVI) TABLET (FP) PO SCH (10:42)
[2021-05-24] MEDS: POLYETHYLENE GLYCOL (HEALTHYLAX) 3350 17 GM PACKET PO SCH (10:43)
[2021-05-24] MEDS: GABAPENTIN 400 MG CAPSULE PO SCH ×2 (13:04→21:03)
[2021-05-24] MEDS ORDERED: oxyCODONE HCL 5 MG TABLET PO PRN (15:56)
[2021-05-24] MEDS: MELATONIN 5 MG TABLETS PO SCH (21:03)
[2021-05-24] MEDS: SENNOSIDES 8.6MG TABLET (FP) PO SCH (21:03)
[2021-05-24] MEDS: CYCLOBENZAPRINE HCL 10 MG TABLET (FP) PO SCH (21:03)
[2021-05-24] MEDS: oxyCODONE HCL 5 MG TABLET PO SCH (21:03)
[2021-05-24] MEDS: LIDOCAINE PATCH REMOVAL MC SCH (21:04)
[2021-05-24] MEDS ORDERED: morphine SULFATE 4 MG/ML VIAL IVPUSH PRN (22:00)
[2021-05-25] MEDS: ACETAMINOPHEN 325 MG TABLET (FP) PO SCH ×4 (00:59→21:09)
[2021-05-25] MEDS ORDERED: morphine SULFATE 4 MG/ML VIAL IVPUSH ONE ×2 (01:55→22:58)
[2021-05-25] MEDS: LACTOBACILLUS ACIDOPHILUS 1 TABLET PO SCH ×3 (06:17→21:07)
[2021-05-25] MEDS: GABAPENTIN 400 MG CAPSULE PO SCH ×3 (06:17→21:07)
[2021-05-25] MEDS ORDERED: DEXTROSE 5%-WATER 100 ML IVPB ONE (09:38)
[2021-05-25] MEDS: MULTIVITAMINS (DAILY MVI) TABLET (FP) PO SCH (09:43)
[2021-05-25] MEDS: DULoxetine HCL 30 MG CAPSULE.DR PO SCH (09:43)
[2021-05-25] MEDS: FERROUS SO4 325 MG TABLET (FP) PO SCH ×2 (09:43→21:07)
[2021-05-25] MEDS: LIDOCAINE 5% TOPICAL PATCH TP SCH (09:44)
[2021-05-25] MEDS: CEFTRIAXONE 2 GM in DEXTROSE 5%-WATER 100 ML IVPB SCH (09:44)
[2021-05-25] MEDS: POLYETHYLENE GLYCOL (HEALTHYLAX) 3350 17 GM PACKET PO SCH (09:44)
[2021-05-25 10:03] LABS: BASO % 0.9 % (0-2.0); EOS % 4.9 % (0-4.5); HEMATOCRIT 28.4 % (32.4-45.2); HEMOGLOBIN 9.6 GM/dL (10.7-15.3); LYMPH % 26.3 % (8-40); MCH 29.7 pg (25.7-33.7); MCHC 33.9 g/dl (32.0-36.0); MEAN CELL VOLUME 87.6 fl (80-96); MEAN PLT VOLUME 7.7 fl (7.5-11.1); MONO % 5.9 % (3.8-10.2); PLATELET COUNT 425 10^3/uL (134-434); RBC 3.24 M/mm3 (3.60-5.2); RDW 15.8 % (11.6-15.6); WHITE BLOOD COUNT 3.6 K/mm3 (4.0-10.0)
[2021-05-25 10:45] LABS: CALCIUM 8.8 mg/dL (8.5-10.1)
[2021-05-25 10:46] LABS: BLOOD UREA NITROGEN 7.2 mg/dL (7-18); MAGNESIUM 2.1 mg/dL (1.8-2.4)
[2021-05-25 10:49] LABS: CREATININE 0.6 mg/dL (0.55-1.3); PHOSPHOROUS 3.3 mg/dL (2.5-4.9)
[2021-05-25] MEDS ORDERED: POTASSIUM CHLORIDE TABS 20 MEQ TABLET.ER (FP) PO ONE (11:10)
[2021-05-25] MEDS: diazePAM 5 MG TABLET PO SCH (21:06)
[2021-05-25] MEDS: SENNOSIDES 8.6MG TABLET (FP) PO SCH (21:07)
[2021-05-25] MEDS: CYCLOBENZAPRINE HCL 10 MG TABLET (FP) PO SCH (21:07)
[2021-05-25] MEDS: DOCUSATE SODIUM 100 MG CAPSULE (FP) PO PRN (21:07)
[2021-05-25] MEDS: MELATONIN 5 MG TABLETS PO SCH (21:07)
[2021-05-25] MEDS: oxyCODONE HCL 5 MG TABLET PO SCH (21:08)
[2021-05-25] MEDS: LIDOCAINE PATCH REMOVAL MC SCH (21:11)
[2021-05-25] MEDS ORDERED: diphenhydrAMINE HCL 25 MG CAPSULE (FP) PO ONE (22:00)
[2021-05-25] MEDS ORDERED: ACETAMINOPHEN 1000 MG/100 ML BAG IVPB ONE (22:48)
[2021-05-26] MEDS: GABAPENTIN 400 MG CAPSULE PO SCH ×3 (05:42→21:07)
[2021-05-26] MEDS: LACTOBACILLUS ACIDOPHILUS 1 TABLET PO SCH ×3 (05:42→21:06)
[2021-05-26] MEDS: ACETAMINOPHEN 325 MG TABLET (FP) PO SCH ×3 (06:08→20:14)
[2021-05-26] MEDS ORDERED: DEXTROSE 5%-WATER 100 ML IVPB ONE (09:22)
[2021-05-26 09:33] LABS: BASO % 1.2 % (0-2.0); EOS % 3.2 % (0-4.5); HEMATOCRIT 27.3 % (32.4-45.2); HEMOGLOBIN 9.2 GM/dL (10.7-15.3); LYMPH % 21.7 % (8-40); MCH 29.7 pg (25.7-33.7); MCHC 33.7 g/dl (32.0-36.0); MEAN CELL VOLUME 88.2 fl (80-96); MEAN PLT VOLUME 7.6 fl (7.5-11.1); NEUT % 65.9 % (42.8-82.8); PLATELET COUNT 417 10^3/uL (134-434); WHITE BLOOD COUNT 4.6 K/mm3 (4.0-10.0)
[2021-05-26 10:36] LABS: CALCIUM 8.9 mg/dL (8.5-10.1)
[2021-05-26 10:37] LABS: BLOOD UREA NITROGEN 9.6 mg/dL (7-18); MAGNESIUM 2.1 mg/dL (1.8-2.4)
[2021-05-26] MEDS: LIDOCAINE 5% TOPICAL PATCH TP SCH ×2 (10:37→10:44)
[2021-05-26] MEDS: CEFTRIAXONE 2 GM in DEXTROSE 5%-WATER 100 ML IVPB SCH (10:37)
[2021-05-26] MEDS: DULoxetine HCL 30 MG CAPSULE.DR PO SCH (10:38)
[2021-05-26] MEDS: POLYETHYLENE GLYCOL (HEALTHYLAX) 3350 17 GM PACKET PO SCH (10:38)
[2021-05-26] MEDS: FERROUS SO4 325 MG TABLET (FP) PO SCH ×2 (10:38→21:07)
[2021-05-26] MEDS: MULTIVITAMINS (DAILY MVI) TABLET (FP) PO SCH (10:38)
[2021-05-26 10:39] LABS: CREATININE 0.5 mg/dL (0.55-1.3); PHOSPHOROUS 3.5 mg/dL (2.5-4.9)
[2021-05-26] MEDS ORDERED: PT OWN MED DRAWER 7, Y5N ONE (12:08)
[2021-05-26] MEDS: MELATONIN 5 MG TABLETS PO SCH (21:07)
[2021-05-26] MEDS: SENNOSIDES 8.6MG TABLET (FP) PO SCH (21:07)
[2021-05-26] MEDS: diazePAM 5 MG TABLET PO SCH (21:07)
[2021-05-26] MEDS: oxyCODONE HCL 5 MG TABLET PO SCH (21:07)
[2021-05-26] MEDS: CYCLOBENZAPRINE HCL 10 MG TABLET (FP) PO SCH (21:13)
[2021-05-26] MEDS: LIDOCAINE PATCH REMOVAL MC SCH (21:14)
[2021-05-26] MEDS ORDERED: morphine SULFATE 4 MG/ML VIAL IVPUSH ONE (22:00)
[2021-05-27] MEDS: ACETAMINOPHEN 325 MG TABLET (FP) PO SCH ×4 (01:05→22:38)
[2021-05-27] MEDS: GABAPENTIN 400 MG CAPSULE PO SCH ×3 (05:22→22:40)
[2021-05-27] MEDS: LACTOBACILLUS ACIDOPHILUS 1 TABLET PO SCH ×3 (05:22→22:39)
[2021-05-27] MEDS ORDERED: DEXTROSE 5%-WATER 100 ML IVPB ONE (09:46)
[2021-05-27] MEDS ORDERED: PT OWN MED DRAWER 7, Y5N ONE ×2 (09:49→10:21)
[2021-05-27] MEDS: FERROUS SO4 325 MG TABLET (FP) PO SCH ×2 (10:43→22:39)
[2021-05-27] MEDS: CEFTRIAXONE 2 GM in DEXTROSE 5%-WATER 100 ML IVPB SCH (10:43)
[2021-05-27] MEDS: MULTIVITAMINS (DAILY MVI) TABLET (FP) PO SCH (10:43)
[2021-05-27] MEDS: DULoxetine HCL 30 MG CAPSULE.DR PO SCH (10:43)
[2021-05-27] MEDS: LIDOCAINE 5% TOPICAL PATCH TP SCH (10:43)
[2021-05-27] MEDS: POLYETHYLENE GLYCOL (HEALTHYLAX) 3350 17 GM PACKET PO SCH (10:43)
[2021-05-27] MEDS ORDERED: morphine SULFATE 4 MG/ML VIAL IVPUSH SCH (22:00)
[2021-05-27] MEDS: MELATONIN 5 MG TABLETS PO SCH (22:39)
[2021-05-27] MEDS: LIDOCAINE PATCH REMOVAL MC SCH (22:39)
[2021-05-27] MEDS: CYCLOBENZAPRINE HCL 10 MG TABLET (FP) PO SCH (22:39)
[2021-05-27] MEDS: oxyCODONE HCL 5 MG TABLET PO SCH (22:40)
[2021-05-27] MEDS: SENNOSIDES 8.6MG TABLET (FP) PO SCH (22:41)
[2021-05-27] MEDS: diazePAM 5 MG TABLET PO SCH (22:41)
[2021-05-28] MEDS: ACETAMINOPHEN 325 MG TABLET (FP) PO SCH ×4 (01:15→19:10)
[2021-05-28] MEDS: LACTOBACILLUS ACIDOPHILUS 1 TABLET PO SCH ×3 (05:43→22:58)
[2021-05-28] MEDS: GABAPENTIN 400 MG CAPSULE PO SCH ×3 (05:44→22:58)
[2021-05-28] MEDS ORDERED: DEXTROSE 5%-WATER 100 ML IVPB ONE (08:19)
[2021-05-28] MEDS: CEFTRIAXONE 2 GM in DEXTROSE 5%-WATER 100 ML IVPB SCH (09:07)
[2021-05-28 09:11] LABS: HEMATOCRIT 30.2 % (32.4-45.2); HEMOGLOBIN 10.3 GM/dL (10.7-15.3); MCH 30.1 pg (25.7-33.7); MEAN CELL VOLUME 88.5 fl (80-96); MEAN PLT VOLUME 7.4 fl (7.5-11.1); PLATELET COUNT 424 10^3/uL (134-434); RBC 3.42 M/mm3 (3.60-5.2); RDW 16.8 % (11.6-15.6); WHITE BLOOD COUNT 4.7 K/mm3 (4.0-10.0)
[2021-05-28 09:38] LABS: CALCIUM 9.2 mg/dL (8.5-10.1)
[2021-05-28 09:39] LABS: BLOOD UREA NITROGEN 11.6 mg/dL (7-18)
[2021-05-28 09:42] LABS: CREATININE 0.5 mg/dL (0.55-1.3)
[2021-05-28] MEDS: DULoxetine HCL 30 MG CAPSULE.DR PO SCH (10:23)
[2021-05-28] MEDS: POLYETHYLENE GLYCOL (HEALTHYLAX) 3350 17 GM PACKET PO SCH (10:23)
[2021-05-28] MEDS: FERROUS SO4 325 MG TABLET (FP) PO SCH ×2 (10:23→22:58)
[2021-05-28] MEDS: LIDOCAINE 5% TOPICAL PATCH TP SCH (10:23)
[2021-05-28] MEDS: MULTIVITAMINS (DAILY MVI) TABLET (FP) PO SCH (10:23)
[2021-05-28] MEDS ORDERED: ROCURONIUM BROMIDE 100 MG/10 ML VIAL ONE (13:59)
[2021-05-28] MEDS ORDERED: MIDAZOLAM HCL 2 MG/2 ML SINGLE DOSE VIAL ONE (13:59)
[2021-05-28] MEDS ORDERED: VANCOMYCIN 1,000 MG VIAL (RESTRICTED TO ID ONLY) IVPB ONE (14:55)
[2021-05-28] MEDS ORDERED: VANCOMYCIN 1,000 MG VIAL (RESTRICTED TO ID ONLY) ONE (14:57)
[2021-05-28] MEDS ORDERED: ceFAZolin SODIUM 1 GM VIAL IVPB ONE (15:00)
[2021-05-28] MEDS ORDERED: ONDANSETRON 4 MG/2 ML VIAL IVPUSH PRN ×2 (15:53→17:41)
[2021-05-28] MEDS ORDERED: HYDROmorphone *PCA* 10MG/50ML DISP.SYRIN PCA SCH ×2 (16:00→17:41)
[2021-05-28] MEDS ORDERED: NEOSTIGMINE METHYLSULFATE 0.5 MG/ML - 10 ML MDV ONE ×2 (16:01)
[2021-05-28] MEDS ORDERED: HYDROmorphone *PCA* 10MG/50ML DISP.SYRIN ONE (17:05)
[2021-05-28] MEDS ORDERED: DOCUSATE SODIUM 100 MG CAPSULE (FP) PO PRN (17:41)
[2021-05-28 18:59] LABS: CALCIUM 9.2 mg/dL (8.5-10.1)
[2021-05-28 19:00] LABS: BLOOD UREA NITROGEN 8.7 mg/dL (7-18)
[2021-05-28 19:03] LABS: CREATININE 0.6 mg/dL (0.55-1.3)
[2021-05-28 19:04] LABS: TOT PROT 6.4 g/dl (6.4-8.2)
[2021-05-28 19:05] LABS: BILIRUBIN,TOTAL 0.6 mg/dL (0.2-1)
[2021-05-28] MEDS: LACTATED RINGERS SOLUTION 1,000 ML IV SCH (19:08)
[2021-05-28 20:06] LABS: ALBUMIN 2.8 g/dl (3.4-5.0)
[2021-05-28] MEDS ORDERED: morphine SULFATE 4 MG/ML VIAL IVPUSH SCH (22:00)
[2021-05-28] MEDS ORDERED: LIDOCAINE PATCH REMOVAL MC SCH (22:00)
[2021-05-28] MEDS: LIDOCAINE PATCH REMOVAL MC SCH (22:51)
[2021-05-28] MEDS: diazePAM 5 MG TABLET PO SCH (22:57)
[2021-05-28] MEDS: MELATONIN 5 MG TABLETS PO SCH (22:58)
[2021-05-28] MEDS: CYCLOBENZAPRINE HCL 10 MG TABLET (FP) PO SCH (22:58)
[2021-05-28] MEDS: SENNOSIDES 8.6MG TABLET (FP) PO SCH (22:58)
[2021-05-28] MEDS: HYDROmorphone *PCA* 10MG/50ML DISP.SYRIN PCA SCH (23:58)
[2021-05-29] MEDS: ACETAMINOPHEN 325 MG TABLET (FP) PO SCH ×4 (01:43→18:45)
[2021-05-29] MEDS: LACTATED RINGERS SOLUTION 1,000 ML IV SCH (05:39)
[2021-05-29] MEDS: LACTOBACILLUS ACIDOPHILUS 1 TABLET PO SCH ×3 (06:23→21:08)
[2021-05-29] MEDS: GABAPENTIN 400 MG CAPSULE PO SCH ×3 (06:23→21:08)
[2021-05-29] MEDS: HYDROmorphone *PCA* 10MG/50ML DISP.SYRIN PCA SCH ×2 (06:40→23:46)
[2021-05-29] MEDS ORDERED: PCA PUMP NR ONE (06:43)
[2021-05-29] MEDS ORDERED: DEXTROSE 5%-WATER 100 ML IVPB ONE (09:48)
[2021-05-29] MEDS: MULTIVITAMINS (DAILY MVI) TABLET (FP) PO SCH (10:08)
[2021-05-29] MEDS: FERROUS SO4 325 MG TABLET (FP) PO SCH ×2 (10:09→21:08)
[2021-05-29] MEDS: POLYETHYLENE GLYCOL (HEALTHYLAX) 3350 17 GM PACKET PO SCH (10:09)
[2021-05-29] MEDS: DULoxetine HCL 30 MG CAPSULE.DR PO SCH (10:09)
[2021-05-29] MEDS: CEFTRIAXONE 2 GM in DEXTROSE 5%-WATER 100 ML IVPB SCH (10:09)
[2021-05-29] MEDS: LIDOCAINE 5% TOPICAL PATCH TP SCH (10:10)
[2021-05-29 11:07] LABS: BASO % 0.6 % (0-2.0); EOS % 0.1 % (0-4.5); HEMATOCRIT 26.9 % (32.4-45.2); HEMOGLOBIN 8.9 GM/dL (10.7-15.3); LYMPH % 10.8 % (8-40); MCH 29.7 pg (25.7-33.7); MCHC 33.2 g/dl (32.0-36.0); MEAN CELL VOLUME 89.7 fl (80-96); MEAN PLT VOLUME 7.7 fl (7.5-11.1); MONO % 5.4 % (3.8-10.2); NEUT % 83.1 % (42.8-82.8); PLATELET COUNT 469 10^3/uL (134-434); RDW 16.7 % (11.6-15.6); WHITE BLOOD COUNT 8.3 K/mm3 (4.0-10.0)
[2021-05-29 11:38] LABS: BLOOD UREA NITROGEN 15.6 mg/dL (7-18); CALCIUM 9.2 mg/dL (8.5-10.1); MAGNESIUM 2.2 mg/dL (1.8-2.4)
[2021-05-29 11:41] LABS: ALBUMIN 2.6 g/dl (3.4-5.0); PHOSPHOROUS 4.4 mg/dL (2.5-4.9); TOT PROT 6.1 g/dl (6.4-8.2)
[2021-05-29 11:42] LABS: BILIRUBIN,TOTAL 0.6 mg/dL (0.2-1); CREATININE 0.7 mg/dL (0.55-1.3)
[2021-05-29] MEDS: SODIUM CHLORIDE 1,000 ML IV SCH (16:17)
[2021-05-29] MEDS: diazePAM 5 MG TABLET PO SCH (21:07)
[2021-05-29] MEDS: CYCLOBENZAPRINE HCL 10 MG TABLET (FP) PO SCH (21:08)
[2021-05-29] MEDS: SENNOSIDES 8.6MG TABLET (FP) PO SCH (21:08)
[2021-05-29] MEDS: LIDOCAINE PATCH REMOVAL MC SCH (21:08)
[2021-05-29] MEDS: MELATONIN 5 MG TABLETS PO SCH (21:08)
[2021-05-30] MEDS: ACETAMINOPHEN 325 MG TABLET (FP) PO SCH ×4 (01:08→18:15)
[2021-05-30] MEDS: SODIUM CHLORIDE 1,000 ML IV SCH (05:55)
[2021-05-30] MEDS: GABAPENTIN 400 MG CAPSULE PO SCH ×3 (05:57→21:00)
[2021-05-30] MEDS: LACTOBACILLUS ACIDOPHILUS 1 TABLET PO SCH ×3 (05:57→21:00)
[2021-05-30] MEDS ORDERED: oxyCODONE HCL 5 MG TABLET PO SCH (08:30)
[2021-05-30] MEDS ORDERED: morphine SULFATE 4 MG/ML VIAL IM PRN ×2 (08:35→08:59)
[2021-05-30 09:20] LABS: BASO % 0.9 % (0-2.0); EOS % 4.1 % (0-4.5); HEMATOCRIT 24.7 % (32.4-45.2); HEMOGLOBIN 8.2 GM/dL (10.7-15.3); LYMPH % 23.6 % (8-40); MCH 29.6 pg (25.7-33.7); MCHC 33.3 g/dl (32.0-36.0); MEAN CELL VOLUME 88.9 fl (80-96); MEAN PLT VOLUME 7.6 fl (7.5-11.1); NEUT % 64.4 % (42.8-82.8); PLATELET COUNT 395 10^3/uL (134-434); RBC 2.77 M/mm3 (3.60-5.2); RDW 16.6 % (11.6-15.6); WHITE BLOOD COUNT 6.6 K/mm3 (4.0-10.0)
[2021-05-30] MEDS ORDERED: DEXTROSE 5%-WATER 100 ML IVPB ONE (09:37)
[2021-05-30] MEDS: FERROUS SO4 325 MG TABLET (FP) PO SCH ×2 (09:44→21:00)
[2021-05-30] MEDS: CYCLOBENZAPRINE HCL 10 MG TABLET (FP) PO SCH ×2 (09:44→21:00)
[2021-05-30] MEDS: oxyCODONE HCL 5 MG TABLET PO SCH ×4 (09:44→20:59)
[2021-05-30] MEDS: POLYETHYLENE GLYCOL (HEALTHYLAX) 3350 17 GM PACKET PO SCH (09:44)
[2021-05-30] MEDS: MULTIVITAMINS (DAILY MVI) TABLET (FP) PO SCH (09:44)
[2021-05-30] MEDS: DULoxetine HCL 30 MG CAPSULE.DR PO SCH (09:44)
[2021-05-30] MEDS: DOCUSATE SODIUM 100 MG CAPSULE (FP) PO SCH ×2 (09:45→21:00)
[2021-05-30] MEDS: CEFTRIAXONE 2 GM in DEXTROSE 5%-WATER 100 ML IVPB SCH (09:46)
[2021-05-30] MEDS: LIDOCAINE 5% TOPICAL PATCH TP SCH (09:46)
[2021-05-30] MEDS ORDERED: PCA PUMP NR ONE (09:57)
[2021-05-30 09:58] LABS: BLOOD UREA NITROGEN 13.1 mg/dL (7-18); CALCIUM 8.4 mg/dL (8.5-10.1)
[2021-05-30 09:59] LABS: MAGNESIUM 1.9 mg/dL (1.8-2.4)
[2021-05-30 10:01] LABS: CREATININE 0.6 mg/dL (0.55-1.3)
[2021-05-30] MEDS: diazePAM 5 MG TABLET PO SCH (20:59)
[2021-05-30] MEDS: LIDOCAINE PATCH REMOVAL MC SCH (21:00)
[2021-05-30] MEDS: MELATONIN 5 MG TABLETS PO SCH (21:00)
[2021-05-30] MEDS: SENNOSIDES 8.6MG TABLET (FP) PO SCH (21:00)
[2021-05-31] MEDS: oxyCODONE HCL 5 MG TABLET PO SCH ×6 (00:02→21:32)
[2021-05-31] MEDS: ACETAMINOPHEN 325 MG TABLET (FP) PO SCH ×4 (00:02→18:36)
[2021-05-31] MEDS: GABAPENTIN 400 MG CAPSULE PO SCH ×3 (05:16→21:31)
[2021-05-31] MEDS: LACTOBACILLUS ACIDOPHILUS 1 TABLET PO SCH ×3 (05:16→21:38)
[2021-05-31 08:31] LABS: BASO % 0.8 % (0-2.0); EOS % 4.9 % (0-4.5); HEMOGLOBIN 8.2 GM/dL (10.7-15.3); LYMPH % 25.5 % (8-40); MCH 29.3 pg (25.7-33.7); MEAN CELL VOLUME 88.8 fl (80-96); MEAN PLT VOLUME 7.3 fl (7.5-11.1); MONO % 7.3 % (3.8-10.2); NEUT % 61.5 % (42.8-82.8); PLATELET COUNT 339 10^3/uL (134-434); RBC 2.81 M/mm3 (3.60-5.2); RDW 16.9 % (11.6-15.6)
[2021-05-31 08:50] LABS: CALCIUM 8.5 mg/dL (8.5-10.1)
[2021-05-31 08:51] LABS: BLOOD UREA NITROGEN 8.9 mg/dL (7-18)
[2021-05-31 08:54] LABS: PHOSPHOROUS 3.6 mg/dL (2.5-4.9)
[2021-05-31 08:55] LABS: CREATININE 0.5 mg/dL (0.55-1.3)
[2021-05-31] MEDS ORDERED: DEXTROSE 5%-WATER 100 ML IVPB ONE (09:16)
[2021-05-31] MEDS: FERROUS SO4 325 MG TABLET (FP) PO SCH ×2 (09:33→21:32)
[2021-05-31] MEDS: DOCUSATE SODIUM 100 MG CAPSULE (FP) PO SCH ×2 (09:33→21:31)
[2021-05-31] MEDS: POLYETHYLENE GLYCOL (HEALTHYLAX) 3350 17 GM PACKET PO SCH (09:33)
[2021-05-31] MEDS: DULoxetine HCL 30 MG CAPSULE.DR PO SCH (09:33)
[2021-05-31] MEDS: CYCLOBENZAPRINE HCL 10 MG TABLET (FP) PO SCH ×2 (09:33→21:31)
[2021-05-31] MEDS: LIDOCAINE 5% TOPICAL PATCH TP SCH (09:34)
[2021-05-31] MEDS: CEFTRIAXONE 2 GM in DEXTROSE 5%-WATER 100 ML IVPB SCH (09:34)
[2021-05-31] MEDS: MULTIVITAMINS (DAILY MVI) TABLET (FP) PO SCH (09:34)
[2021-05-31] MEDS ORDERED: morphine SULFATE 4 MG/ML VIAL IVPUSH PRN ×2 (10:48→16:43)
[2021-05-31] MEDS: diazePAM 5 MG TABLET PO SCH (21:31)
[2021-05-31] MEDS: MELATONIN 5 MG TABLETS PO SCH (21:31)
[2021-05-31] MEDS: SENNOSIDES 8.6MG TABLET (FP) PO SCH (21:31)
[2021-05-31] MEDS: LIDOCAINE PATCH REMOVAL MC SCH (21:38)
[2021-06-01] MEDS: oxyCODONE HCL 5 MG TABLET PO SCH ×6 (00:34→21:25)
[2021-06-01] MEDS: ACETAMINOPHEN 325 MG TABLET (FP) PO SCH ×4 (00:34→18:41)
[2021-06-01] MEDS: LACTOBACILLUS ACIDOPHILUS 1 TABLET PO SCH ×3 (06:32→21:25)
[2021-06-01] MEDS: GABAPENTIN 400 MG CAPSULE PO SCH ×3 (06:32→21:25)
[2021-06-01 07:49] LABS: BASO % 1.2 % (0-2.0); EOS % 5.3 % (0-4.5); HEMATOCRIT 25.4 % (32.4-45.2); HEMOGLOBIN 8.5 GM/dL (10.7-15.3); LYMPH % 26.9 % (8-40); MCH 29.8 pg (25.7-33.7); MCHC 33.4 g/dl (32.0-36.0); MEAN CELL VOLUME 89.4 fl (80-96); MEAN PLT VOLUME 7.8 fl (7.5-11.1); MONO % 7.6 % (3.8-10.2); PLATELET COUNT 361 10^3/uL (134-434); RBC 2.84 M/mm3 (3.60-5.2); RDW 16.5 % (11.6-15.6); WHITE BLOOD COUNT 4.5 K/mm3 (4.0-10.0)
[2021-06-01 08:06] LABS: CALCIUM 8.8 mg/dL (8.5-10.1)
[2021-06-01 08:07] LABS: BLOOD UREA NITROGEN 7.4 mg/dL (7-18)
[2021-06-01 08:10] LABS: CREATININE 0.5 mg/dL (0.55-1.3); PHOSPHOROUS 3.6 mg/dL (2.5-4.9)
[2021-06-01] MEDS ORDERED: DEXTROSE 5%-WATER 100 ML IVPB ONE (09:59)
[2021-06-01] MEDS: CYCLOBENZAPRINE HCL 10 MG TABLET (FP) PO SCH ×2 (10:01→21:25)
[2021-06-01] MEDS: DOCUSATE SODIUM 100 MG CAPSULE (FP) PO SCH ×2 (10:02→21:25)
[2021-06-01] MEDS: FERROUS SO4 325 MG TABLET (FP) PO SCH ×2 (10:02→21:25)
[2021-06-01] MEDS: DULoxetine HCL 30 MG CAPSULE.DR PO SCH (10:02)
[2021-06-01] MEDS: POLYETHYLENE GLYCOL (HEALTHYLAX) 3350 17 GM PACKET PO SCH (10:03)
[2021-06-01] MEDS: LIDOCAINE 5% TOPICAL PATCH TP SCH (10:03)
[2021-06-01] MEDS: CEFTRIAXONE 2 GM in DEXTROSE 5%-WATER 100 ML IVPB SCH (10:07)
[2021-06-01] MEDS: MULTIVITAMINS (DAILY MVI) TABLET (FP) PO SCH (14:18)
[2021-06-01] MEDS: MELATONIN 5 MG TABLETS PO SCH (21:25)
[2021-06-01] MEDS: diazePAM 5 MG TABLET PO SCH (21:25)
[2021-06-01] MEDS: SENNOSIDES 8.6MG TABLET (FP) PO SCH (21:26)
[2021-06-01] MEDS: LIDOCAINE PATCH REMOVAL MC SCH (21:27)
[2021-06-02] MEDS ORDERED: morphine SULFATE 4 MG/ML VIAL IVPUSH ONE (00:29)
[2021-06-02] MEDS: ACETAMINOPHEN 325 MG TABLET (FP) PO SCH ×4 (02:45→19:03)
[2021-06-02] MEDS: oxyCODONE HCL 5 MG TABLET PO SCH ×6 (02:46→20:57)
[2021-06-02] MEDS: GABAPENTIN 400 MG CAPSULE PO SCH ×3 (06:43→22:03)
[2021-06-02] MEDS: LACTOBACILLUS ACIDOPHILUS 1 TABLET PO SCH ×3 (06:43→22:03)
[2021-06-02 08:28] LABS: BASO % 1.2 % (0-2.0); EOS % 5.7 % (0-4.5); HEMATOCRIT 23.8 % (32.4-45.2); HEMOGLOBIN 7.9 GM/dL (10.7-15.3); LYMPH % 26.6 % (8-40); MCH 29.5 pg (25.7-33.7); MCHC 33.3 g/dl (32.0-36.0); MEAN CELL VOLUME 88.6 fl (80-96); MEAN PLT VOLUME 7.8 fl (7.5-11.1); MONO % 7.1 % (3.8-10.2); NEUT % 59.4 % (42.8-82.8); PLATELET COUNT 318 10^3/uL (134-434); RBC 2.69 M/mm3 (3.60-5.2); RDW 16.6 % (11.6-15.6); WHITE BLOOD COUNT 4.2 K/mm3 (4.0-10.0)
[2021-06-02 08:47] LABS: CALCIUM 8.5 mg/dL (8.5-10.1)
[2021-06-02 08:48] LABS: BLOOD UREA NITROGEN 6.9 mg/dL (7-18); MAGNESIUM 1.8 mg/dL (1.8-2.4)
[2021-06-02 08:51] LABS: CREATININE 0.5 mg/dL (0.55-1.3); PHOSPHOROUS 3.5 mg/dL (2.5-4.9)
[2021-06-02] MEDS ORDERED: DEXTROSE 5%-WATER 100 ML IVPB ONE (09:53)
[2021-06-02] MEDS ORDERED: PT OWN MED DRAWER 7, Y5N ONE (10:18)
[2021-06-02] MEDS: POLYETHYLENE GLYCOL (HEALTHYLAX) 3350 17 GM PACKET PO SCH (10:23)
[2021-06-02] MEDS: DOCUSATE SODIUM 100 MG CAPSULE (FP) PO SCH ×2 (10:23→22:05)
[2021-06-02] MEDS: CEFTRIAXONE 2 GM in DEXTROSE 5%-WATER 100 ML IVPB SCH (10:25)
[2021-06-02] MEDS: MULTIVITAMINS (DAILY MVI) TABLET (FP) PO SCH (10:25)
[2021-06-02] MEDS: DULoxetine HCL 30 MG CAPSULE.DR PO SCH (10:27)
[2021-06-02] MEDS: CYCLOBENZAPRINE HCL 10 MG TABLET (FP) PO SCH ×2 (10:27→22:04)
[2021-06-02] MEDS: LIDOCAINE 5% TOPICAL PATCH TP SCH (10:27)
[2021-06-02] MEDS: FERROUS SO4 325 MG TABLET (FP) PO SCH ×2 (10:27→22:03)
[2021-06-02] MEDS: MELATONIN 5 MG TABLETS PO SCH (22:03)
[2021-06-02] MEDS: diazePAM 5 MG TABLET PO SCH (22:03)
[2021-06-02] MEDS: SENNOSIDES 8.6MG TABLET (FP) PO SCH (22:04)
[2021-06-02] MEDS: LIDOCAINE PATCH REMOVAL MC SCH (22:05)
[2021-06-02] MEDS: morphine SULFATE 4 MG/ML VIAL IVPUSH PRN (23:35)
[2021-06-03] MEDS: oxyCODONE HCL 5 MG TABLET PO SCH ×6 (01:58→20:59)
[2021-06-03] MEDS: ACETAMINOPHEN 325 MG TABLET (FP) PO SCH ×4 (01:58→18:56)
[2021-06-03] MEDS: LACTOBACILLUS ACIDOPHILUS 1 TABLET PO SCH ×3 (05:43→22:17)
[2021-06-03] MEDS: GABAPENTIN 400 MG CAPSULE PO SCH ×3 (05:43→22:16)
[2021-06-03] MEDS ORDERED: DEXTROSE 5%-WATER 100 ML IVPB ONE (09:34)
[2021-06-03] MEDS ORDERED: PT OWN MED DRAWER 7, Y5N ONE (09:34)
[2021-06-03] MEDS: DULoxetine HCL 30 MG CAPSULE.DR PO SCH (09:52)
[2021-06-03] MEDS: FERROUS SO4 325 MG TABLET (FP) PO SCH ×2 (09:52→22:17)
[2021-06-03] MEDS: DOCUSATE SODIUM 100 MG CAPSULE (FP) PO SCH ×2 (09:52→22:17)
[2021-06-03] MEDS: POLYETHYLENE GLYCOL (HEALTHYLAX) 3350 17 GM PACKET PO SCH (09:53)
[2021-06-03] MEDS: CYCLOBENZAPRINE HCL 10 MG TABLET (FP) PO SCH ×2 (09:53→22:17)
[2021-06-03] MEDS: CEFTRIAXONE 2 GM in DEXTROSE 5%-WATER 100 ML IVPB SCH (09:53)
[2021-06-03] MEDS: MULTIVITAMINS (DAILY MVI) TABLET (FP) PO SCH (09:53)
[2021-06-03] MEDS: LIDOCAINE 5% TOPICAL PATCH TP SCH (09:56)
[2021-06-03 10:28] LABS: BASO % 0.8 % (0-2.0); EOS % 4.2 % (0-4.5); HEMATOCRIT 25.4 % (32.4-45.2); HEMOGLOBIN 8.4 GM/dL (10.7-15.3); LYMPH % 21.4 % (8-40); MCH 29.1 pg (25.7-33.7); MCHC 32.9 g/dl (32.0-36.0); MEAN CELL VOLUME 88.4 fl (80-96); MEAN PLT VOLUME 7.8 fl (7.5-11.1); MONO % 6.7 % (3.8-10.2); NEUT % 66.9 % (42.8-82.8); PLATELET COUNT 344 10^3/uL (134-434); RBC 2.88 M/mm3 (3.60-5.2); RDW 16.6 % (11.6-15.6); WHITE BLOOD COUNT 4.6 K/mm3 (4.0-10.0)
[2021-06-03 11:00] LABS: CALCIUM 8.6 mg/dL (8.5-10.1)
[2021-06-03 11:01] LABS: BLOOD UREA NITROGEN 5.1 mg/dL (7-18); MAGNESIUM 1.9 mg/dL (1.8-2.4)
[2021-06-03 11:03] LABS: CREATININE 0.5 mg/dL (0.55-1.3); PHOSPHOROUS 3.6 mg/dL (2.5-4.9)
[2021-06-03] MEDS: diazePAM 5 MG TABLET PO SCH (22:17)
[2021-06-03] MEDS: MELATONIN 5 MG TABLETS PO SCH (22:17)
[2021-06-03] MEDS: SENNOSIDES 8.6MG TABLET (FP) PO SCH (22:17)
[2021-06-03] MEDS: LIDOCAINE PATCH REMOVAL MC SCH (22:18)
[2021-06-03] MEDS: morphine SULFATE 4 MG/ML VIAL IVPUSH PRN (23:49)
[2021-06-04] MEDS: oxyCODONE HCL 5 MG TABLET PO SCH ×4 (01:25→14:16)
[2021-06-04] MEDS: ACETAMINOPHEN 325 MG TABLET (FP) PO SCH ×4 (01:28→18:47)
[2021-06-04] MEDS: GABAPENTIN 400 MG CAPSULE PO SCH ×3 (05:48→21:27)
[2021-06-04] MEDS: LACTOBACILLUS ACIDOPHILUS 1 TABLET PO SCH ×2 (05:48→14:17)
[2021-06-04 09:34] LABS: INR 1.15 (0.83-1.09); PROTHROMBIN TIME (PATIENT) 12.9 SEC (9.7-13.0)
[2021-06-04 09:38] LABS: BASO % 0.9 % (0-2.0); HEMATOCRIT 24.2 % (32.4-45.2); HEMOGLOBIN 8.2 GM/dL (10.7-15.3); LYMPH % 19.6 % (8-40); MCH 29.9 pg (25.7-33.7); MEAN PLT VOLUME 7.8 fl (7.5-11.1); NEUT % 66.5 % (42.8-82.8); PLATELET COUNT 301 10^3/uL (134-434); RBC 2.75 M/mm3 (3.60-5.2); RDW 16.3 % (11.6-15.6); WHITE BLOOD COUNT 5.3 K/mm3 (4.0-10.0)
[2021-06-04] MEDS ORDERED: THROMBIN (BOVINE) 20,000 UNIT VIAL TP ONE (09:53)
[2021-06-04] MEDS ORDERED: BUPIVACAINE LIPOSOME/PF (EXPAREL) 266 MG/20 ML VIAL ONE (09:53)
[2021-06-04] MEDS ORDERED: BUPIVACAINE HCL/PF 0.5% (5MG/ML) 10 ML VIAL ONE (09:53)
[2021-06-04] MEDS ORDERED: BENZOIN/ALOE VERA/STORAX/TOLU 58 ML BOTTLE ONE (10:13)
[2021-06-04] MEDS ORDERED: DEXTROSE 5%-WATER 100 ML IVPB ONE (10:17)
[2021-06-04] MEDS: FERROUS SO4 325 MG TABLET (FP) PO SCH ×2 (10:19→21:27)
[2021-06-04] MEDS: CYCLOBENZAPRINE HCL 10 MG TABLET (FP) PO SCH ×2 (10:19→21:27)
[2021-06-04] MEDS: DULoxetine HCL 30 MG CAPSULE.DR PO SCH (10:19)
[2021-06-04] MEDS: MULTIVITAMINS (DAILY MVI) TABLET (FP) PO SCH (10:19)
[2021-06-04] MEDS: POLYETHYLENE GLYCOL (HEALTHYLAX) 3350 17 GM PACKET PO SCH (10:20)
[2021-06-04] MEDS: DOCUSATE SODIUM 100 MG CAPSULE (FP) PO SCH (10:20)
[2021-06-04] MEDS: LIDOCAINE 5% TOPICAL PATCH TP SCH (10:30)
[2021-06-04 10:34] LABS: BLOOD UREA NITROGEN 4.4 mg/dL (7-18); MAGNESIUM 1.9 mg/dL (1.8-2.4)
[2021-06-04 10:36] LABS: CALCIUM 8.7 mg/dL (8.5-10.1); CREATININE 0.5 mg/dL (0.55-1.3)
[2021-06-04 10:37] LABS: PHOSPHOROUS 3.4 mg/dL (2.5-4.9)
[2021-06-04] MEDS ORDERED: ceFAZolin 2 GRAM PREMIX BAG IVPB ONE (10:38)
[2021-06-04] MEDS ORDERED: THROMBIN (BOVINE) 5,000 UNIT VIAL TP ONE ×2 (10:39→12:30)
[2021-06-04] MEDS ORDERED: VANCOMYCIN 1 GM in D5W (PRE-DOCKED) 1,000 MG/250 ML IVPB ONE ×2 (10:39→11:50)
[2021-06-04] MEDS ORDERED: HYDROGEN PEROXIDE 473 ML PO ONE ×2 (10:40→12:45)
[2021-06-04] MEDS ORDERED: GENTAMICIN SO4 80 MG/2 ML VIAL IVPB ONE ×2 (10:40→12:35)
[2021-06-04] MEDS ORDERED: BUPIVACAINE HCL/PF 0.5% (5MG/ML) 10 ML VIAL IJ ONE (10:41)
[2021-06-04] MEDS ORDERED: BUPIVACAINE LIPOSOME/PF (EXPAREL) 266 MG/20 ML VIAL NR ONE (10:41)
[2021-06-04] MEDS: CEFTRIAXONE 2 GM in DEXTROSE 5%-WATER 100 ML IVPB SCH (10:56)
[2021-06-04] MEDS ORDERED: MIDAZOLAM HCL 2 MG/2 ML SINGLE DOSE VIAL ONE (11:37)
[2021-06-04] MEDS ORDERED: PROPOFOL 20 ML ONE (11:42)
[2021-06-04] MEDS ORDERED: ROCURONIUM BROMIDE 50 MG/5 ML SYRINGE ONE ×2 (11:42→12:49)
[2021-06-04] MEDS ORDERED: ONDANSETRON 4 MG/2 ML VIAL ONE (12:31)
[2021-06-04] MEDS ORDERED: DEXAMETHASONE SOD PHOSPHATE 4 MG/1 ML VIAL ONE (12:31)
[2021-06-04] MEDS ORDERED: KETOROLAC TROMETHAMINE 30 MG/1 ML VIAL ONE (12:31)
[2021-06-04] MEDS ORDERED: fentaNYL CITRATE 250 MCG/5 ML VIAL ONE (12:32)
[2021-06-04] MEDS ORDERED: ceFAZolin SODIUM 1 GM VIAL ONE ×2 (12:32)
[2021-06-04] MEDS ORDERED: TRANEXAMIC ACID 1000 MG/10 ML VIAL ONE (12:32)
[2021-06-04] MEDS ORDERED: VANCOMYCIN 1,000 MG VIAL (RESTRICTED TO ID ONLY) ONE (12:32)
[2021-06-04] MEDS ORDERED: ePHEDrine SULFATE 50 MG/1 ML AMPULE ONE (12:46)
[2021-06-04] MEDS ORDERED: NEOSTIGMINE METHYLSULFATE 0.5 MG/1 ML - 10 ML MDV ONE ×3 (14:04)
[2021-06-04] MEDS ORDERED: ONDANSETRON 4 MG/2 ML VIAL IVPUSH PRN ×2 (14:33→15:10)
[2021-06-04] MEDS ORDERED: oxyCODONE HCL 5 MG TABLET PO PRN (14:33)
[2021-06-04] MEDS ORDERED: PROMETHAZINE HCL 25 MG/1 ML VIAL IVPUSH PRN ×2 (14:33→15:10)
[2021-06-04] MEDS ORDERED: LIDOCAINE 1%/EPI 1:100000 (20 ML MULTI DOSE VIAL) ONE (14:40)
[2021-06-04] MEDS: KCL 10 MEQ IVPB 10 MEQ/100 ML INFUS.BAG IVPB SCH ×3 (16:44→18:53)
[2021-06-04] MEDS ORDERED: KCL 10 MEQ IVPB 10 MEQ/100 ML INFUS.BAG IVPB SCH (19:00)
[2021-06-04] MEDS: diazePAM 5 MG TABLET PO SCH (21:27)
[2021-06-04] MEDS: MELATONIN 5 MG TABLETS PO SCH (21:27)
[2021-06-04] MEDS: SENNOSIDES 8.6MG TABLET (FP) PO SCH (21:28)
[2021-06-04] MEDS: oxyCODONE HCL 5 MG TABLET PO PRN (21:33)
[2021-06-04] MEDS: LIDOCAINE PATCH REMOVAL MC SCH (22:00)
[2021-06-05] MEDS: ACETAMINOPHEN 325 MG TABLET (FP) PO SCH ×6 (01:15→18:48)
[2021-06-05] MEDS: oxyCODONE HCL 5 MG TABLET PO PRN ×2 (05:54→12:08)
[2021-06-05] MEDS: GABAPENTIN 400 MG CAPSULE PO SCH ×3 (05:54→22:20)
[2021-06-05] MEDS ORDERED: DEXTROSE 5%-WATER 100 ML IVPB ONE (09:00)
[2021-06-05 09:10] LABS: BASO % 0.6 % (0-2.0); EOS % 1.3 % (0-4.5); HEMATOCRIT 29.2 % (32.4-45.2); HEMOGLOBIN 9.9 GM/dL (10.7-15.3); LYMPH % 16.2 % (8-40); MCH 29.3 pg (25.7-33.7); MCHC 33.8 g/dl (32.0-36.0); MEAN CELL VOLUME 86.8 fl (80-96); MEAN PLT VOLUME 8.4 fl (7.5-11.1); MONO % 6.1 % (3.8-10.2); NEUT % 75.8 % (42.8-82.8); PLATELET COUNT 293 10^3/uL (134-434); RBC 3.36 M/mm3 (3.60-5.2); RDW 16.6 % (11.6-15.6); WHITE BLOOD COUNT 6.2 K/mm3 (4.0-10.0)
[2021-06-05 09:28] LABS: ALBUMIN 2.4 g/dl (3.4-5.0); BLOOD UREA NITROGEN 6.3 mg/dL (7-18); CALCIUM 8.9 mg/dL (8.5-10.1); MAGNESIUM 2.1 mg/dL (1.8-2.4)
[2021-06-05 09:31] LABS: CREATININE 0.5 mg/dL (0.55-1.3); PHOSPHOROUS 3.3 mg/dL (2.5-4.9)
[2021-06-05 09:33] LABS: BILIRUBIN,TOTAL 0.8 mg/dL (0.2-1); TOT PROT 5.3 g/dl (6.4-8.2)
[2021-06-05] MEDS: LIDOCAINE 5% TOPICAL PATCH TP SCH ×2 (09:43→12:09)
[2021-06-05] MEDS: CEFTRIAXONE 2 GM in DEXTROSE 5%-WATER 100 ML IVPB SCH (09:43)
[2021-06-05] MEDS: DULoxetine HCL 30 MG CAPSULE.DR PO SCH (09:44)
[2021-06-05] MEDS: POLYETHYLENE GLYCOL (HEALTHYLAX) 3350 17 GM PACKET PO SCH (09:44)
[2021-06-05] MEDS: CYCLOBENZAPRINE HCL 10 MG TABLET (FP) PO SCH ×2 (09:44→22:19)
[2021-06-05] MEDS: FERROUS SO4 325 MG TABLET (FP) PO SCH ×2 (09:44→22:20)
[2021-06-05] MEDS: MULTIVITAMINS (DAILY MVI) TABLET (FP) PO SCH (09:44)
[2021-06-05] MEDS ORDERED: POLYETHYLENE GLYCOL (HEALTHYLAX) 3350 17 GM PACKET PO SCH (11:30)
[2021-06-05] MEDS: oxyCODONE HCL 5 MG TABLET PO SCH (17:19)
[2021-06-05] MEDS: MELATONIN 5 MG TABLETS PO SCH (22:19)
[2021-06-05] MEDS: diazePAM 5 MG TABLET PO SCH (22:19)
[2021-06-05] MEDS: SENNOSIDES 8.6MG TABLET (FP) PO SCH (22:20)
[2021-06-05] MEDS: LIDOCAINE PATCH REMOVAL MC SCH ×2 (22:30→22:45)
[2021-06-06] MEDS: GABAPENTIN 400 MG CAPSULE PO SCH ×3 (06:35→21:00)
[2021-06-06] MEDS: ACETAMINOPHEN 325 MG TABLET (FP) PO SCH ×3 (06:38→20:00)
[2021-06-06 08:29] LABS: HEMATOCRIT 28.7 % (32.4-45.2); HEMOGLOBIN 9.7 GM/dL (10.7-15.3); MCH 29.4 pg (25.7-33.7); MCHC 33.8 g/dl (32.0-36.0); MEAN PLT VOLUME 7.9 fl (7.5-11.1); PLATELET COUNT 282 10^3/uL (134-434); WHITE BLOOD COUNT 7.1 K/mm3 (4.0-10.0)
[2021-06-06] MEDS ORDERED: TAMSULOSIN HCL 0.4 MG CAP PO SCH (08:30)
[2021-06-06 08:41] LABS: BLOOD UREA NITROGEN 6.4 mg/dL (7-18); CALCIUM 8.1 mg/dL (8.5-10.1); MAGNESIUM 1.7 mg/dL (1.8-2.4)
[2021-06-06 08:45] LABS: CREATININE 0.6 mg/dL (0.55-1.3); PHOSPHOROUS 3.2 mg/dL (2.5-4.9)
[2021-06-06] MEDS ORDERED: MAGNESIUM SULF 50% (8.12 MEQ/2 ML-1 GM VIAL) IVPB ONE (09:41)
[2021-06-06] MEDS ORDERED: POTASSIUM CHLORIDE TABS 20 MEQ TABLET.ER (FP) PO ONE (09:42)
[2021-06-06] MEDS ORDERED: DEXTROSE 5%-WATER 100 ML IVPB ONE (10:29)
[2021-06-06] MEDS: FERROUS SO4 325 MG TABLET (FP) PO SCH ×2 (10:39→20:59)
[2021-06-06] MEDS: MULTIVITAMINS (DAILY MVI) TABLET (FP) PO SCH (10:39)
[2021-06-06] MEDS: POLYETHYLENE GLYCOL (HEALTHYLAX) 3350 17 GM PACKET PO SCH (10:40)
[2021-06-06] MEDS: DULoxetine HCL 30 MG CAPSULE.DR PO SCH (10:40)
[2021-06-06] MEDS: CYCLOBENZAPRINE HCL 10 MG TABLET (FP) PO SCH ×2 (10:40→21:00)
[2021-06-06] MEDS: CEFTRIAXONE 2 GM in DEXTROSE 5%-WATER 100 ML IVPB SCH (10:41)
[2021-06-06] MEDS: LIDOCAINE 5% TOPICAL PATCH TP SCH (10:41)
[2021-06-06] MEDS: SENNOSIDES 8.6MG TABLET (FP) PO SCH (20:59)
[2021-06-06] MEDS: MELATONIN 5 MG TABLETS PO SCH (20:59)
[2021-06-06] MEDS: diazePAM 5 MG TABLET PO SCH (21:00)
[2021-06-06] MEDS: LIDOCAINE PATCH REMOVAL MC SCH (21:00)
[2021-06-07] MEDS: ACETAMINOPHEN 325 MG TABLET (FP) PO SCH ×4 (01:00→19:48)
[2021-06-07] MEDS: GABAPENTIN 400 MG CAPSULE PO SCH ×3 (05:59→21:12)
[2021-06-07 08:55] LABS: HEMATOCRIT 30.1 % (32.4-45.2); HEMOGLOBIN 10.1 GM/dL (10.7-15.3); MCH 29.3 pg (25.7-33.7); MCHC 33.5 g/dl (32.0-36.0); MEAN CELL VOLUME 87.3 fl (80-96); MEAN PLT VOLUME 7.8 fl (7.5-11.1); PLATELET COUNT 275 10^3/uL (134-434); RBC 3.45 M/mm3 (3.60-5.2); RDW 16.7 % (11.6-15.6); WHITE BLOOD COUNT 5.3 K/mm3 (4.0-10.0)
[2021-06-07 09:20] LABS: CALCIUM 8.9 mg/dL (8.5-10.1)
[2021-06-07 09:21] LABS: BLOOD UREA NITROGEN 4.6 mg/dL (7-18); MAGNESIUM 2.4 mg/dL (1.8-2.4)
[2021-06-07 09:24] LABS: CREATININE 0.4 mg/dL (0.55-1.3); PHOSPHOROUS 3.9 mg/dL (2.5-4.9)
[2021-06-07] MEDS ORDERED: DEXTROSE 5%-WATER 100 ML IVPB ONE (10:25)
[2021-06-07] MEDS: CYCLOBENZAPRINE HCL 10 MG TABLET (FP) PO SCH ×2 (10:45→21:12)
[2021-06-07] MEDS: FERROUS SO4 325 MG TABLET (FP) PO SCH ×2 (10:45→21:12)
[2021-06-07] MEDS: DULoxetine HCL 30 MG CAPSULE.DR PO SCH (10:45)
[2021-06-07] MEDS: CEFTRIAXONE 2 GM in DEXTROSE 5%-WATER 100 ML IVPB SCH (10:45)
[2021-06-07] MEDS: MULTIVITAMINS (DAILY MVI) TABLET (FP) PO SCH (10:45)
[2021-06-07] MEDS: POLYETHYLENE GLYCOL (HEALTHYLAX) 3350 17 GM PACKET PO SCH (10:46)
[2021-06-07] MEDS: LIDOCAINE 5% TOPICAL PATCH TP SCH (10:46)
[2021-06-07] MEDS: diazePAM 5 MG TABLET PO SCH (21:11)
[2021-06-07] MEDS: MELATONIN 5 MG TABLETS PO SCH (21:12)
[2021-06-07] MEDS: LIDOCAINE PATCH REMOVAL MC SCH (21:12)
[2021-06-07] MEDS: SENNOSIDES 8.6MG TABLET (FP) PO SCH (21:12)
[2021-06-08] MEDS ORDERED: ONDANSETRON 4 MG/2 ML VIAL IVPUSH ONE ×2 (00:42→12:19)
[2021-06-08] MEDS: ACETAMINOPHEN 325 MG TABLET (FP) PO SCH ×4 (01:27→19:56)
[2021-06-08] MEDS: GABAPENTIN 400 MG CAPSULE PO SCH ×3 (05:41→22:20)
[2021-06-08] MEDS: oxyCODONE HCL 5 MG TABLET PO SCH ×2 (08:24→10:56)
[2021-06-08 08:44] LABS: HEMATOCRIT 30.7 % (32.4-45.2); HEMOGLOBIN 10.3 GM/dL (10.7-15.3); MCH 28.7 pg (25.7-33.7); MCHC 33.5 g/dl (32.0-36.0); MEAN CELL VOLUME 85.6 fl (80-96); MEAN PLT VOLUME 7.8 fl (7.5-11.1); PLATELET COUNT 292 10^3/uL (134-434); RBC 3.59 M/mm3 (3.60-5.2); RDW 16.5 % (11.6-15.6); WHITE BLOOD COUNT 6.3 K/mm3 (4.0-10.0)
[2021-06-08 09:09] LABS: CALCIUM 8.8 mg/dL (8.5-10.1)
[2021-06-08 09:10] LABS: ALBUMIN 2.5 g/dl (3.4-5.0); BLOOD UREA NITROGEN 5.5 mg/dL (7-18); MAGNESIUM 2.3 mg/dL (1.8-2.4)
[2021-06-08] MEDS ORDERED: DEXTROSE 5%-WATER 100 ML IVPB ONE (09:11)
[2021-06-08 09:13] LABS: CREATININE 0.5 mg/dL (0.55-1.3)
[2021-06-08 09:14] LABS: BILIRUBIN,TOTAL 0.9 mg/dL (0.2-1); TOT PROT 5.6 g/dl (6.4-8.2)
[2021-06-08] MEDS: DULoxetine HCL 30 MG CAPSULE.DR PO SCH (10:47)
[2021-06-08] MEDS: FERROUS SO4 325 MG TABLET (FP) PO SCH ×2 (10:47→22:20)
[2021-06-08] MEDS: MULTIVITAMINS (DAILY MVI) TABLET (FP) PO SCH (10:47)
[2021-06-08] MEDS: CYCLOBENZAPRINE HCL 10 MG TABLET (FP) PO SCH ×2 (10:47→22:19)
[2021-06-08] MEDS: POLYETHYLENE GLYCOL (HEALTHYLAX) 3350 17 GM PACKET PO SCH (10:53)
[2021-06-08] MEDS: LIDOCAINE 5% TOPICAL PATCH TP SCH (10:53)
[2021-06-08] MEDS: CEFTRIAXONE 2 GM in DEXTROSE 5%-WATER 100 ML IVPB SCH (10:54)
[2021-06-08] MEDS: MELATONIN 5 MG TABLETS PO SCH (22:20)
[2021-06-08] MEDS: diazePAM 5 MG TABLET PO SCH (22:20)
[2021-06-08] MEDS: LIDOCAINE PATCH REMOVAL MC SCH (22:20)
[2021-06-08] MEDS: SENNOSIDES 8.6MG TABLET (FP) PO SCH (22:20)
[2021-06-09] MEDS ORDERED: ONDANSETRON 4 MG/2 ML VIAL IVPUSH ONE ×3 (01:05→20:23)
[2021-06-09] MEDS: ACETAMINOPHEN 325 MG TABLET (FP) PO SCH ×4 (01:50→18:46)
[2021-06-09] MEDS: GABAPENTIN 400 MG CAPSULE PO SCH ×3 (06:34→21:04)
[2021-06-09 09:04] LABS: BASO % 1.2 % (0-2.0); EOS % 8.2 % (0-4.5); HEMATOCRIT 31.1 % (32.4-45.2); HEMOGLOBIN 10.5 GM/dL (10.7-15.3); LYMPH % 23.1 % (8-40); MCH 29.1 pg (25.7-33.7); MCHC 33.9 g/dl (32.0-36.0); MEAN CELL VOLUME 85.7 fl (80-96); MEAN PLT VOLUME 7.7 fl (7.5-11.1); NEUT % 58.5 % (42.8-82.8); PLATELET COUNT 274 10^3/uL (134-434); RBC 3.62 M/mm3 (3.60-5.2); RDW 15.8 % (11.6-15.6); WHITE BLOOD COUNT 4.4 K/mm3 (4.0-10.0)
[2021-06-09 09:18] LABS: BLOOD UREA NITROGEN 7.2 mg/dL (7-18); CALCIUM 8.9 mg/dL (8.5-10.1); MAGNESIUM 2.1 mg/dL (1.8-2.4)
[2021-06-09 09:21] LABS: CREATININE 0.6 mg/dL (0.55-1.3)
[2021-06-09 09:22] LABS: PHOSPHOROUS 4.3 mg/dL (2.5-4.9)
[2021-06-09] MEDS ORDERED: DEXTROSE 5%-WATER 100 ML IVPB ONE (09:50)
[2021-06-09] MEDS: DULoxetine HCL 30 MG CAPSULE.DR PO SCH (09:55)
[2021-06-09] MEDS: CEFTRIAXONE 2 GM in DEXTROSE 5%-WATER 100 ML IVPB SCH (09:56)
[2021-06-09] MEDS: CYCLOBENZAPRINE HCL 10 MG TABLET (FP) PO SCH ×2 (09:56→21:03)
[2021-06-09] MEDS: POLYETHYLENE GLYCOL (HEALTHYLAX) 3350 17 GM PACKET PO SCH (09:56)
[2021-06-09] MEDS: MULTIVITAMINS (DAILY MVI) TABLET (FP) PO SCH (09:56)
[2021-06-09] MEDS: LIDOCAINE 5% TOPICAL PATCH TP SCH (09:57)
[2021-06-09] MEDS: FERROUS SO4 325 MG TABLET (FP) PO SCH ×2 (09:58→21:03)
[2021-06-09] MEDS: SENNOSIDES 8.6MG TABLET (FP) PO SCH (21:04)
[2021-06-09] MEDS: diazePAM 5 MG TABLET PO SCH (21:04)
[2021-06-09] MEDS: MELATONIN 5 MG TABLETS PO SCH (21:04)
[2021-06-09] MEDS: LIDOCAINE PATCH REMOVAL MC SCH (21:04)
[2021-06-10] MEDS: ACETAMINOPHEN 325 MG TABLET (FP) PO SCH ×4 (01:20→18:46)
[2021-06-10] MEDS: GABAPENTIN 400 MG CAPSULE PO SCH ×3 (06:05→21:26)
[2021-06-10] MEDS ORDERED: DEXTROSE 5%-WATER 100 ML IVPB ONE (09:30)
[2021-06-10] MEDS ORDERED: PT OWN MED DRAWER 7, Y5N ONE (09:30)
[2021-06-10] MEDS: DULoxetine HCL 30 MG CAPSULE.DR PO SCH (09:32)
[2021-06-10] MEDS: MULTIVITAMINS (DAILY MVI) TABLET (FP) PO SCH (09:33)
[2021-06-10] MEDS: CYCLOBENZAPRINE HCL 10 MG TABLET (FP) PO SCH ×2 (09:33→21:26)
[2021-06-10] MEDS: POLYETHYLENE GLYCOL (HEALTHYLAX) 3350 17 GM PACKET PO SCH (09:33)
[2021-06-10] MEDS: FERROUS SO4 325 MG TABLET (FP) PO SCH ×2 (09:33→21:26)
[2021-06-10] MEDS: CEFTRIAXONE 2 GM in DEXTROSE 5%-WATER 100 ML IVPB SCH (09:34)
[2021-06-10] MEDS: LIDOCAINE 5% TOPICAL PATCH TP SCH (09:35)
[2021-06-10 10:22] LABS: EOS % 6.5 % (0-4.5); HEMATOCRIT 35.2 % (32.4-45.2); HEMOGLOBIN 11.9 GM/dL (10.7-15.3); LYMPH % 20.8 % (8-40); MCH 29.2 pg (25.7-33.7); MCHC 33.7 g/dl (32.0-36.0); MEAN CELL VOLUME 86.5 fl (80-96); MEAN PLT VOLUME 7.8 fl (7.5-11.1); MONO % 6.1 % (3.8-10.2); NEUT % 65.6 % (42.8-82.8); PLATELET COUNT 301 10^3/uL (134-434); RBC 4.07 M/mm3 (3.60-5.2); RDW 16.2 % (11.6-15.6); WHITE BLOOD COUNT 5.1 K/mm3 (4.0-10.0)
[2021-06-10 10:48] LABS: BLOOD UREA NITROGEN 7.1 mg/dL (7-18); CALCIUM 8.9 mg/dL (8.5-10.1)
[2021-06-10 10:49] LABS: MAGNESIUM 2.3 mg/dL (1.8-2.4)
[2021-06-10 10:51] LABS: CREATININE 0.6 mg/dL (0.55-1.3); PHOSPHOROUS 4.4 mg/dL (2.5-4.9)
[2021-06-10] MEDS: MELATONIN 5 MG TABLETS PO SCH (21:26)
[2021-06-10] MEDS: SENNOSIDES 8.6MG TABLET (FP) PO SCH (21:26)
[2021-06-10] MEDS: diazePAM 5 MG TABLET PO SCH (21:27)
[2021-06-10] MEDS: LIDOCAINE PATCH REMOVAL MC SCH (21:28)
[2021-06-11] MEDS: ACETAMINOPHEN 325 MG TABLET (FP) PO SCH ×4 (02:00→19:05)
[2021-06-11] MEDS: GABAPENTIN 400 MG CAPSULE PO SCH ×3 (05:39→21:56)
[2021-06-11 08:40] LABS: BASO % 0.8 % (0-2.0); EOS % 6.8 % (0-4.5); HEMATOCRIT 31.6 % (32.4-45.2); HEMOGLOBIN 10.6 GM/dL (10.7-15.3); LYMPH % 18.3 % (8-40); MCH 29.2 pg (25.7-33.7); MCHC 33.6 g/dl (32.0-36.0); MEAN CELL VOLUME 87.1 fl (80-96); MEAN PLT VOLUME 7.8 fl (7.5-11.1); MONO % 7.9 % (3.8-10.2); NEUT % 66.2 % (42.8-82.8); PLATELET COUNT 285 10^3/uL (134-434); RBC 3.63 M/mm3 (3.60-5.2); RDW 16.1 % (11.6-15.6); WHITE BLOOD COUNT 5.7 K/mm3 (4.0-10.0)
[2021-06-11 09:01] LABS: ALBUMIN 2.8 g/dl (3.4-5.0); BLOOD UREA NITROGEN 10.6 mg/dL (7-18); CALCIUM 8.8 mg/dL (8.5-10.1); MAGNESIUM 2.2 mg/dL (1.8-2.4)
[2021-06-11 09:06] LABS: BILIRUBIN,TOTAL 0.5 mg/dL (0.2-1)
[2021-06-11 09:07] LABS: TOT PROT 5.7 g/dl (6.4-8.2)
[2021-06-11 09:17] LABS: CREATININE 0.6 mg/dL (0.55-1.3)
[2021-06-11] MEDS ORDERED: DEXTROSE 5%-WATER 100 ML IVPB ONE (10:57)
[2021-06-11] MEDS: CEFTRIAXONE 2 GM in DEXTROSE 5%-WATER 100 ML IVPB SCH (11:02)
[2021-06-11] MEDS: MULTIVITAMINS (DAILY MVI) TABLET (FP) PO SCH (11:03)
[2021-06-11] MEDS: CYCLOBENZAPRINE HCL 10 MG TABLET (FP) PO SCH ×2 (11:03→21:56)
[2021-06-11] MEDS: POLYETHYLENE GLYCOL (HEALTHYLAX) 3350 17 GM PACKET PO SCH (11:03)
[2021-06-11] MEDS: DULoxetine HCL 30 MG CAPSULE.DR PO SCH (11:03)
[2021-06-11] MEDS: FERROUS SO4 325 MG TABLET (FP) PO SCH ×2 (11:03→21:56)
[2021-06-11] MEDS: LIDOCAINE 5% TOPICAL PATCH TP SCH (11:04)
[2021-06-11] MEDS: MELATONIN 5 MG TABLETS PO SCH (21:56)
[2021-06-11] MEDS: SENNOSIDES 8.6MG TABLET (FP) PO SCH (21:56)
[2021-06-11] MEDS: LIDOCAINE PATCH REMOVAL MC SCH (23:34)
[2021-06-12] MEDS: ACETAMINOPHEN 325 MG TABLET (FP) PO SCH ×4 (01:31→18:02)
[2021-06-12] MEDS ORDERED: oxyCODONE HCL 5 MG TABLET PO PRN ×2 (05:26→10:06)
[2021-06-12] MEDS ORDERED: oxyCODONE HCL 5 MG TABLET PO ONE (05:26)
[2021-06-12] MEDS: GABAPENTIN 400 MG CAPSULE PO SCH ×3 (05:42→21:05)
[2021-06-12 09:05] LABS: CALCIUM 9.2 mg/dL (8.5-10.1)
[2021-06-12 09:06] LABS: ALBUMIN 2.8 g/dl (3.4-5.0); BLOOD UREA NITROGEN 7.7 mg/dL (7-18); MAGNESIUM 2.2 mg/dL (1.8-2.4)
[2021-06-12 09:09] LABS: CREATININE 0.5 mg/dL (0.55-1.3); PHOSPHOROUS 3.4 mg/dL (2.5-4.9)
[2021-06-12 09:10] LABS: BILIRUBIN,TOTAL 0.6 mg/dL (0.2-1); TOT PROT 6.1 g/dl (6.4-8.2)
[2021-06-12 09:21] LABS: BASO % 1.1 % (0-2.0); EOS % 5.7 % (0-4.5); HEMATOCRIT 31.9 % (32.4-45.2); HEMOGLOBIN 10.8 GM/dL (10.7-15.3); LYMPH % 23.4 % (8-40); MCH 29.3 pg (25.7-33.7); MCHC 33.9 g/dl (32.0-36.0); MEAN CELL VOLUME 86.3 fl (80-96); MEAN PLT VOLUME 7.8 fl (7.5-11.1); MONO % 7.4 % (3.8-10.2); NEUT % 62.4 % (42.8-82.8); PLATELET COUNT 285 10^3/uL (134-434); RDW 16.3 % (11.6-15.6); WHITE BLOOD COUNT 4.7 K/mm3 (4.0-10.0)
[2021-06-12] MEDS ORDERED: DEXTROSE 5%-WATER 100 ML IVPB ONE (09:23)
[2021-06-12] MEDS: CYCLOBENZAPRINE HCL 10 MG TABLET (FP) PO SCH ×2 (09:52→21:06)
[2021-06-12] MEDS: MULTIVITAMINS (DAILY MVI) TABLET (FP) PO SCH (09:52)
[2021-06-12] MEDS: DULoxetine HCL 30 MG CAPSULE.DR PO SCH (09:52)
[2021-06-12] MEDS: FERROUS SO4 325 MG TABLET (FP) PO SCH ×2 (09:52→21:05)
[2021-06-12] MEDS: LIDOCAINE 5% TOPICAL PATCH TP SCH ×2 (09:52→10:19)
[2021-06-12] MEDS: POLYETHYLENE GLYCOL (HEALTHYLAX) 3350 17 GM PACKET PO SCH (09:53)
[2021-06-12] MEDS: CEFTRIAXONE 2 GM in DEXTROSE 5%-WATER 100 ML IVPB SCH (09:53)
[2021-06-12] MEDS ORDERED: ACETAMINOPHEN 1000 MG/100 ML BAG IVPB PRN (17:32)
[2021-06-12] MEDS: MELATONIN 5 MG TABLETS PO SCH (21:05)
[2021-06-12] MEDS: SENNOSIDES 8.6MG TABLET (FP) PO SCH (21:05)
[2021-06-12] MEDS: LIDOCAINE PATCH REMOVAL MC SCH (22:02)
[2021-06-13] MEDS: ACETAMINOPHEN 325 MG TABLET (FP) PO SCH ×4 (01:52→19:13)
[2021-06-13] MEDS: GABAPENTIN 400 MG CAPSULE PO SCH ×3 (07:07→21:44)
[2021-06-13 08:47] LABS: BLOOD UREA NITROGEN 9.4 mg/dL (7-18); CALCIUM 9.4 mg/dL (8.5-10.1); MAGNESIUM 2.4 mg/dL (1.8-2.4)
[2021-06-13 08:50] LABS: BASO % 1.1 % (0-2.0); CREATININE 0.7 mg/dL (0.55-1.3); EOS % 6.4 % (0-4.5); HEMATOCRIT 32.4 % (32.4-45.2); HEMOGLOBIN 10.8 GM/dL (10.7-15.3); MCH 29.4 pg (25.7-33.7); MCHC 33.5 g/dl (32.0-36.0); MEAN CELL VOLUME 87.7 fl (80-96); MEAN PLT VOLUME 7.9 fl (7.5-11.1); MONO % 8.3 % (3.8-10.2); NEUT % 58.2 % (42.8-82.8); PHOSPHOROUS 4.3 mg/dL (2.5-4.9); PLATELET COUNT 279 10^3/uL (134-434); RBC 3.69 M/mm3 (3.60-5.2); RDW 16.1 % (11.6-15.6); WHITE BLOOD COUNT 4.9 K/mm3 (4.0-10.0)
[2021-06-13] MEDS ORDERED: DEXTROSE 5%-WATER 100 ML IVPB ONE (10:05)
[2021-06-13] MEDS: CYCLOBENZAPRINE HCL 10 MG TABLET (FP) PO SCH ×2 (10:12→21:43)
[2021-06-13] MEDS: FERROUS SO4 325 MG TABLET (FP) PO SCH ×2 (10:12→21:43)
[2021-06-13] MEDS: CEFTRIAXONE 2 GM in DEXTROSE 5%-WATER 100 ML IVPB SCH (10:13)
[2021-06-13] MEDS: DULoxetine HCL 30 MG CAPSULE.DR PO SCH (10:13)
[2021-06-13] MEDS: MULTIVITAMINS (DAILY MVI) TABLET (FP) PO SCH (10:13)
[2021-06-13] MEDS: LIDOCAINE 5% TOPICAL PATCH TP SCH (10:14)
[2021-06-13] MEDS: POLYETHYLENE GLYCOL (HEALTHYLAX) 3350 17 GM PACKET PO SCH (10:14)
[2021-06-13 15:43] VITALS: TEMP 98.4
[2021-06-13] MEDS: MELATONIN 5 MG TABLETS PO SCH (21:43)
[2021-06-13] MEDS: SENNOSIDES 8.6MG TABLET (FP) PO SCH (21:44)
[2021-06-13 22:02] VITALS: BP 149/94; PULSE 83
[2021-06-13] MEDS: LIDOCAINE PATCH REMOVAL MC SCH (22:35)
[2021-06-14] MEDS: ACETAMINOPHEN 325 MG TABLET (FP) PO SCH
== END 2021-06-14 03:15 | disposition home or self-care (01) | DRG 454 ==
LOC: J2C 04:20 → JICU 22:41 → J8W 05-04 21:53
PROVIDERS: ADMIT Orthopaedic Surgery Orthopaedic Surgery of the Spine; ATTEND Internal Medicine
PROC: 0SG0071 Fusion of Lumbar Vertebral Joint with Autologous Tissue Substitute, Posterior Approach, Posterior Column, Open Approach (ICD-10-PCS; 2021-04-30)
PROC: 0SG30AJ Fusion of Lumbosacral Joint with Interbody Fusion Device, Posterior Approach, Anterior Column, Open Approach (ICD-10-PCS; 2021-04-30)
PROC: 0SG3071 Fusion of Lumbosacral Joint with Autologous Tissue Substitute, Posterior Approach, Posterior Column, Open Approach (ICD-10-PCS; 2021-04-30)
PROC: 00QT0ZZ Repair Spinal Meninges, Open Approach (ICD-10-PCS; 2021-04-30)
PROC: 01NB0ZZ Release Lumbar Nerve, Open Approach (ICD-10-PCS; 2021-04-30)
PROC: 0SB40ZZ Excision of Lumbosacral Disc, Open Approach (ICD-10-PCS; 2021-04-30)
PROC: 0RG6071 Fusion of Thoracic Vertebral Joint with Autologous Tissue Substitute, Posterior Approach, Posterior Column, Open Approach (ICD-10-PCS; 2021-04-30)
PROC: 0QB00ZZ Excision of Lumbar Vertebra, Open Approach (ICD-10-PCS; 2021-04-30)
PROC: 0SG00AJ Fusion of Lumbar Vertebral Joint with Interbody Fusion Device, Posterior Approach, Anterior Column, Open Approach (ICD-10-PCS; principal; 2021-04-30 11:00)
PROC: 0JB70ZZ Excision of Back Subcutaneous Tissue and Fascia, Open Approach (ICD-10-PCS; 2021-05-08)
PROC: 00QT0ZZ Repair Spinal Meninges, Open Approach (ICD-10-PCS; 2021-05-08)
PROC: 0J970ZZ Drainage of Back Subcutaneous Tissue and Fascia, Open Approach (ICD-10-PCS; 2021-05-08)
PROC: 3E1R38Z Irrigation of Spinal Canal using Irrigating Substance, Percutaneous Approach (ICD-10-PCS; 2021-05-08)
PROC: 0QB23ZZ Excision of Right Pelvic Bone, Percutaneous Approach (ICD-10-PCS; 2021-05-15)
PROC: 0PW404Z Revision of Internal Fixation Device in Thoracic Vertebra, Open Approach (ICD-10-PCS; 2021-05-15)
PROC: 0RG6071 Fusion of Thoracic Vertebral Joint with Autologous Tissue Substitute, Posterior Approach, Posterior Column, Open Approach (ICD-10-PCS; 2021-05-15)
PROC: 00QT0ZZ Repair Spinal Meninges, Open Approach (ICD-10-PCS; 2021-05-15)
PROC: 0RW Upper Joints, Revision (ICD-10-PCS; 2021-05-15)
PROC: 07DR3ZZ Extraction of Iliac Bone Marrow, Percutaneous Approach (ICD-10-PCS; 2021-05-15)
PROC: 07DR3ZZ Extraction of Iliac Bone Marrow, Percutaneous Approach (ICD-10-PCS; 2021-05-15)
PROC: 30233L1 Transfusion of Nonautologous Fresh Plasma into Peripheral Vein, Percutaneous Approach (ICD-10-PCS; 2021-05-15)
PROC: 30233K1 Transfusion of Nonautologous Frozen Plasma into Peripheral Vein, Percutaneous Approach (ICD-10-PCS; 2021-05-15)
PROC: 30233N1 Transfusion of Nonautologous Red Blood Cells into Peripheral Vein, Percutaneous Approach (ICD-10-PCS; 2021-05-15)
PROC: 0J970ZZ Drainage of Back Subcutaneous Tissue and Fascia, Open Approach (ICD-10-PCS; 2021-05-28)
PROC: 00QT0ZZ Repair Spinal Meninges, Open Approach (ICD-10-PCS; 2021-06-04)
PROC: 0SP004Z Removal of Internal Fixation Device from Lumbar Vertebral Joint, Open Approach (ICD-10-PCS; 2021-06-04)
PROC: 0JX70ZB Transfer Back Subcutaneous Tissue and Fascia with Skin and Subcutaneous Tissue, Open Approach (ICD-10-PCS; 2021-06-04)
PROC: 0SS004Z Reposition Lumbar Vertebral Joint with Internal Fixation Device, Open Approach (ICD-10-PCS; 2021-06-04)
PROC: 0J970ZZ Drainage of Back Subcutaneous Tissue and Fascia, Open Approach (ICD-10-PCS; 2021-06-04)
PROC: 05HB33Z Insertion of Infusion Device into Right Basilic Vein, Percutaneous Approach (ICD-10-PCS; 2021-06-13)
PROC: B51MZZA Fluoroscopy of Right Upper Extremity Veins, Guidance (ICD-10-PCS; 2021-06-13)
DX: M47.894 Other spondylosis, thoracic region (principal); T84.84XA Pain due to internal orthopedic prosthetic devices, implants and grafts, initial encounter; S32.10XA Unspecified fracture of sacrum, initial encounter for closed fracture; T81.44XA Sepsis following a procedure, initial encounter; G97.41 Accidental puncture or laceration of dura during a procedure; I24.8 Other forms of acute ischemic heart disease; T81.718A Complication of other artery following a procedure, not elsewhere classified, initial encounter; E87.2 Acidosis; G96.00 Cerebrospinal fluid leak, unspecified; M47.895 Other spondylosis, thoracolumbar region; M40.295 Other kyphosis, thoracolumbar region; M51.24 Other intervertebral disc displacement, thoracic region; D64.9 Anemia, unspecified; D17.79 Benign lipomatous neoplasm of other sites; Y83.9 Surgical procedure, unspecified as the cause of abnormal reaction of the patient, or of later complication, without mention of misadventure at the time of the procedure; Y92.89 Other specified places as the place of occurrence of the external cause; R74.01 Elevation of levels of liver transaminase levels; W19.XXXA Unspecified fall, initial encounter; Y93.9 Activity, unspecified; Y99.9 Unspecified external cause status; E87.6 Hypokalemia; K59.00 Constipation, unspecified; D72.829 Elevated white blood cell count, unspecified; E83.39 Other disorders of phosphorus metabolism
CPT/HCPCS: 36415; 36430; 36569; 36600; 71045-TC-FY; 72128-TC; 72129-TC; 72130-TC; 72131-TC; 72132-TC; 72148-TC; 72192-TC; 76000-TC-FY; 77001-TC-FY; 80048; 80053; 81003; 82550; 82553; 82803; 83540; 83550; 83605; 83735; 84100; 84484; 85025; 85027; 85610; 86850; 86900; 86901; 86922; 87040; 87070; 87086; 87186; 87205; 93005; 93010; 93306-TC; 93970-TC; 93971-TC; 94002; 94760; 97116-GP; 97162-GP; C1751; C9803; J0131; J1644; P9017; P9058; Q9967; U0003; U0005

== ENCOUNTER 2022-03-05 11:09 | Inpatient (IN) | payer OTHER ==
[2022-03-05] MEDS ORDERED: morphine CARPU-JECT 4 MG/1 ML DISP.SYRIN IVPUSH ONE ×2 (14:26→20:39)
[2022-03-05] MEDS ORDERED: ONDANSETRON 4 MG/2 ML VIAL IVPUSH ONE (14:26)
[2022-03-05] MEDS ORDERED: ONDANSETRON 4 MG/2 ML VIAL ONE (16:30)
[2022-03-05] MEDS ORDERED: morphine SULFATE 4 MG/ML VIAL ONE ×2 (16:30→21:22)
[2022-03-05 17:03] LABS: BASO % 0.4 % (0-2.0); EOS % 0.3 % (0-4.5); HEMATOCRIT 43.8 % (32.4-45.2); HEMOGLOBIN 14.7 GM/dL (10.7-15.3); LYMPH % 23.5 % (8-40); MCH 30.4 pg (25.7-33.7); MCHC 33.6 g/dl (32.0-36.0); MEAN CELL VOLUME 90.4 fl (80-96); MEAN PLT VOLUME 7.9 fl (7.5-11.1); MONO % 6.9 % (3.8-10.2); NEUT % 68.9 % (42.8-82.8); PLATELET COUNT 279 10^3/uL (134-434); RBC 4.85 M/mm3 (3.60-5.2); RDW 14.9 % (11.6-15.6); WHITE BLOOD COUNT 7.5 K/mm3 (4.0-10.0)
[2022-03-05 17:10] LABS: INR 1.08 (0.83-1.09); PROTHROMBIN TIME (PATIENT) 12.4 SEC (9.7-13.0)
[2022-03-05 17:17] LABS: ALBUMIN 4.4 g/dl (3.4-5.0); CALCIUM 10.2 mg/dL (8.5-10.1)
[2022-03-05 17:18] LABS: BLOOD UREA NITROGEN 21.6 mg/dL (7-18)
[2022-03-05 17:21] LABS: CREATININE 0.8 mg/dL (0.55-1.3)
[2022-03-05 17:22] LABS: BILIRUBIN,TOTAL 1.5 mg/dL (0.2-1); TOT PROT 8.3 g/dl (6.4-8.2)
[2022-03-06] MEDS ORDERED: oxyCODONE HCL 5 MG TABLET PO PRN (00:04)
[2022-03-06] MEDS ORDERED: ONDANSETRON 4 MG/2 ML VIAL ONE (01:56)
[2022-03-06] MEDS ORDERED: ONDANSETRON 4 MG TABLET PO ONE (02:25)
[2022-03-06 04:31] VITALS: BMI 26.9
[2022-03-06 09:18] LABS: BASO % 0.6 % (0-2.0); EOS % 1.1 % (0-4.5); HEMATOCRIT 38.3 % (32.4-45.2); HEMOGLOBIN 13.3 GM/dL (10.7-15.3); LYMPH % 30.6 % (8-40); MCH 31.4 pg (25.7-33.7); MCHC 34.7 g/dl (32.0-36.0); MEAN CELL VOLUME 90.4 fl (80-96); MEAN PLT VOLUME 7.3 fl (7.5-11.1); MONO % 8.2 % (3.8-10.2); NEUT % 59.5 % (42.8-82.8); PLATELET COUNT 224 10^3/uL (134-434); RBC 4.23 M/mm3 (3.60-5.2); RDW 14.8 % (11.6-15.6); WHITE BLOOD COUNT 6.4 K/mm3 (4.0-10.0)
[2022-03-06 09:21] LABS: CALCIUM 9.4 mg/dL (8.5-10.1)
[2022-03-06 09:22] LABS: ALBUMIN 3.7 g/dl (3.4-5.0); BLOOD UREA NITROGEN 23.9 mg/dL (7-18); MAGNESIUM 2.1 mg/dL (1.8-2.4)
[2022-03-06 09:25] LABS: CREATININE 0.8 mg/dL (0.55-1.3); PHOSPHOROUS 4.2 mg/dL (2.5-4.9)
[2022-03-06 09:26] LABS: TOT PROT 7.1 g/dl (6.4-8.2)
[2022-03-06] MEDS: DOCUSATE SODIUM 100 MG CAPSULE (FP) PO SCH (10:26)
[2022-03-06] MEDS: ENOXAPARIN NA (PORCINE) 40 MG/0.4 ML DISP.SYRIN SQ SCH (10:26)
[2022-03-06] MEDS: CYCLOBENZAPRINE HCL 10 MG TABLET (FP) PO SCH ×2 (12:26→21:48)
[2022-03-06] MEDS: DULoxetine HCL 30 MG CAPSULE.DR PO SCH (12:26)
[2022-03-06] MEDS: morphine SULFATE 4 MG/ML VIAL IVPUSH PRN ×3 (13:26→21:45)
[2022-03-06] MEDS: GABAPENTIN 100 MG CAPSULE PO SCH ×2 (14:47→21:48)
[2022-03-06] MEDS ORDERED: ONDANSETRON 4 MG/2 ML VIAL IVPUSH ONE (20:26)
[2022-03-06] MEDS: SENNOSIDES 8.6MG TABLET (FP) PO SCH (21:48)
[2022-03-06] MEDS: oxyCODONE HCL 5 MG TABLET PO PRN (23:35)
[2022-03-07] MEDS: morphine SULFATE 4 MG/ML VIAL IVPUSH PRN ×6 (01:50→23:43)
[2022-03-07 02:14] LABS: PH,URINE 5.5 (5.0-8.0); URINE APPEARANCE TURBID; URINE BILIRUBIN NEGATIVE (NEGATIVE); URINE COLOR DK YELLOW; URINE GLUCOSE (UA) NEGATIVE (NEGATIVE); URINE KETONE TRACE (NEGATIVE); URINE LEUK ESTERASE NEGATIVE (NEGATIVE); URINE NITRITE NEGATIVE (NEGATIVE); URINE PROTEIN TRACE (NEGATIVE)
[2022-03-07] MEDS: GABAPENTIN 100 MG CAPSULE PO SCH ×3 (05:50→22:26)
[2022-03-07] MEDS: DULoxetine HCL 30 MG CAPSULE.DR PO SCH (09:29)
[2022-03-07] MEDS: DOCUSATE SODIUM 100 MG CAPSULE (FP) PO SCH (09:29)
[2022-03-07] MEDS: CYCLOBENZAPRINE HCL 10 MG TABLET (FP) PO SCH ×2 (09:29→22:27)
[2022-03-07] MEDS: HYDROCHLOROTHIAZIDE 25 MG TABLET (FP) PO SCH (09:30)
[2022-03-07] MEDS: oxyCODONE HCL 5 MG TABLET PO PRN (09:30)
[2022-03-07] MEDS: ENOXAPARIN NA (PORCINE) 40 MG/0.4 ML DISP.SYRIN SQ SCH (09:31)
[2022-03-07 09:51] LABS: BASO % 0.8 % (0-2.0); EOS % 1.7 % (0-4.5); HEMATOCRIT 38.5 % (32.4-45.2); LYMPH % 32.7 % (8-40); MCH 30.4 pg (25.7-33.7); MCHC 33.6 g/dl (32.0-36.0); MEAN CELL VOLUME 90.4 fl (80-96); MEAN PLT VOLUME 7.4 fl (7.5-11.1); MONO % 8.5 % (3.8-10.2); NEUT % 56.3 % (42.8-82.8); PLATELET COUNT 232 10^3/uL (134-434); RBC 4.26 M/mm3 (3.60-5.2); RDW 13.9 % (11.6-15.6); WHITE BLOOD COUNT 4.9 K/mm3 (4.0-10.0)
[2022-03-07 11:13] LABS: TOT PROT 6.6 g/dl (6.4-8.2)
[2022-03-07 11:14] LABS: BILIRUBIN,TOTAL 1.9 mg/dL (0.2-1)
[2022-03-07 11:18] LABS: CALCIUM 9.4 mg/dL (8.5-10.1)
[2022-03-07 11:19] LABS: ALBUMIN 3.5 g/dl (3.4-5.0); BLOOD UREA NITROGEN 24.6 mg/dL (7-18); MAGNESIUM 1.9 mg/dL (1.8-2.4)
[2022-03-07 11:22] LABS: CREATININE 0.8 mg/dL (0.55-1.3)
[2022-03-07] MEDS: SENNOSIDES 8.6MG TABLET (FP) PO SCH (22:26)
[2022-03-08] MEDS: morphine SULFATE 4 MG/ML VIAL IVPUSH PRN ×5 (03:20→21:40)
[2022-03-08] MEDS: GABAPENTIN 100 MG CAPSULE PO SCH ×2 (05:56→14:20)
[2022-03-08] MEDS: DOCUSATE SODIUM 100 MG CAPSULE (FP) PO SCH (10:17)
[2022-03-08] MEDS: DULoxetine HCL 30 MG CAPSULE.DR PO SCH (10:17)
[2022-03-08] MEDS: CYCLOBENZAPRINE HCL 10 MG TABLET (FP) PO SCH ×2 (10:18→21:39)
[2022-03-08] MEDS: ENOXAPARIN NA (PORCINE) 40 MG/0.4 ML DISP.SYRIN SQ SCH (10:18)
[2022-03-08] MEDS: HYDROCHLOROTHIAZIDE 25 MG TABLET (FP) PO SCH (10:18)
[2022-03-08 11:29] LABS: BASO % 0.8 % (0-2.0); EOS % 2.1 % (0-4.5); HEMOGLOBIN 12.9 GM/dL (10.7-15.3); LYMPH % 30.3 % (8-40); MCH 30.5 pg (25.7-33.7); MCHC 33.8 g/dl (32.0-36.0); MEAN CELL VOLUME 90.3 fl (80-96); MEAN PLT VOLUME 7.7 fl (7.5-11.1); NEUT % 57.8 % (42.8-82.8); PLATELET COUNT 243 10^3/uL (134-434); RBC 4.21 M/mm3 (3.60-5.2); RDW 14.2 % (11.6-15.6); WHITE BLOOD COUNT 4.8 K/mm3 (4.0-10.0)
[2022-03-08 11:52] LABS: CALCIUM 9.5 mg/dL (8.5-10.1)
[2022-03-08 11:53] LABS: ALBUMIN 3.5 g/dl (3.4-5.0); MAGNESIUM 1.8 mg/dL (1.8-2.4)
[2022-03-08 11:56] LABS: CREATININE 0.8 mg/dL (0.55-1.3)
[2022-03-08 11:57] LABS: BILIRUBIN,TOTAL 1.3 mg/dL (0.2-1); TOT PROT 6.8 g/dl (6.4-8.2)
[2022-03-08 16:04] LABS: BILIRUBIN,DIRECT 0.3 mg/dL (0.0-0.2)
[2022-03-08] MEDS: SENNOSIDES 8.6MG TABLET (FP) PO SCH (21:39)
[2022-03-08] MEDS: GABAPENTIN 400 MG CAPSULE PO SCH (21:39)
[2022-03-09] MEDS: POLYETHYLENE GLYCOL (HEALTHYLAX) 3350 17 GM PACKET PO SCH ×4 (01:17→21:04)
[2022-03-09] MEDS: morphine SULFATE 4 MG/ML VIAL IVPUSH PRN ×5 (01:57→22:57)
[2022-03-09] MEDS: GABAPENTIN 400 MG CAPSULE PO SCH ×3 (06:02→21:04)
[2022-03-09] MEDS: CYCLOBENZAPRINE HCL 10 MG TABLET (FP) PO SCH ×2 (09:13→21:04)
[2022-03-09] MEDS: HYDROCHLOROTHIAZIDE 25 MG TABLET (FP) PO SCH (09:13)
[2022-03-09] MEDS: ENOXAPARIN NA (PORCINE) 40 MG/0.4 ML DISP.SYRIN SQ SCH (09:14)
[2022-03-09] MEDS: DULoxetine HCL 30 MG CAPSULE.DR PO SCH (09:14)
[2022-03-09 11:42] LABS: BASO % 0.8 % (0-2.0); EOS % 1.5 % (0-4.5); HEMATOCRIT 38.6 % (32.4-45.2); HEMOGLOBIN 13.3 GM/dL (10.7-15.3); LYMPH % 29.2 % (8-40); MCH 31.1 pg (25.7-33.7); MCHC 34.3 g/dl (32.0-36.0); MEAN CELL VOLUME 90.5 fl (80-96); MEAN PLT VOLUME 7.8 fl (7.5-11.1); MONO % 10.5 % (3.8-10.2); PLATELET COUNT 247 10^3/uL (134-434); RBC 4.27 M/mm3 (3.60-5.2); RDW 14.2 % (11.6-15.6); WHITE BLOOD COUNT 5.8 K/mm3 (4.0-10.0)
[2022-03-09 12:12] LABS: ALBUMIN 3.6 g/dl (3.4-5.0); BLOOD UREA NITROGEN 15.3 mg/dL (7-18); CALCIUM 9.8 mg/dL (8.5-10.1)
[2022-03-09 12:16] LABS: CREATININE 0.7 mg/dL (0.55-1.3)
[2022-03-09 12:18] LABS: BILIRUBIN,TOTAL 1.6 mg/dL (0.2-1)
[2022-03-09] MEDS ORDERED: oxyCODONE HCL 5 MG TABLET PO PRN (13:53)
[2022-03-09] MEDS: SENNOSIDES 8.6MG TABLET (FP) PO SCH (21:04)
[2022-03-09] MEDS: oxyCODONE HCL 5 MG TABLET PO PRN (21:04)
[2022-03-10] MEDS: morphine SULFATE 4 MG/ML VIAL IVPUSH PRN ×4 (03:56→22:48)
[2022-03-10 05:21] VITALS: RESP 18
[2022-03-10] MEDS: POLYETHYLENE GLYCOL (HEALTHYLAX) 3350 17 GM PACKET PO SCH ×3 (06:20→20:59)
[2022-03-10] MEDS: oxyCODONE HCL 5 MG TABLET PO PRN ×3 (06:20→21:00)
[2022-03-10] MEDS: GABAPENTIN 400 MG CAPSULE PO SCH ×3 (06:21→21:00)
[2022-03-10] MEDS: HYDROCHLOROTHIAZIDE 25 MG TABLET (FP) PO SCH (09:13)
[2022-03-10] MEDS: ENOXAPARIN NA (PORCINE) 40 MG/0.4 ML DISP.SYRIN SQ SCH (09:13)
[2022-03-10] MEDS: DULoxetine HCL 30 MG CAPSULE.DR PO SCH (09:13)
[2022-03-10] MEDS: CYCLOBENZAPRINE HCL 10 MG TABLET (FP) PO SCH ×2 (09:13→21:01)
[2022-03-10 10:40] LABS: BASO % 0.9 % (0-2.0); EOS % 1.4 % (0-4.5); HEMATOCRIT 43.6 % (32.4-45.2); HEMOGLOBIN 14.8 GM/dL (10.7-15.3); LYMPH % 36.6 % (8-40); MCH 30.8 pg (25.7-33.7); MCHC 33.9 g/dl (32.0-36.0); MEAN CELL VOLUME 90.8 fl (80-96); MEAN PLT VOLUME 8.7 fl (7.5-11.1); MONO % 6.6 % (3.8-10.2); NEUT % 54.5 % (42.8-82.8); RDW 14.3 % (11.6-15.6); WHITE BLOOD COUNT 6.5 K/mm3 (4.0-10.0)
[2022-03-10 11:00] LABS: BLOOD UREA NITROGEN 20.6 mg/dL (7-18); CALCIUM 10.2 mg/dL (8.5-10.1)
[2022-03-10 11:01] LABS: MAGNESIUM 2.1 mg/dL (1.8-2.4)
[2022-03-10 11:02] LABS: CREATININE 0.9 mg/dL (0.55-1.3)
[2022-03-10 11:04] LABS: BILIRUBIN,TOTAL 1.3 mg/dL (0.2-1); TOT PROT 7.8 g/dl (6.4-8.2)
[2022-03-10 12:11] LABS: PLATELET COUNT 257 10^3/uL (134-434)
[2022-03-10] MEDS: SENNOSIDES 8.6MG TABLET (FP) PO SCH (21:00)
[2022-03-11] MEDS: morphine SULFATE 4 MG/ML VIAL IVPUSH PRN (03:42)
[2022-03-11] MEDS: oxyCODONE HCL 5 MG TABLET PO PRN ×2 (05:02→10:46)
[2022-03-11] MEDS: GABAPENTIN 400 MG CAPSULE PO SCH ×3 (05:03→22:13)
[2022-03-11] MEDS: POLYETHYLENE GLYCOL (HEALTHYLAX) 3350 17 GM PACKET PO SCH ×3 (05:03→22:13)
[2022-03-11 10:25] LABS: EOS % 1.9 % (0-4.5); HEMATOCRIT 38.3 % (32.4-45.2); HEMOGLOBIN 13.3 GM/dL (10.7-15.3); LYMPH % 36.4 % (8-40); MCH 31.6 pg (25.7-33.7); MCHC 34.8 g/dl (32.0-36.0); MEAN CELL VOLUME 90.7 fl (80-96); MONO % 9.8 % (3.8-10.2); NEUT % 50.9 % (42.8-82.8); PLATELET COUNT 244 10^3/uL (134-434); RBC 4.22 M/mm3 (3.60-5.2); WHITE BLOOD COUNT 4.6 K/mm3 (4.0-10.0)
[2022-03-11 10:36] LABS: CALCIUM 9.9 mg/dL (8.5-10.1)
[2022-03-11 10:37] LABS: ALBUMIN 3.8 g/dl (3.4-5.0)
[2022-03-11 10:40] LABS: CREATININE 0.9 mg/dL (0.55-1.3); MAGNESIUM 2.2 mg/dL (1.8-2.4)
[2022-03-11 10:45] LABS: TOT PROT 7.5 g/dl (6.4-8.2)
[2022-03-11] MEDS: DULoxetine HCL 30 MG CAPSULE.DR PO SCH (10:47)
[2022-03-11] MEDS: CYCLOBENZAPRINE HCL 10 MG TABLET (FP) PO SCH ×2 (10:47→22:13)
[2022-03-11] MEDS: HYDROCHLOROTHIAZIDE 25 MG TABLET (FP) PO SCH (10:47)
[2022-03-11] MEDS: ENOXAPARIN NA (PORCINE) 40 MG/0.4 ML DISP.SYRIN SQ SCH (10:48)
[2022-03-11] MEDS ORDERED: oxyCODONE HCL 5 MG TABLET PO ONE ×2 (14:29→16:45)
[2022-03-11] MEDS: SENNOSIDES 8.6MG TABLET (FP) PO SCH (22:13)
[2022-03-12] MEDS: oxyCODONE HCL 5 MG TABLET PO PRN ×3 (04:53→21:48)
[2022-03-12] MEDS: GABAPENTIN 400 MG CAPSULE PO SCH ×3 (06:42→21:47)
[2022-03-12] MEDS: POLYETHYLENE GLYCOL (HEALTHYLAX) 3350 17 GM PACKET PO SCH ×3 (06:42→21:47)
[2022-03-12] MEDS ORDERED: INSULIN (LEVEMIR) 100 UNITS/ML UNITS SQ ONE (07:46)
[2022-03-12 08:57] LABS: BASO % 0.7 % (0-2.0); EOS % 1.4 % (0-4.5); HEMATOCRIT 38.3 % (32.4-45.2); HEMOGLOBIN 13.2 GM/dL (10.7-15.3); LYMPH % 34.4 % (8-40); MCH 31.4 pg (25.7-33.7); MCHC 34.5 g/dl (32.0-36.0); MEAN CELL VOLUME 90.9 fl (80-96); MONO % 10.3 % (3.8-10.2); NEUT % 53.2 % (42.8-82.8); PLATELET COUNT 226 10^3/uL (134-434); RBC 4.22 M/mm3 (3.60-5.2); RDW 14.1 % (11.6-15.6); WHITE BLOOD COUNT 4.8 K/mm3 (4.0-10.0)
[2022-03-12] MEDS: HYDROCHLOROTHIAZIDE 25 MG TABLET (FP) PO SCH (09:13)
[2022-03-12] MEDS: CYCLOBENZAPRINE HCL 10 MG TABLET (FP) PO SCH ×2 (09:13→21:47)
[2022-03-12] MEDS: ENOXAPARIN NA (PORCINE) 40 MG/0.4 ML DISP.SYRIN SQ SCH (09:13)
[2022-03-12] MEDS: DULoxetine HCL 30 MG CAPSULE.DR PO SCH (09:13)
[2022-03-12 09:23] LABS: ALBUMIN 3.5 g/dl (3.4-5.0); BLOOD UREA NITROGEN 20.1 mg/dL (7-18)
[2022-03-12 09:24] LABS: CALCIUM 9.7 mg/dL (8.5-10.1)
[2022-03-12 09:26] LABS: CREATININE 0.8 mg/dL (0.55-1.3); TOT PROT 6.8 g/dl (6.4-8.2)
[2022-03-12 09:28] LABS: BILIRUBIN,TOTAL 0.8 mg/dL (0.2-1)
[2022-03-12] MEDS ORDERED: CYCLOBENZAPRINE HCL 5 MG TABLET PO ONE ×2 (16:34)
[2022-03-12] MEDS: SENNOSIDES 8.6MG TABLET (FP) PO SCH (21:47)
[2022-03-13] MEDS: GABAPENTIN 400 MG CAPSULE PO SCH ×2 (06:21→14:42)
[2022-03-13] MEDS: POLYETHYLENE GLYCOL (HEALTHYLAX) 3350 17 GM PACKET PO SCH ×2 (06:22→14:42)
[2022-03-13] MEDS: ENOXAPARIN NA (PORCINE) 40 MG/0.4 ML DISP.SYRIN SQ SCH (09:17)
[2022-03-13] MEDS: CYCLOBENZAPRINE HCL 10 MG TABLET (FP) PO SCH (09:17)
[2022-03-13] MEDS: DULoxetine HCL 30 MG CAPSULE.DR PO SCH (09:17)
[2022-03-13] MEDS: HYDROCHLOROTHIAZIDE 25 MG TABLET (FP) PO SCH (09:17)
[2022-03-13] MEDS: oxyCODONE HCL 5 MG TABLET PO PRN (11:36)
[2022-03-13 14:19] VITALS: BP 104/60; PULSE 74; TEMP 97.8
== END 2022-03-13 18:49 | disposition home or self-care (01) | DRG 552 ==
LOC: JER 11:09 → JERBED 14:25 → J6S 03-06 03:17 → OBSVTOIN 03-07 10:50 → J6S 03-08 18:04
PROVIDERS: ADMIT Internal Medicine; ATTEND Nurse Practitioner Family
DX: M96.1 Postlaminectomy syndrome, not elsewhere classified (principal); I50.32 Chronic diastolic (congestive) heart failure; F11.20 Opioid dependence, uncomplicated; M54.6 Pain in thoracic spine; I11.0 Hypertensive heart disease with heart failure; J45.909 Unspecified asthma, uncomplicated; R74.01 Elevation of levels of liver transaminase levels; R74.8 Abnormal levels of other serum enzymes; R26.2 Difficulty in walking, not elsewhere classified; R20.2 Paresthesia of skin; K76.0 Fatty (change of) liver, not elsewhere classified
CPT/HCPCS: 36415; 72141-TC; 72146-TC; 72148-TC; 76705-TC; 80053; 80307; 81003; 82248; 82550; 83735; 84100; 85025; 85610; 85730; 86704; 86803; 86850; 86900; 86901; 87340; 87517; 93005; 93010; 97116-GP; 97161-GP; 99285-25; C9803-CS; G0378; U0003; U0005

== ENCOUNTER 2022-04-05 04:06 | Day surgery (SDC) | payer OTHER ==
[2022-04-03 13:42] VITALS: BMI 27.4
[2022-04-05] MEDS ORDERED: LIDOCAINE HCL/PF 2% SDV 5ML VIAL ONE (07:29)
[2022-04-05] MEDS ORDERED: LIDOCAINE HCL/PF 1% SDV 5ML VIAL ONE (07:32)
[2022-04-05] MEDS ORDERED: LIDOCAINE HCL 1%, 10 MG/ML (50 mL VIAL) NR ONE (08:30)
[2022-04-05 10:53] VITALS: BP 132/87; PULSE 80; RESP 20; TEMP 97.7
== END 2022-04-05 10:40 | disposition home or self-care (01) ==
LOC: JASU-SURG 04:06
PROVIDERS: ATTEND Pain Medicine Pain Medicine
PROC: 01HY3MZ Insertion of Neurostimulator Lead into Peripheral Nerve, Percutaneous Approach (ICD-10-PCS; principal; 2022-04-05 08:00)
DX: G89.4 Chronic pain syndrome (principal); I10 Essential (primary) hypertension
CPT/HCPCS: 64555; C1897; 76000-TC-FY; C1778

== ENCOUNTER 2022-07-12 04:04 | Day surgery (SDC) | payer OTHER ==
[2022-07-09 15:23] VITALS: BMI 27.4
[~2022-07-12 04:04] MED LIST changes: +BUPIVACAINE HCL/PF 0.25% (2.5MG/ML) 10 ML VIAL IJ ONE; -BUPIVACAINE HCL/PF 0.5% (5 MG/ML) 30 ML VIAL IJ ONE; -BUPIVACAINE LIPOSOME/PF (EXPAREL) 266 MG/20 ML VIAL NR ONE; +LIDOCAINE 1% P/F 10 MG/ML VIAL INF ONE; +LIDOCAINE HCL/PF 2% SDV 5ML VIAL INF ONE; -THROMBIN (BOVINE) 5,000 UNIT VIAL TP ONE; -VANCOMYCIN 1,000 MG VIAL (RESTRICTED TO ID ONLY) IVPB ONE; -ceFAZolin SODIUM 1 GM VIAL IVPB ONE
[2022-07-12] MEDS ORDERED: LIDOCAINE HCL/PF 1% SDV 5ML VIAL ONE (07:17)
[2022-07-12] MEDS ORDERED: LIDOCAINE HCL/PF 2% SDV 5ML VIAL ONE (07:17)
[2022-07-12] MEDS ORDERED: BUPIVACAINE HCL/PF 0.25% (2.5MG/ML) 10 ML VIAL ONE (09:17)
[2022-07-12] MEDS ORDERED: LIDOCAINE 1% P/F 10 MG/ML VIAL INF ONE ×2 (10:22)
[2022-07-12] MEDS ORDERED: BUPIVACAINE HCL/PF 0.25% (2.5MG/ML) 10 ML VIAL IJ ONE (10:38)
[2022-07-12] MEDS ORDERED: LIDOCAINE HCL 1% PRESERVATIVE FREE - 30ML VIAL IJ ONE (10:38)
[2022-07-12 11:14] VITALS: RESP 18
[2022-07-12 12:11] VITALS: BP 138/89; PULSE 66; TEMP 98.1
== END 2022-07-12 12:00 | disposition home or self-care (01) ==
LOC: JASU-SURG 04:04
PROVIDERS: ATTEND Pain Medicine Pain Medicine
PROC: 01HY0MZ Insertion of Neurostimulator Lead into Peripheral Nerve, Open Approach (ICD-10-PCS; principal; 2022-07-12 10:00)
DX: G89.4 Chronic pain syndrome (principal); M54.6 Pain in thoracic spine
CPT/HCPCS: 64575; C1778; 76000-TC-FY

== ENCOUNTER 2022-10-15 04:02 | Day surgery (SDC) | payer OTHER ==
[2022-10-11 16:00] VITALS: BMI 27.4
[2022-10-15] MEDS ORDERED: LIDOCAINE HCL/PF 1% SDV 5ML VIAL ONE (07:29)
[2022-10-15 07:53] VITALS: RESP 18
[2022-10-15] MEDS ORDERED: LIDOCAINE HCL 1% PRESERVATIVE FREE - 30ML VIAL IJ ONE ×2 (09:27)
[2022-10-15 10:46] VITALS: TEMP 97.6
[2022-10-15 11:02] VITALS: BP 120/70; PULSE 80
[2022-10-15] MEDS ORDERED: ACETAMINOPHEN 500 MG TABLET (FP) PO PRN (14:14)
== END 2022-10-15 10:35 | disposition home or self-care (01) ==
LOC: JASU-SURG 04:02
PROVIDERS: ATTEND Pain Medicine Pain Medicine
PROC: 01HY3MZ Insertion of Neurostimulator Lead into Peripheral Nerve, Percutaneous Approach (ICD-10-PCS; principal; 2022-10-15 09:00)
DX: G89.4 Chronic pain syndrome (principal)
CPT/HCPCS: 64555; C1778; 76000-TC-FY

== ENCOUNTER 2023-07-29 03:52 | Day surgery (SDC) | payer OTHER ==
[2023-07-24 11:36] VITALS: BMI 27.4
[2023-07-29] MEDS ORDERED: LIDOCAINE HCL/PF 1% SDV 5ML VIAL ONE (07:20)
[2023-07-29] MEDS: LIDOCAINE 1% P/F 10 MG/ML VIAL INF ONE (09:20)
[2023-07-29 10:17] VITALS: BP 130/82; PULSE 70; RESP 20; TEMP 97.8
[2023-07-29] MEDS ORDERED: ACETAMINOPHEN 500 MG TABLET (FP) PO PRN (10:58)
== END 2023-07-29 10:12 | disposition home or self-care (01) ==
LOC: JASU-SURG 03:52
PROVIDERS: ATTEND Pain Medicine Pain Medicine
PROC: 01HY3MZ Insertion of Neurostimulator Lead into Peripheral Nerve, Percutaneous Approach (ICD-10-PCS; principal; 2023-07-29 08:45)
DX: G89.4 Chronic pain syndrome (principal)
CPT/HCPCS: 64555; C1778; 76000-TC-FY

== ENCOUNTER 2023-10-10 04:19 | Day surgery (SDC) | payer OTHER ==
[2023-10-07 14:00] VITALS: BMI 26.6
[2023-10-10 06:36] VITALS: RESP 18
[2023-10-10] MEDS ORDERED: BUPIVACAINE HCL/PF 0.25% (2.5MG/ML) 10 ML VIAL ONE (07:19)
[2023-10-10] MEDS ORDERED: BUPIVACAINE HCL/PF 0.75% 10 ML VIAL ONE (07:20)
[2023-10-10] MEDS ORDERED: BUPIVACAINE HCL/PF 0.5% (5MG/ML) 10 ML VIAL ONE (07:20)
[2023-10-10] MEDS ORDERED: LIDOCAINE HCL/PF 1% SDV 5ML VIAL ONE (07:20)
[2023-10-10] MEDS ORDERED: LIDOCAINE HCL/PF 2% SDV 5ML VIAL ONE (07:24)
[2023-10-10] MEDS: LIDOCAINE HCL 1% PRESERVATIVE FREE - 30ML VIAL IJ ONE (08:36)
[2023-10-10 10:40] VITALS: BP 126/86; PULSE 66; TEMP 98.4
[2023-10-10] MEDS ORDERED: ACETAMINOPHEN 500 MG TABLET (FP) PO PRN (13:23)
== END 2023-10-10 09:19 | disposition home or self-care (01) ==
LOC: JASU-SURG 04:19
PROVIDERS: ATTEND Pain Medicine Pain Medicine
PROC: 01HY3MZ Insertion of Neurostimulator Lead into Peripheral Nerve, Percutaneous Approach (ICD-10-PCS; principal; 2023-10-10 08:00)
PROC: 01HY3MZ Insertion of Neurostimulator Lead into Peripheral Nerve, Percutaneous Approach (ICD-10-PCS; 2023-10-10 08:00)
DX: G89.4 Chronic pain syndrome (principal)
CPT/HCPCS: 64555; C1778; 76000-TC-FY

== ENCOUNTER 2023-12-11 03:59 | Day surgery (SDC) | payer OTHER ==
[2023-12-05 16:12] VITALS: BMI 27.4
[2023-12-11 07:08] VITALS: RESP 18
[2023-12-11] MEDS ORDERED: LIDOCAINE HCL/PF 1% SDV 5ML VIAL ONE (07:18)
[2023-12-11] MEDS ORDERED: LIDOCAINE HCL/PF 2% SDV 5ML VIAL ONE (07:18)
[2023-12-11] MEDS ORDERED: BUPIVACAINE HCL/PF 0.25% (2.5MG/ML) 10 ML VIAL ONE (07:58)
[2023-12-11] MEDS: LIDOCAINE HCL 1% PRESERVATIVE FREE - 30ML VIAL IJ ONE ×2 (08:32)
[2023-12-11] MEDS: BUPIVACAINE HCL/PF 0.25% (2.5MG/ML) 10 ML VIAL IJ ONE ×2 (08:32)
[2023-12-11 10:15] VITALS: BP 145/78; PULSE 78; TEMP 98
[2023-12-11] MEDS ORDERED: ACETAMINOPHEN 500 MG TABLET (FP) PO PRN (16:43)
== END 2023-12-11 10:50 | disposition home or self-care (01) ==
LOC: JASU-SURG 03:59
PROVIDERS: ATTEND Pain Medicine Pain Medicine
PROC: 01HY0MZ Insertion of Neurostimulator Lead into Peripheral Nerve, Open Approach (ICD-10-PCS; principal; 2023-12-11 08:00)
DX: G89.4 Chronic pain syndrome (principal)
CPT/HCPCS: 64575; C1778; 76000-TC-FY